=== PATIENT | female | born 1940 | race Caucasian/White ===

== ENCOUNTER 2016-07-19 10:53 | Inpatient (IN) | payer MEDICARE, OTHER ==
[~2016-07-19] VITALS: Ht 165.1 cm; Wt 114.4 kg
[~2016-07-19 10:53] MED LIST: FURO1TAB60 PO; HYDR-3516 PO; LEVA500T PO; Spironolactone PO
[2016-07-19 10:58] VITALS: BP 133/66; PULSE 95; RESP 20; TEMP 98.9; O2SAT 99
[2016-07-19] MEDS ORDERED: CIPR-9 PO (11:04)
[2016-07-19] MEDS ORDERED: ZOFR4TAB PO (11:04)
[2016-07-19] MEDS ORDERED: SODIUM CHLOR 0.9% 1000 ML INJ 1,000 ML IV SCH ×2 (11:22→16:48)
[2016-07-19] MEDS ORDERED: MORPHINE SULFATE 4 MG/ML INJ IV PUSH ONE ×2 (11:45→16:00)
[2016-07-19] MEDS ORDERED: ONDANSETRON HCL 4 MG/2 ML VIAL IV PUSH ONE ×2 (11:45→18:00)
[2016-07-19 12:18] LABS: AUTOMATED NEUTROPHIL # 21.5 TH/MM3 (1.8-7.7); BASOPHIL # 0.1 TH/MM3 (0-0.2); BASOPHIL % 0.3 % (0.0-2.0); EOSINOPHIL % 0.1 % (0.0-4.0); HEMATOCRIT 35.7 % (35.0-46.0); HEMO FLAGS DIFF FINAL; LYMPH % 6.8 % (9.0-44.0); LYMPHOCYTE # 1.7 TH/MM3 (1.0-4.8); MEAN CELL VOLUME 94.4 FL (80.0-100.0); MEAN CORPUSCULAR HEMOGLOBIN 31.9 PG (27.0-34.0); MEAN CORPUSCULAR HGB CONC 33.8 % (32.0-36.0); MONO % 6.7 % (0.0-8.0); NEUT % 86.1 % (16.0-70.0); PLATELET COUNT 299 TH/MM3 (150-450); RED BLOOD COUNT 3.79 MIL/MM3 (4.00-5.30); RED CELL DISTRIBUTION WIDTH 14.9 % (11.6-17.2)
--- NOTE | 2016-07-19 12:18 | PD ---
HPI Chief Complaint: Abdominal Pain Time Seen by Provider: 12:14 Travel History International Travel<30 days: No Contact w/Intl Traveler<30days: No Traveled to known affect area: No History of Present Illness HPI 75-year-old female that presents to the ED for evaluation of abdominal pain that she's had for the past couple of days. Per patient she has a history of a hernia that was repaired in the 90s. Per patient she's been having discomfort in her abdomen since yesterday. Per patient she feels nauseous but she hasn't vomited. The patient her pain is 8 out of 10. She does have a history of chronic lower leg infections for which she sees her doctor. Patient's primary care doctor is Dr. Roberson. Per patient the pain does not radiate and stays mainly on the abdomen. Diffuse. Denies any bowel movement issues and states that her last bowel movement was yesterday. Eating and drinking okay. Patient lives at home with son who takes care of her. She denies any trauma. No fevers chills or sweats. No allergies to medication. She has not seen anybody for this. No bleeding. Nothing makes it better. Touching makes the pain worse. PFSH Past Medical History Arthritis: Yes Heart Rhythm Problems: Yes (a. fib) Cancer: No Cardiovascular Problems: Yes Endocrine: No Gastrointestinal Disorders: Yes Genitourinary: No Hypertension: Yes Immune Disorder: No Implanted Vascular Access Dvce: No Musculoskeletal: Yes (RT ELBOW INJURY) Neurologic: Yes Psychiatric: No Reproductive: No Respiratory: No Migraines: Yes Thyroid Disease: Yes Tetanus Vaccination: Unknown ?: Not : 3 Para: 2 Miscarriage: 1 Past Surgical History Abdominal Surgery: Yes (CHOLECYSTECTOMY, HERNIA REPAIR) Cholecystectomy: Yes Eye Surgery: Yes Other Surgery: Yes Social History Alcohol Use: No Tobacco Use: No Substance Use: No Allergies-Medications (Allergen,Severity, Reaction): Coded Allergies: No Known Allergies (Unverified , 07/19/16) Reported Meds & Prescriptions Reported Meds & Active Scripts Active Lasix (Furosemide) 40 Mg Tab 40 Mg PO DAILY 90 Days Reported Zofran (Ondansetron HCl) 4 Mg Tab 4 Mg PO Q6HR PRN Cipro (Ciprofloxacin HCl) 500 Mg Tab 500 Mg PO BID Review of Systems General / Constitutional: No: Fever, Chills, Weight Gain, Weight Loss, Other Eyes: No: Diploplia, Blurred Vision, Photophobia, Drainage, Redness, Foreign Body Sensation, Pain, Tearing, Blind Spots, Visual changes, Blindness, Other HENT: No: Headaches, Vertigo, Lightheadedness, Sore Throat, Rhinitis, Rhinorrhea, Congestion, Nosebleed, Neck Stiffness, Neck Pain, Masses, Gingival Bleeding, Dental Difficulties, Ear Discharge, Earache, Other Cardiovascular: No: Chest Pain or Discomfort, Palpitations, Irregular Rhythm, Tachycardia, Diaphoresis, Syncope, Dyspnea on exertion, Varicosities, Edema, Cyanosis, Varicosities, Phlebitis, Claudication, Other Respiratory: No: Cough, Shortness of Breath, Wheezing, Sneezing, Orthopnea, Hemoptysis, Stridor, Night Sweats, Pleuritic Pain, Other Gastrointestinal: Positive: Nausea, Abdominal Pain, No: Vomiting, Diarrhea, Hematemesis, Hematochezia, Constipation, Changes in Bowel Habits, Indigestion, Dysphagia, Loss of Appetite, Other Genitourinary: No: Urgency, Frequency, Dysuria, Nocturia, Hematuria, Decreased Urinary Output, Oliguria, Hesitancy, Dribbling, Incontinence, Pelvic Pain, Flank Pain, Dyspareunia, Discharge, Dysmenorrhea, Menorrhagia, Metorrhagia, Vaginal Bleeding, Other Musculoskeletal: No: Myalgias, Arthralgias, Limited ROM, Weakness, Cramping, Edema, Pain, Atrophy, Other Skin: Positive Lumps, No Rash, No Itching, No Dryness, No Hives, No Change in Pigmentation, No Change in nails, No Alopecia, No Lesions, No Breast Lumps, No Breast Tenderness, No Breast Swelling, No Other Neurologic: No: Weakness, Dizziness, Syncope, Focal Abnormalities, Coordination Problem, Tremor, Ataxia, Headache, Change in Mentation, Slurred Speech, Paresthesia, Incontinence, Seizures, Sensory Disturbance, Other Psychiatric: No: Anxiety, Depression, Suicidal Ideations, Disorder of Thought, Mood Disorder, Substance Abuse, Homicidal Ideation, Other Endocrine: No: Heat Intolerance, Cold Intolerance, Polyuria, Polydipsia, Other Hematologic/Lymphatic: No: Easy Bruising, Lymph Node Enlargement, Other Physical Exam Narrative GENERAL: SKIN: Warm and dry. HEAD: Atraumatic. Normocephalic. EYES: Pupils equal and round. No scleral icterus. No injection or drainage. ENT: No nasal bleeding or discharge. Mucous membranes pink and moist. Tongue is midline. No uvula deviation. NECK: Trachea midline. No JVD. CARDIOVASCULAR: Regular rate and rhythm. No murmurs, S3, S4. RESPIRATORY: No accessory muscle use. Clear to auscultation. Breath sounds equal bilaterally. GASTROINTESTINAL: Abdomen soft, patient has what appears to be a small hernia on the mid epigastric area. She does have what appears to be very erythema with purulence with a small opening that is draining some purulence material. This is located just above the umbilical area. About 2 cm in diameter. Tender to touch in this area, nondistended. Hepatic and splenic margins not palpable. MUSCULOSKELETAL: Extremities without clubbing, cyanosis, or edema. No obvious deformities. Full range of motion of the upper and lower extremities bilaterally. 2+ pulses bilaterally. NEUROLOGICAL: Awake and alert. No obvious cranial nerve deficits. Motor grossly within normal limits. Five out of 5 muscle strength in the arms and legs. Normal speech. PSYCHIATRIC: Appropriate mood and affect; insight and judgment normal. Data Data Last Documented VS Vital Signs Date Time Temp Pulse Resp B/P Pulse Ox O2 Delivery O2 Flow Rate FiO2 07/19/16 13:40 89 22 132/78 98 07/19/16 10:58 98.9 Orders Complete Blood Count With Diff (07/19/16 11:22) Comprehensive Metabolic Panel (07/19/16 11:22) Lipase (07/19/16 11:22) Prothrombin Time / Inr (Pt) (07/19/16 11:22) Act Partial Throm Time (Ptt) (07/19/16 11:22) Urinalysis - C+S If Indicated (07/19/16 11:22) Ct Abd/Pel W Iv Contrast(Rout) (07/19/16 11:22) Iv Access Insert/Monitor (07/19/16 11:22) Sodium Chlor 0.9% 1000 Ml Inj (Ns 1000 M (07/19/16 11:22) Morphine Inj (Morphine Inj) (07/19/16 11:45) Ondansetron Inj (Zofran Inj) (07/19/16 11:45) Blood Culture (07/19/16 11:36) Lactic Acid Sepsis Protocol (07/19/16 11:36) Wound Culture And Gram Stain (07/19/16 11:42) Iodixanol 320 Inj (Rad Ct) (Visipaque 32 (07/19/16 13:29) Vancomycin Inj (Vancomycin Inj) (07/19/16 13:44) Piperacil-Tazo 4.5 Gm Premix (Zosyn 4.5 (07/19/16 13:44) Ng Gastric Tube Insert/Monitor (07/19/16 14:41) Morphine Inj (Morphine Inj) (07/19/16 16:00) Labs Laboratory Tests Test 07/19/16 07/19/16 12:00 12:50 White Blood Count 25.0 TH/MM3 Red Blood Count 3.79 MIL/MM3 Hemoglobin 12.1 GM/DL Hematocrit 35.7 % Mean Corpuscular Volume 94.4 FL Mean Corpuscular Hemoglobin 31.9 PG Mean Corpuscular Hemoglobin 33.8 % Concent Red Cell Distribution Width 14.9 % Platelet Count 299 TH/MM3 Mean Platelet Volume 8.2 FL Neutrophils (%) (Auto) 86.1 % Lymphocytes (%) (Auto) 6.8 % Monocytes (%) (Auto) 6.7 % Eosinophils (%) (Auto) 0.1 % Basophils (%) (Auto) 0.3 % Neutrophils # (Auto) 21.5 TH/MM3 Lymphocytes # (Auto) 1.7 TH/MM3 Monocytes # (Auto) 1.7 TH/MM3 Eosinophils # (Auto) 0.0 TH/MM3 Basophils # (Auto) 0.1 TH/MM3 CBC Comment DIFF FINAL Differential Comment Sodium Level 136 MEQ/L Potassium Level 4.0 MEQ/L Chloride Level 103 MEQ/L Carbon Dioxide Level 23.1 MEQ/L Anion Gap 10 MEQ/L Blood Urea Nitrogen 25 MG/DL Creatinine 1.30 MG/DL Estimat Glomerular Filtration 40 ML/MIN Rate Random Glucose 119 MG/DL Lactic Acid Level 1.8 mmol/L Calcium Level 8.6 MG/DL Total Bilirubin 0.6 MG/DL Aspartate Amino Transf 40 U/L (AST/SGOT) Alanine Aminotransferase 54 U/L (ALT/SGPT) Alkaline Phosphatase 120 U/L Total Protein 8.3 GM/DL Albumin 3.0 GM/DL Lipase 75 U/L Prothrombin Time 12.5 SEC Prothromb Time International 1.1 RATIO Ratio Activated Partial 31.2 SEC Thromboplast Time MDM Medical Decision Making Medical Screen Exam Complete: Yes Emergency Medical Condition: Yes Medical Record Reviewed: Yes Interpretation(s) CBC & BMP Diagram 07/19/16 12:00 LFTs and lipase WNL lactic acid WNL Last Impressions Abdomen/Pelvis CT 07/19/16 1122 Signed Impressions: Service Date/Time: July 13:26 - CONCLUSION: 1. Large ventral hernia containing small and large bowel. Several small bowel loops appear incarcerated with some fecalization of small bowel contents and dilatation characteristic of at least a partial small bowel obstruction. Martín Anaya MD Differential Diagnosis Abscesses versus acute abdomen versus abdominal obstruction versus cellulitis versus pancreatitis versus hernia versus strangulated hernia Narrative Course 75-year-old female that presents to the ED for evaluation of abdominal pain. Patient was properly examined and was found to have signs and symptoms consistent appears to be abdominal pain likely from infection. Recommendation at this time is for labs and imaging. Patient was given IV pain medication with good results. Labs and imaging showed leukocytosis and incarcerated hernia with possible small bowel partial obstruction. Case was discussed in my attending Dr. Mani Arreguin who agrees that Gen. surgery should be contacted. I spoke personally with Dr. Arreguin who states that he will come here and see the patient and likely admit for possible surgery. This was discussed with the patient who agrees with plan. Dr. Arreguin came in and evaluated the patient and recommends admission to his service. Likely surgery. Sepsis Criteria SIRS Criteria (2 or more): Heart rate over 90, WBC > 29849, < 4000 or > 10% bands Sepsis Criteria (SIRS+source): Infect source susp/known Criteria Outcome: Meets sepsis criteria Diagnosis Primary Impression: Incarcerated hernia Additional Impressions: Sepsis Qualified Code: A41.9 - Sepsis, due to unspecified organism Partial small bowel obstruction Admitting Information Admitting Physician Requests: Admit Librado Gutierrez Jul 19, 2016 12:18
[2016-07-19 12:47] LABS: ANION GAP 10 MEQ/L (5-15); AST (GOT) 40 U/L (15-37); BICARBONATE 23.1 MEQ/L (21.0-32.0); BLOOD UREA NITROGEN 25 MG/DL (7-18); CHLORIDE 103 MEQ/L (98-107); GLOMERULAR FILTRATION RATE 40 ML/MIN (>89); SODIUM (NA) 136 MEQ/L (136-145)
[2016-07-19 12:51] LABS: ALKALINE PHOSPHATASE 120 U/L (45-117); ALT (GPT) 54 U/L (10-53); TOTAL BILIRUBIN ADULT 0.6 MG/DL (0.2-1.0)
[2016-07-19 13:19] LABS: APTT (PATIENT) 31.2 SEC (24.3-30.1); INTERNATIONAL NORMALIZED RATIO 1.1 RATIO; PROTHROMBIN TIME - PATIENT 12.5 SEC (9.8-11.6)
[2016-07-19] MEDS ORDERED: IODIXANOL 320 MG/ML 10 ML VIAL (for Rad CT) IV ONE (13:29)
[2016-07-19 13:40] VITALS: BP 132/78; PULSE 89; RESP 22; O2SAT 98
[2016-07-19] MEDS ORDERED: VANCOMYCIN INJ 1,000 MG in SODIUM CHLOR 0.9% 250 ML INJ 250 ML IV STA (13:44)
[2016-07-19] MEDS ORDERED: PIPERACIL-TAZO 4.5 GM PREMIX 100 ML IV STA (13:44)
--- NOTE | 2016-07-19 14:30 | RADRPT ---
EXAM DATE/TIME: 07/19/2016 13:26 [facility] COMPARISON: No previous studies available for comparison. INDICATIONS : Right upper quadrant pain. IV CONTRAST: 47 cc Visipaque (iodixanol) IV ORAL CONTRAST: No oral contrast ingested. RADIATION DOSE: 15.98 CTDIvol (mGy) MEDICAL HISTORY : Hypertension. Cardiovascular disease SURGICAL HISTORY : Cholecystectomy. Umbilical hernia repair. ENCOUNTER: Initial ACUITY: 2 days PAIN SCALE: 6/10 LOCATION: Right upper quadrant TECHNIQUE: Volumetric scanning of the abdomen and pelvis was performed. Using automated exposure control and ad justment of the mA and/or kV according to patient size, radiation dose was kept as low as reasonably achievable to obtain optimal diagnostic quality images. FINDINGS: There is a large predominantly right-sided ventral hernia containing multiple loops of small bowel. S everal small bowel loops appear incarcerated with some fecalization of small bowel contents and at le ast a partial small bowel obstruction. There is also a loop of colon within the ventral hernia. No significant abnormality the liver, spleen, adrenals, kidneys or pancreas. No calcified gallstones a very ductal dilatation. No free air or free fluid. CONCLUSION: 1. Large ventral hernia containing small and large bowel. Several small bowel loops appear incarcerat ed with some fecalization of small bowel contents and dilatation characteristic of at least a partial small bowel obstruction. Martín Anaya MD on July 19, 2016 at 14:25 Board Certified Radiologist. This report was verified electronically.
[2016-07-19] MEDS ORDERED: ceFAZolin INJ 1,000 MG VIAL ONE (17:33)
[2016-07-19 17:45] LABS: BACTERIA, URINE OCC /hpf; BLOOD, URINE MOD (NEG); COMMENT (UR) CULT NOT INDICATED; CULTURE IF INDICATED CULT NOT INDICATED; GLUCOSE,URINE NEG (NEG); KETONE, URINE NEG (NEG); MUCUS URINE FEW /lpf (OCC); NITRITE,URINE NEG (NEG); PH, URINE 5.5 (5.0-8.5); SQUAMOUS EPITHELIAL CELL URINE 3 /hpf (0-5); URINE COLOR YELLOW (YELLW/STRAW)
[2016-07-19 17:50] VITALS: BP 132/74
[2016-07-19] MEDS ORDERED: SODIUM CHLOR 0.9% 250 ML INJ 250 ML IV ONE (18:00)
[2016-07-19] MEDS ORDERED: PHENYLEPH/NS 1000 MCG/10 ML SYR IV ONE (18:00)
[2016-07-19] MEDS ORDERED: NORMOSOL R INJ 3,000 ML IV ONE (18:00)
[2016-07-19] MEDS ORDERED: PROPOFOL 200 MG/20 ML AMP IV ONE (18:00)
[2016-07-19] MEDS ORDERED: SODIUM CHLORID 0.9% 500 ML INJ 500 ML IV ONE (18:00)
[2016-07-19] MEDS ORDERED: LACTATED RINGER'S 1000 ML INJ 1,000 ML IV ONE (18:00)
--- NOTE | 2016-07-19 18:09 | HHI.HP ---
[facility] Service General surgery Primary Care Physician Jose Enrique Roberson MD Admission Diagnosis incarcerated hernia, sepsis, partial obstruction Chief Complaint: Abdominal pain History of Present Illness This is a 75-year-old female who has had abdominal pain since yesterday. She has had nausea but no vomiting. The patient is somewhat of a poor historian. She does state that in 1995 she had a ventral hernia repair in that same year she ended up having a cholecystectomy. She says that this past December she had an issue with the recurrent abdominal hernia but that resolved. She has had no problems since then until yesterday. She states that she has had bowel movement and flatus as recently as yesterday. She does have bilateral lower extremity wounds which are wraps at this time. She sees wound care for this. She is on clindamycin currently for the lower extremity wounds. In the emergency department she was noted on exam to have a large non-reducible ventral hernia with drainage from the midportion. Lab's revealed a white blood count of 25,[address] abdomen and pelvis shows an at least partially incarcerated large ventral hernia including small and large bowel. There is feculization of some of the small bowel. Review of Systems Constitutional: DENIES: Fever, Chills Eyes: DENIES: Eye inflammation Respiratory: DENIES: Cough, Sputum production Cardiovascular: DENIES: Chest pain, Palpitations Gastrointestinal: COMPLAINS OF: Abdominal pain, Nausea Musculoskeletal: DENIES: Back pain, Neck pain Integumentary: DENIES: Pruritus, Rash Past Family Social History Past Medical History Bilateral lower extremity wounds Hypertension Questionable atrial fibrillation per the chart Past Surgical History Cholecystectomy, ventral hernia repair Reported Medications Reported Meds & Active Scripts Active Lasix (Furosemide) 40 Mg Tab 40 Mg PO DAILY 90 Days Reported Zofran (Ondansetron HCl) 4 Mg Tab 4 Mg PO Q6HR PRN Cipro (Ciprofloxacin HCl) 500 Mg Tab 500 Mg PO BID Allergies: Coded Allergies: No Known Allergies (Unverified , 07/19/16) Family History Noncontributory Social History No alcohol tobacco or drug use. She lives with her son. Physical Exam Vital Signs Vital Signs Date Time Temp Pulse Resp B/P Pulse Ox O2 Delivery O2 Flow Rate FiO2 07/19/16 13:40 89 22 132/78 98 07/19/16 10:58 98.9 95 20 133/66 99 Physical Exam GENERAL: Somewhat sleepy. Appears uncomfortable. Overweight. Frail and somewhat chronically ill-appearing. HEAD: Normocephalic. Atraumatic. EYES: Pupils equal round and reactive to light bilaterally. No scleral icterus. ENT: NG tube in place with some serosanguineous output CHEST: Lungs clear to auscultation bilaterally with no wheezing or rhonchi. No respiratory distress. CARDIOVASCULAR: Regular rate and rhythm. ABDOMEN: Very large ventral hernia with firm bowel present. It is not reducible. It is only mildly tender. There is a 4 cm area of blistering skin with small amount of purulent drainage in the middle. She has well-healed incisions in the right upper abdomen. Moderate tenderness in the right abdomen away from the hernia. The left upper abdomen is nontender. EXTREMITIES: Bandages along lower legs. SKIN: cool, dry, nonjaundiced. Laboratory Laboratory Tests Test 07/19/16 07/19/16 07/19/16 12:00 12:50 17:00 White Blood Count 25.0 Red Blood Count 3.79 Hemoglobin 12.1 Hematocrit 35.7 Mean Corpuscular Volume 94.4 Mean Corpuscular Hemoglobin 31.9 Mean Corpuscular Hemoglobin 33.8 Concent Red Cell Distribution Width 14.9 Platelet Count 299 Mean Platelet Volume 8.2 Neutrophils (%) (Auto) 86.1 Lymphocytes (%) (Auto) 6.8 Monocytes (%) (Auto) 6.7 Eosinophils (%) (Auto) 0.1 Basophils (%) (Auto) 0.3 Neutrophils # (Auto) 21.5 Lymphocytes # (Auto) 1.7 Monocytes # (Auto) 1.7 Eosinophils # (Auto) 0.0 Basophils # (Auto) 0.1 CBC Comment DIFF FINAL Differential Comment Sodium Level 136 Potassium Level 4.0 Chloride Level 103 Carbon Dioxide Level 23.1 Anion Gap 10 Blood Urea Nitrogen 25 Creatinine 1.30 Estimat Glomerular Filtration 40 Rate Random Glucose 119 Lactic Acid Level 1.8 Calcium Level 8.6 Total Bilirubin 0.6 Aspartate Amino Transf 40 (AST/SGOT) Alanine Aminotransferase 54 (ALT/SGPT) Alkaline Phosphatase 120 Total Protein 8.3 Albumin 3.0 Lipase 75 Prothrombin Time 12.5 Prothromb Time International 1.1 Ratio Activated Partial 31.2 Thromboplast Time Urine Color YELLOW Urine Turbidity HAZY Urine pH 5.5 Urine Specific [place] GREATER THAN 1.050 Urine Protein 30 Urine Glucose (UA) NEG Urine Ketones NEG Urine Occult Blood MOD Urine Nitrite NEG Urine Bilirubin NEG Urine Urobilinogen LESS THAN 2.0 Urine Leukocyte Esterase NEG Urine RBC 7 Urine WBC 6 Urine Squamous Epithelial 3 Cells Urine Bacteria OCC Urine Mucus FEW Microscopic Urinalysis Comment CULT NOT INDICATED Date/Time Procedure Status Source Growth 07/19/16 12:10 Gram Stain Received Wound Abdomen Pending 07/19/16 12:10 Wound Culture Received Wound Abdomen Pending 07/19/16 12:05 Aerobic Blood Culture Received Blood Peripheral Pending 07/19/16 12:05 Anaerobic Blood Culture Received Blood Peripheral Pending Result Diagram: 07/19/16 1200 07/19/16 1200 Imaging Last Impressions Abdomen/Pelvis CT 07/19/16 1122 Signed Impressions: Service Date/Time: July 13:26 - CONCLUSION: 1. Large ventral hernia containing small and large bowel. Several small bowel loops appear incarcerated with some fecalization of small bowel contents and dilatation characteristic of at least a partial small bowel obstruction. Martín Anaya MD Assessment and Plan Assessment and Plan 75-year-old female with acute incarceration of small bowel and colon in a large ventral incisional recurrent hernia. There appears to be a possible fistula but this is also acute. I think the best option is to proceed with laparotomy to decrease risk of ischemic bowel. I discussed with the patient that she may require small bowel resection and possibly colostomy. She may have a large wound. She will likely have a somewhat prolonged hospitalization. I also spoke with her son by phone. She desires to proceed at this time. Consents are being obtained. RodríguezRaffi guo MD Jul 19, 2016 18:09
[2016-07-19] MEDS ORDERED: metroNIDAZOLE 500 MG INJ 100 ML IV ONE (18:15)
[2016-07-19] MEDS ORDERED: LEVOFLOXACIN 500 MG PREMIX INJ 100 ML IV ONE (18:15)
[2016-07-19] MEDS ORDERED: SUGAMMADEX SODIUM 200 MG/2 ML VIAL IV PUSH ONE ×2 (18:18)
[2016-07-19 21:10] LABS: BLOOD GAS BASE EXCESS -6.8 mmol/L (-2-2); BLOOD GAS CARBOXYHEMOGLOBIN 2.2 % (0-4); BLOOD GAS HCO3 18 mmol/L (22-26); BLOOD GAS METHEMOGLOBIN 0.9 % (0-2); BLOOD GAS O2 HGB SATURATION 97 % (90-100); BLOOD GAS OXYGEN CONTENT 15.7 Vol % (12.0-20.0); BLOOD GAS PCO2 32 mmHg (38-42); BLOOD GAS PO2 226 mmHg (61-120); BLOOD GAS TOTAL HGB 11.2 G/DL (12.0-16.0); CRITICAL VALUE NO; DRAW SITE ART LINE; FIO2 60 %; OXYGEN DEVICE O.R. GAS; STAT YES; TEMP CORR TO 98.6; VENT SETTINGS O.R. GAS
--- NOTE | 2016-07-19 21:59 | HHI.PR ---
cc: Raffi Arreguin MD; Jose Enrique Roberson MD Immediate Post Op Note Procedure Date: Jul 19, 2016 Pre Op Diagnosis: (1) Incarcerated hernia Post Op Diagnosis: (1) Incarcerated hernia (2) Small bowel strangulation Surgeon: Raffi Arreguin Mingle Operator(s): Latrell Procedure: Exploratory laparotomy Lysis of adhesions > 1hr Ileocecectomy Primary repair recurrent incarcerated ventral incisional hernia Findings: dense adhesions large incarcerated ventral incisional hernia Small bowel and cecal ischemia Complications: none Specimen(s) removed: lleum/cecum/appendix Estimated blood loss: 200cc Anesthesia: General Drains: None Fluids: 4L Patient to: PACU Patient Condition: Raffi Richards MD Jul 19, 2016 21:59
[2016-07-19] MEDS ORDERED: Post-op Orders (for Pharmacy) MISC XX ONE (22:00)
[2016-07-19] MEDS ORDERED: SODIUM CHLORIDE 0.9% FLUSH 5 ML FLUSH IVF PRN (22:00)
[2016-07-19] MEDS ORDERED: HYDROmorphone HCL PCA 6 MG/30 ML IV SCH (22:00)
[2016-07-19] MEDS ORDERED: ACETAMINOPHEN 1000 MG/100 ML VIAL IV SCH (22:00)
[2016-07-19] MEDS ORDERED: ONDANSETRON HCL 4 MG/2 ML VIAL IV PRN (22:00)
[2016-07-19] MEDS ORDERED: BENZOCAINE 20% ORAL SPR 60 ML CAN MT PRN (22:00)
[2016-07-19] MEDS ORDERED: PANTOPRAZOLE SODIUM 40 MG VIAL IV SCH (22:00)
[2016-07-19] MEDS: PCA - TOTAL MG DILAUDID DELIVERED PER SHIFT OTHER SCH (22:00)
[2016-07-19] MEDS ORDERED: NALOXONE HCL 0.4 MG/ML AMP IV PRN ×2 (22:00)
[2016-07-19] MEDS ORDERED: DO NOT ADM ANY ANTICOAGULANT DRUGS XX PRN (22:10)
[2016-07-19] MEDS ORDERED: fentaNYL CITRATE 250 MCG/5 ML AMP ONE (22:13)
[2016-07-19] MEDS ORDERED: *HYDROmorphone PF 1 MG VIAL PERIprocedural Use ONLY ONE (22:36)
[2016-07-19] MEDS ORDERED: HYDROmorphone HCL PF 1 MG/ML VIAL IV ONE (22:40)
[2016-07-19] MEDS: LACTATED RINGER'S 1000 ML INJ 1,000 ML IV SCH (23:00)
[2016-07-19] MEDS ORDERED: SODIUM CHLOR 0.9% 1000 ML INJ 1,000 ML IV ONE (23:45)
--- NOTE | 2016-07-19 23:48 | PD.OP ---
cc: Raffi Arreguin MD Operative Report Date of Surgery: Jul 19, 2016 Preoperative Diagnosis: (1) Incarcerated hernia (2) Small bowel strangulation Postoperative Diagnosis: (1) Enterocutaneous fistula (2) Incarcerated hernia (3) Small bowel strangulation Procedure: Exploratory laparotomy Lysis of adhesions greater than one hour Ileocecectomy [place]own of enterocutaneous fistula Primary repair of recurrent incarcerated ventral incisional hernia Anesthesia: ALKA Surgeon: Raffi Arreguin Aboriginal Liaison Officer(s): Latrell Operation and Findings: Estimated blood loss: 200 cc Complications: None apparent Indications: This is a 75-year-old female with a very large incarcerated ventral incisional hernia. She reportedly had repair of a hernia in this area and 1995. She was a somewhat poor historian but apparently this past summer she was evaluated for the hernia but improved. Yesterday she developed abdominal pain which increased in severity. She came to the emergency room today was noted to have a large incarcerated ventral hernia with abdominal tenderness leukocytosis of 25,[address] scan concerning for incarcerated hernia with partial bowel obstruction. After detailed discussion with the patient as well as discussion by phone with her son we opted to proceed to the operating room. Operative findings: The patient had extensive fairly dense adhesions in the hernia sac. There was incarcerated colon as well as small bowel. A fairly significant portion of small bowel was ischemic. The cecum did not appear healthy and had a couple of patchy ischemic areas. There was a developing enterocutaneous fistula which was taken down and that portion of small bowel removed with the ileocecectomy. The overlying skin of the umbilicus which is where the fistula was present was excised. The fascia actually had minimal tension and was closed primarily. Procedure in detail: The patient was taken to the operating room and placed in supine position. Gen. endotracheal anesthesia was induced. The abdomen was prepped and draped in usual sterile fashion. Surgical timeout was performed to verify correct patient procedure and site. Patient was administered antibiotics. NG tube was already in place and a Martin catheter had been placed. An incision was made overlying the hernia partially and an area of the previous scar. Careful dissection was performed to delineate the anatomy and underlying bowel was identified and noted to be dusky appearing. Sharp and blunt dissection was performed to separate extensive adhesions between hernia sac, abdominal wall, small bowel and colon. This portion of the case took between 1 and 2 hours. There were 2 or 3 very large hernias with bridging fascia and also multiple smaller hernia surrounding this. There was evidence of multiple sutures from previous repair. There was an area of developing small intestine fistulization to the overlying skin. There was drainage at this site which was near the umbilicus. The tract was divided. There were no enterotomies visible. The fascia intra-abdominally was also cleared of adhesions. A significant portion of the ileum was ischemic and the cecum had patchy ischemic areas. Therefore I chose to perform an ileocecectomy which included ischemic small bowel as well as the area of enterocutaneous fistula. The mesentery was divided at a site chosen in the healthy-appearing ileum and this was transected with a ALEXY blue load. A site in the ascending colon which was healthy-appearing was transected with a ALEXY blue load. The mesentery was divided with the Harmonic. The specimen was removed. The ascending colon appeared dusky and was divided more proximally. The new site appeared healthy and well perfused. A [id number] functional end-to-end anastomosis was performed with a ALEXY blue load stapler after creating enterotomies in the ileum and ascending colon portions. A 3-0 silk suture was placed at the crotch of the staple line. The mesenteric defect was closed with running 2-0 silk suture. The anastomotic dissection was allowed to reenter the abdomen. There had been some spillage of succus in the abdomen was copiously irrigated with 5 L of warm normal saline. At this point, the fascia was closed with running #1 looped PDS and a couple of interrupted internal retention sutures with #1 PDS. In the subcutaneous tissue, hernia sac and necrotic fat was excised and the fascial edge better delineated. Further skin and subcutaneous tissue was excised to decrease the area of space and decrease flap size. A deep layer of 2-0 Monocryl was placed in the subcutaneous tissue. Skin was closed loosely with a wide skin stapler. Betadine soaked Telfa was placed in between the estefani. A sterile dressing and an abdominal binder were applied. The patient was in stable condition and extubated and taken to PACU. All sponge and instrument counts were correct. RodríguezRaffi MD Jul 19, 2016 23:48
[2016-07-20] VITALS (14 sets, daily range): BP systolic 97–124; BP diastolic 34–84; PULSE 69–144; RESP 12–25; TEMP 97.6–98; O2SAT 97–100
[2016-07-20] MEDS: KETOROLAC TROMETHAMINE 30 MG/ML (IVP) VIAL IV PUSH SCH ×4 (00:09→18:00)
[2016-07-20] MEDS ORDERED: NOREPINEPHRINE-DEXTROSE DRIP 250 ML IV ONE (01:33)
[2016-07-20] MEDS: metroNIDAZOLE 500 MG INJ 100 ML IV SCH ×3 (01:37→17:40)
--- NOTE | 2016-07-20 02:18 | PD.CONS ---
[facility] Service Critical Care Medicine Consult Requested By Dr. Dallas Arreguin Reason for Consult Critical Care Management Primary Care Physician Jose Enrique Roberson MD History of Present Illness 75 y/o woman s/p laparotomy and resection of ischemic terminal ileum and cecum found incarcerated in a complex ventral hernia. I have seen her directly on her arrival to the [facility] postop. NG tube in place with good proximal decompression. She is lethargic but protects her airway well. Urine is concentrated, limbs are well perfused. Review of Systems ROS Unobtainable aside from no chest pain or SOB. No family. Past Family Social History Allergies: Coded Allergies: No Known Allergies (Unverified , 07/19/16) Past Medical History Past Medical History Arthritis: Yes Heart Rhythm Problems: Yes (a. fib) Cancer: No Cardiovascular Problems: Yes Endocrine: No Gastrointestinal Disorders: Yes Genitourinary: No Hypertension: Yes Immune Disorder: No Implanted Vascular Access Dvce: No Musculoskeletal: Yes (RT ELBOW INJURY) Neurologic: Yes Psychiatric: No Reproductive: No Respiratory: No Migraines: Yes Thyroid Disease: Yes Tetanus Vaccination: Unknown ?: Not : 3 Para: 2 Miscarriage: 1 Past Surgical History Abdominal Surgery: Yes (CHOLECYSTECTOMY, HERNIA REPAIR) Cholecystectomy: Yes Eye Surgery: Yes Other Surgery: Yes Social History Alcohol Use: No Tobacco Use: No Substance Use: No Allergies-Medications Allergies-Medications (Allergen,Severity, Reaction): Coded Allergies: No Known Allergies (Unverified , 07/19/16) Reported Meds & Prescriptions Reported Meds & Active Scripts Active Lasix (Furosemide) 40 Mg Tab 40 Mg PO DAILY 90 Days Reported Zofran (Ondansetron HCl) 4 Mg Tab 4 Mg PO Q6HR PRN Cipro (Ciprofloxacin HCl) 500 Mg Tab 500 Mg PO BID Physical Exam Vital Signs Vital Signs Date Time Temp Pulse Resp B/P Pulse Ox O2 Delivery O2 Flow Rate FiO2 07/20/16 00:45 97.6 83 25 113/51 100 98/34 07/20/16 00:45 83 07/20/16 00:14 97.9 83 14 98 109/45 07/20/16 00:00 80 12 96/44 98 110/40 07/19/16 23:45 81 12 103/55 98 109/42 07/19/16 23:30 88 14 74/41 98 Nasal Cannula 3 108/44 07/19/16 23:15 89 15 89/44 99 Nasal Cannula 3 89/43 07/19/16 23:00 77 14 74/41 99 Simple Mask 6 89/44 07/19/16 23:00 12 07/19/16 22:45 83 14 91/44 99 Simple Mask 6 95/34 07/19/16 22:30 81 15 95/41 96 Simple Mask 6 103/38 07/19/16 22:15 106 15 97/56 98 Simple Mask 6 106/44 07/19/16 22:05 98.9 99 17 113/55 95 Simple Mask 6 96/32 07/19/16 17:50 88 20 132/74 97 07/19/16 13:40 89 22 132/78 98 07/19/16 10:58 98.9 95 20 133/66 99 Physical Exam P 83, SBP 86, R 13, Sats 95% Head: Normal. NG in place. Neck: Supple, airway widely patent. No stridor or snoring. Lungs: Clear, goo excursions. Heart: NL S1S2, no JVD. Abdomen: Binder in place. Extremities: Wraps both lowers. Well perfused. Neuro: Lethargic. Moves arms with purpose. Laboratory Laboratory Tests Test 07/19/16 07/19/16 07/19/16 07/19/16 12:00 12:50 17:00 20:54 White Blood Count 25.0 Red Blood Count 3.79 Hemoglobin 12.1 Hematocrit 35.7 Mean Corpuscular Volume 94.4 Mean Corpuscular Hemoglobin 31.9 Mean Corpuscular Hemoglobin 33.8 Concent Red Cell Distribution Width 14.9 Platelet Count 299 Mean Platelet Volume 8.2 Neutrophils (%) (Auto) 86.1 Lymphocytes (%) (Auto) 6.8 Monocytes (%) (Auto) 6.7 Eosinophils (%) (Auto) 0.1 Basophils (%) (Auto) 0.3 Neutrophils # (Auto) 21.5 Lymphocytes # (Auto) 1.7 Monocytes # (Auto) 1.7 Eosinophils # (Auto) 0.0 Basophils # (Auto) 0.1 CBC Comment DIFF FINAL Differential Comment Sodium Level 136 Potassium Level 4.0 Chloride Level 103 Carbon Dioxide Level 23.1 Anion Gap 10 Blood Urea Nitrogen 25 Creatinine 1.30 Estimat Glomerular Filtration 40 Rate Random Glucose 119 Lactic Acid Level 1.8 Calcium Level 8.6 Total Bilirubin 0.6 Aspartate Amino Transf 40 (AST/SGOT) Alanine Aminotransferase 54 (ALT/SGPT) Alkaline Phosphatase 120 Total Protein 8.3 Albumin 3.0 Lipase 75 Prothrombin Time 12.5 Prothromb Time International 1.1 Ratio Activated Partial 31.2 Thromboplast Time Urine Color YELLOW Urine Turbidity HAZY Urine pH 5.5 Urine Specific [place] GREATER THAN 1.050 Urine Protein 30 Urine Glucose (UA) NEG Urine Ketones NEG Urine Occult Blood MOD Urine Nitrite NEG Urine Bilirubin NEG Urine Urobilinogen LESS THAN 2.0 Urine Leukocyte Esterase NEG Urine RBC 7 Urine WBC 6 Urine Squamous Epithelial 3 Cells Urine Bacteria OCC Urine Mucus FEW Microscopic Urinalysis Comment CULT NOT INDICATED Blood Gas Puncture Site ART LINE Blood Gas Patient Temperature 98.6 Blood Gas HCO3 18 Blood Gas Base Excess -6.8 Blood Gas Oxygen Saturation 97 Arterial Blood pH 7.36 Arterial Blood Partial 32 Pressure CO2 Arterial Blood Partial 226 Pressure O2 Arterial Blood Oxygen Content 15.7 Arterial Blood 2.2 Carboxyhemoglobin Arterial Blood Methemoglobin 0.9 Blood Gas Hemoglobin 11.2 Oxygen Delivery Device O.R. GAS Blood Gas Ventilator Setting O.R. GAS Blood Gas Inspired Oxygen 60 Date/Time Procedure Status Source Growth 07/19/16 12:10 Gram Stain Received Wound Abdomen Pending 07/19/16 12:10 Wound Culture Received Wound Abdomen Pending 07/19/16 12:05 Aerobic Blood Culture Received Blood Peripheral Pending 07/19/16 12:05 Anaerobic Blood Culture Received Blood Peripheral Pending Result Diagram: 07/19/16 1200 07/19/16 1200 Assessment and Plan Assessment and Plan Assessment: 1. S/P emergency bowel resection. 2. NILAM with dehydration. 3. Chronic lower leg edema and cellulitis. Plan: 1. Hydrate with additional liter NS. 2. HOB up 30 degrees. 3. Levophed to keep MAP > 65. 4. Pepcid. 5. Avoid SCDs due to leg wounds. 6. Chemical DVT per surgery service. 7. Restart daily lasix when creatinine improves. Overall impression: Bowel obstruction with dehydration and NILAM. Hydrate aggressively. Follow level of sedation closely. Discussed with nurse.. Regan Castle MD Jul 20, 2016 02:18
[2016-07-20 04:51] LABS: AUTOMATED NEUTROPHIL # 14.5 TH/MM3 (1.8-7.7); BASOPHIL % 0.1 % (0.0-2.0); HEMATOCRIT 25.7 % (35.0-46.0); HEMO FLAGS DIFF FINAL; LYMPH % 5.5 % (9.0-44.0); LYMPHOCYTE # 0.9 TH/MM3 (1.0-4.8); MEAN CORPUSCULAR HEMOGLOBIN 32.1 PG (27.0-34.0); MEAN CORPUSCULAR HGB CONC 34.2 % (32.0-36.0); MONO % 3.8 % (0.0-8.0); NEUT % 90.6 % (16.0-70.0); PLATELET COUNT 202 TH/MM3 (150-450); RED BLOOD COUNT 2.74 MIL/MM3 (4.00-5.30); RED CELL DISTRIBUTION WIDTH 14.9 % (11.6-17.2)
[2016-07-20 05:36] LABS: POTASSIUM 3.6 MEQ/L (3.5-5.1)
[2016-07-20] MEDS: ACETAMINOPHEN 1000 MG/100 ML VIAL IV SCH ×3 (06:00→17:41)
[2016-07-20] MEDS: PCA - TOTAL MG DILAUDID DELIVERED PER SHIFT OTHER SCH ×3 (06:00→22:00)
[2016-07-20 06:13] LABS: CALCIUM-PROTEIN CORRECTED 7.5 MG/DL (8.5-10.1)
[2016-07-20] MEDS: LACTATED RINGER'S 1000 ML INJ 1,000 ML IV SCH ×2 (08:40→17:41)
[2016-07-20] MEDS: SODIUM CHLORIDE 0.9% FLUSH 5 ML FLUSH IVF SCH ×2 (08:41→20:52)
[2016-07-20] MEDS ORDERED: ALBUMIN HUMAN 25% 25 GM/100 ML BAGP IV ONE (11:30)
[2016-07-20] MEDS ORDERED: LACTATED RINGER'S 1000 ML INJ 1,000 ML IV ONE (11:45)
--- NOTE | 2016-07-20 14:05 | HHI.PR ---
Subjective Subjective Notes She is awake and alert. Has some abdominal pain, weakness. BP has been marginal and UOP marginal but adequate. She has received multiple fluid boluses and an albumin bolus. Objective Vitals/I&O Vital Signs Date Time Temp Pulse Resp B/P Pulse Ox O2 Delivery O2 Flow Rate FiO2 07/20/16 12:00 84 07/20/16 07:00 97 Nasal Cannula 3.00 07/20/16 06:00 12 07/20/16 04:00 97.7 97/38 Labs Laboratory Tests Test 07/19/16 07/19/16 07/20/16 07/20/16 17:00 20:54 01:44 04:25 Urine Color YELLOW Urine Turbidity HAZY Urine pH 5.5 Urine Specific [place] GREATER THAN 1.050 Urine Protein 30 Urine Glucose (UA) NEG Urine Ketones NEG Urine Occult Blood MOD Urine Nitrite NEG Urine Bilirubin NEG Urine Urobilinogen LESS THAN 2.0 Urine Leukocyte Esterase NEG Urine RBC 7 Urine WBC 6 Urine Squamous Epithelial 3 Cells Urine Bacteria OCC Urine Mucus FEW Microscopic Urinalysis Comment CULT NOT INDICATED Blood Gas Puncture Site ART LINE Blood Gas Patient Temperature 98.6 Blood Gas HCO3 18 Blood Gas Base Excess -6.8 Blood Gas Oxygen Saturation 97 Arterial Blood pH 7.36 Arterial Blood Partial 32 Pressure CO2 Arterial Blood Partial 226 Pressure O2 Arterial Blood Oxygen Content 15.7 Arterial Blood 2.2 Carboxyhemoglobin Arterial Blood Methemoglobin 0.9 Blood Gas Hemoglobin 11.2 Oxygen Delivery Device O.R. GAS Blood Gas Ventilator Setting O.R. GAS Blood Gas Inspired Oxygen 60 Nasal Screen MRSA (PCR) NEGATIVE White Blood Count 16.0 Red Blood Count 2.74 Hemoglobin 8.8 Hematocrit 25.7 Mean Corpuscular Volume 94.0 Mean Corpuscular Hemoglobin 32.1 Mean Corpuscular Hemoglobin 34.2 Concent Red Cell Distribution Width 14.9 Platelet Count 202 Mean Platelet Volume 7.7 Neutrophils (%) (Auto) 90.6 Lymphocytes (%) (Auto) 5.5 Monocytes (%) (Auto) 3.8 Eosinophils (%) (Auto) 0.0 Basophils (%) (Auto) 0.1 Neutrophils # (Auto) 14.5 Lymphocytes # (Auto) 0.9 Monocytes # (Auto) 0.6 Eosinophils # (Auto) 0.0 Basophils # (Auto) 0.0 CBC Comment DIFF FINAL Differential Comment Sodium Level 142 Potassium Level 3.6 Chloride Level 113 Carbon Dioxide Level 21.0 Anion Gap 8 Blood Urea Nitrogen 20 Creatinine 0.89 Estimat Glomerular Filtration 62 Rate Random Glucose 154 Calcium Level 6.3 Protein Corrected Calcium 7.5 Total Protein 4.7 Date/Time Procedure Status Source Growth 07/19/16 12:10 Gram Stain - Final Resulted Wound Abdomen 07/19/16 12:10 Wound Culture - Preliminary Resulted Wound Abdomen 07/19/16 12:05 Aerobic Blood Culture - Preliminary Resulted Blood Peripheral NO GROWTH IN 1 DAY 07/19/16 12:05 Anaerobic Blood Culture - Preliminary Resulted Blood Peripheral NO GROWTH IN 1 DAY Radiology Last Impressions Abdomen/Pelvis CT 07/19/16 1122 Signed Impressions: Service Date/Time: July 13:26 - CONCLUSION: 1. Large ventral hernia containing small and large bowel. Several small bowel loops appear incarcerated with some fecalization of small bowel contents and dilatation characteristic of at least a partial small bowel obstruction. Martín Anaya MD Narrative Exam NAD, awake and alert CV: RRR Lungs CTAB, 3 L NC O2 Abd: bandage in place. soft. NG to LIS low output Ext: bandages in place A/P Assessment and Plan 75 yo F POD 1 s/p reduction and repair incarcerated recurrent ventral hernia with ileocecectomy Appreciate critical care assistance. Doing ok post op. BP a bit marginal. Cont levaquin/flagyl. Monitor vitals, uop closely. Recheck cbc. Cont ngt and npo status. Wound care nurse caring for LE wounds DVT proph: scds. Lovenox. RodríguezRaffi MD Jul 20, 2016 14:05
[2016-07-20 15:10] LABS: BASOPHIL % 0.2 % (0.0-2.0); EOSINOPHIL % 0.1 % (0.0-4.0); HEMATOCRIT 21.9 % (35.0-46.0); HEMO FLAGS DIFF FINAL; MEAN CELL VOLUME 93.5 FL (80.0-100.0); MEAN CORPUSCULAR HEMOGLOBIN 31.9 PG (27.0-34.0); MEAN CORPUSCULAR HGB CONC 34.1 % (32.0-36.0); NEUT % 82.7 % (16.0-70.0); PLATELET COUNT 152 TH/MM3 (150-450); RED BLOOD COUNT 2.34 MIL/MM3 (4.00-5.30); RED CELL DISTRIBUTION WIDTH 14.8 % (11.6-17.2); WHITE BLOOD COUNT 8.4 TH/MM3 (4.0-11.0)
[2016-07-20] MEDS ORDERED: ADENOSINE IV SOLN 3 MG/ML 2 ML VIAL ONE (17:19)
[2016-07-20] MEDS: LEVOFLOXACIN 750 MG PREMIX INJ 150 ML IV SCH (17:41)
[2016-07-20] MEDS ORDERED: POTASSIUM CHLOR 20 MEQ PREMIX 100 ML IV ONE (18:00)
[2016-07-20] MEDS ORDERED: RESP: ALBUTEROL 2.5 MG/IPRATROPIUM 0.5 MG NEB (PRN) NEB (20:45)
[2016-07-20] MEDS: ENOXAPARIN SODIUM 40 MG/0.4 ML SYRINGE SQ SCH (20:52)
[2016-07-20] MEDS: MAGNESIUM SULFATE 1 GM PREMIX 100 ML IV SCH ×2 (22:08→23:00)
[2016-07-20] MEDS: RESP: ALBUTEROL 2.5 MG/IPRATROPIUM 0.5 MG NEB (SCH) NEB (22:11)
[2016-07-21] VITALS (15 sets, daily range): BP systolic 97–126; BP diastolic 50–61; PULSE 79–88; RESP 18–24; TEMP 97.9–99.1; O2SAT 95–100
[2016-07-21] MEDS: PANTOPRAZOLE SODIUM 40 MG VIAL IV SCH (00:55)
[2016-07-21] MEDS: metroNIDAZOLE 500 MG INJ 100 ML IV SCH ×3 (02:19→18:00)
[2016-07-21] MEDS: RESP: ALBUTEROL 2.5 MG/IPRATROPIUM 0.5 MG NEB (SCH) NEB ×3 (04:11→20:53)
[2016-07-21] MEDS: KETOROLAC TROMETHAMINE 30 MG/ML (IVP) VIAL IV PUSH SCH ×4 (06:00→18:27)
[2016-07-21] MEDS: PCA - TOTAL MG DILAUDID DELIVERED PER SHIFT OTHER SCH (06:00)
[2016-07-21 06:30] LABS: AUTOMATED NEUTROPHIL # 8.4 TH/MM3 (1.8-7.7); BASOPHIL % 0.3 % (0.0-2.0); EOSINOPHIL % 0.3 % (0.0-4.0); HEMATOCRIT 23.9 % (35.0-46.0); HEMO FLAGS DIFF FINAL; LYMPH % 10.8 % (9.0-44.0); LYMPHOCYTE # 1.1 TH/MM3 (1.0-4.8); MEAN CELL VOLUME 94.1 FL (80.0-100.0); MEAN CORPUSCULAR HEMOGLOBIN 32.5 PG (27.0-34.0); MEAN CORPUSCULAR HGB CONC 34.6 % (32.0-36.0); MONO % 5.2 % (0.0-8.0); NEUT % 83.4 % (16.0-70.0); PLATELET COUNT 139 TH/MM3 (150-450); RED BLOOD COUNT 2.54 MIL/MM3 (4.00-5.30); RED CELL DISTRIBUTION WIDTH 14.4 % (11.6-17.2); WHITE BLOOD COUNT 10.1 TH/MM3 (4.0-11.0)
[2016-07-21 06:56] LABS: BICARBONATE 21.6 MEQ/L (21.0-32.0); CALCIUM-PROTEIN CORRECTED 7.9 MG/DL (8.5-10.1); MAGNESIUM 2.3 MG/DL (1.5-2.5); POTASSIUM 3.4 MEQ/L (3.5-5.1); TOTAL BILIRUBIN ADULT 0.3 MG/DL (0.2-1.0)
[2016-07-21] MEDS: LACTATED RINGER'S 1000 ML INJ 1,000 ML IV SCH (07:22)
[2016-07-21] MEDS: SODIUM CHLORIDE 0.9% FLUSH 5 ML FLUSH IVF SCH ×2 (08:59→20:42)
[2016-07-21] MEDS ORDERED: PADIMATE (CHAPSTICK) 4.5 GM TUBE TOPICAL PRN (11:00)
--- NOTE | 2016-07-21 11:52 | HHI.PR ---
Subjective Subjective Notes She been stable overnight. Received one unit rbcs yesterday and bp is improved. Abdomen sore but pain is controlled. Objective Vitals/I&O Vital Signs Date Time Temp Pulse Resp B/P Pulse Ox O2 Delivery O2 Flow Rate FiO2 07/21/16 10:06 97 2.00 07/21/16 10:00 83 07/21/16 08:00 98.0 20 97/57 07/21/16 07:00 Nasal Cannula Labs Laboratory Tests Test 07/20/16 07/20/16 07/20/16 07/21/16 14:54 15:38 16:10 05:55 White Blood Count 8.4 10.1 Red Blood Count 2.34 2.54 Hemoglobin 7.5 8.3 Hematocrit 21.9 23.9 Mean Corpuscular Volume 93.5 94.1 Mean Corpuscular Hemoglobin 31.9 32.5 Mean Corpuscular Hemoglobin 34.1 34.6 Concent Red Cell Distribution Width 14.8 14.4 Platelet Count 152 139 Mean Platelet Volume 8.1 8.4 Neutrophils (%) (Auto) 82.7 83.4 Lymphocytes (%) (Auto) 12.0 10.8 Monocytes (%) (Auto) 5.0 5.2 Eosinophils (%) (Auto) 0.1 0.3 Basophils (%) (Auto) 0.2 0.3 Neutrophils # (Auto) 7.0 8.4 Lymphocytes # (Auto) 1.0 1.1 Monocytes # (Auto) 0.4 0.5 Eosinophils # (Auto) 0.0 0.0 Basophils # (Auto) 0.0 0.0 CBC Comment DIFF FINAL DIFF FINAL Differential Comment Blood Type O POSITIVE O POSITIVE Antibody Screen NEGATIVE Crossmatch Leukocyte-Reduced Red Blood Cells Blood Bank Comment Sodium Level 141 Potassium Level 3.4 Chloride Level 111 Carbon Dioxide Level 21.6 Anion Gap 8 Blood Urea Nitrogen 18 Creatinine 0.85 Estimat Glomerular Filtration 65 Rate Random Glucose 105 Calcium Level 6.8 Protein Corrected Calcium 7.9 Phosphorus Level 1.7 Magnesium Level 2.3 Total Bilirubin 0.3 Aspartate Amino Transf 35 (AST/SGOT) Alanine Aminotransferase 25 (ALT/SGPT) Alkaline Phosphatase 99 Total Protein 4.9 Albumin 1.9 Date/Time Procedure Status Source Growth 07/19/16 12:10 Gram Stain - Final Complete Wound Abdomen 07/19/16 12:10 Wound Culture - Final Complete Wound Abdomen 07/19/16 12:05 Aerobic Blood Culture - Preliminary Resulted Blood Peripheral NO GROWTH IN 2 DAYS 07/19/16 12:05 Anaerobic Blood Culture - Preliminary Resulted Blood Peripheral NO GROWTH IN 2 DAYS Radiology Last Impressions Abdomen/Pelvis CT 07/19/16 1122 Signed Impressions: Service Date/Time: July 13:26 - CONCLUSION: 1. Large ventral hernia containing small and large bowel. Several small bowel loops appear incarcerated with some fecalization of small bowel contents and dilatation characteristic of at least a partial small bowel obstruction. Martín Anaya MD Narrative Exam NAD, awake and alert CV: RRR Lungs: nonlabored breathing, 2L NC O2 Abd: bandage changed. Incision without erythema or purulent drainage. soft. NG to LIS min output Ext: bandages in place A/P Assessment and Plan 75 yo F POD 2 s/p reduction and repair incarcerated recurrent ventral hernia with ileocecectomy Appreciate critical care assistance. BP improved. Cont levaquin/flagyl. Labs in am. Change to D51/2 ns with kcl. d/c ngt. sips of clears. Wound care nurse caring for LE wounds DVT proph: scds. Christelle. RodríguezRaffi MD Jul 21, 2016 11:52
[2016-07-21] MEDS: D5-1/2 NS + KCL 40 MEQ INJ 1,000 ML IV SCH (13:09)
--- NOTE | 2016-07-21 14:25 | EKG ---
Date Performed: 07/20/2016 Time Performed: 17:34:36 PTAGE: 75 years EKG: Sinus rhythm . NM interval .16 Within normal limits Compared to the PREVIOUS TRACING , criteria no longer met for LVH PREVIOUS TRACIN04/24/2016 17.02 DOCTOR: Jose Enrique Ley Interpretating Date/Time 07/21/2016 14:24:20
[2016-07-21] MEDS: LEVOFLOXACIN 750 MG PREMIX INJ 150 ML IV SCH (17:37)
--- NOTE | 2016-07-21 18:27 | HHI.CCPN ---
Subjective Remarks/Hospital Course 75 y/o woman s/p laparotomy and resection of ischemic terminal ileum and cecum found incarcerated in a complex ventral hernia. I have seen her directly on her arrival to the [facility] postop. NG tube in place with good proximal decompression. She is lethargic but protects her airway well. Urine is concentrated, limbs are well perfused. Subjective 07/22: Episode of SVT yesterday with resolved with adenosine. Resting in bed currently asymptomatic. 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 No bowel movement. 2 [place] drain removed by Dr. Arreguin today. Objective Vital Signs Date Time Temp Pulse Resp B/P Pulse Ox O2 Delivery O2 Flow Rate FiO2 07/21/16 16:00 79 07/21/16 15:00 98.0 18 100/50 99 07/21/16 10:06 2.00 07/21/16 07:00 Nasal Cannula Intake and Output 07/20/16 07/20/16 07/21/16 08:00 16:00 00:00 Intake Total 4171 ml 1101 ml 1481 ml Output Total 750 ml 235 ml 325 ml Balance 3421 ml 866 ml 1156 ml Result Diagram: 07/21/16 0555 07/21/16 0555 Other Results Microbiology Date/Time Procedure Status Source Growth 07/19/16 12:10 Gram Stain - Final Complete Wound Abdomen 07/19/16 12:10 Wound Culture - Final Complete Wound Abdomen 07/19/16 12:05 Aerobic Blood Culture - Preliminary Resulted Blood Peripheral NO GROWTH IN 2 DAYS 07/19/16 12:05 Anaerobic Blood Culture - Preliminary Resulted Blood Peripheral NO GROWTH IN 2 DAYS Imaging Last Impressions Abdomen/Pelvis CT 07/19/16 1122 Signed Impressions: Service Date/Time: July 13:26 - CONCLUSION: 1. Large ventral hernia containing small and large bowel. Several small bowel loops appear incarcerated with some fecalization of small bowel contents and dilatation characteristic of at least a partial small bowel obstruction. Martín Anaya MD Objective Remarks GENERAL: SKIN: Warm and dry. HEAD: Atraumatic. Normocephalic. EYES: Pupils equal and round. No scleral icterus. No injection or drainage. ENT: No nasal bleeding or discharge. Mucous membranes pink and moist. NECK: Trachea midline. No JVD. CARDIOVASCULAR: Regular rate and rhythm. RESPIRATORY: No accessory muscle use. Clear to auscultation. Breath sounds equal bilaterally. GASTROINTESTINAL: Abdomen soft, non-tender, nondistended. Hepatic and splenic margins not palpable. MUSCULOSKELETAL: Extremities without clubbing, cyanosis, or edema. No obvious deformities. NEUROLOGICAL: Awake and alert. No obvious cranial nerve deficits. Motor grossly within normal limits. Five out of 5 muscle strength in the arms and legs. Normal speech. PSYCHIATRIC: Appropriate mood and affect; insight and judgment normal. A/P Assessment and Plan Neuro/Psych: Currently on Toradol 15 mg IV every 6 hours for pain management Dilaudid SECURITY SOFTWARE ENGINEER discontinued Acetaminophen for fever CV: History of hypertension PA A. fib by history SVT Received adenosine 12 mg IV yesterday secondary to PA A. fib. Currently normal sinus rhythm Currently on D5 1 half normal saline with 40 mEq KCl 100 cc an hour per surgery Hemodynamically stable. Off norepinephrine 36 hours. 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 Arreguin NG tube is been removed. Advance diet per Dr. Arreguin. Protonix for GI prophylaxis : Martin has been placed for accurate I's and O's in a critically ill patient Endo: Sliding-scale insulin if indicated to maintain euglycemia Renal: Creatinine currently within normal limits. Monitor closely Heme: Normocytic anemia Thrombocytopenia Transfuse 1 unit PRBCs yesterday. Remains stable ID: Levaquin/Flagyl per general surgery day #2 Blood cultures 2 to date/wound culture negative FEN: Hypokalemia Hypo phosphatemia Will give sodium phosphate 15 mmol 1.. Recheck in a.m. Potassium added IV fluids Musculoskeletal Chronic lower extremity edema/dry skin Wound care evaluate and treat. Currently leaving open to air Currently holding Lasix 40 mg by mouth daily Critical Care: The total care time was 45 minutes. Time to perform other separately billable procedures was not included in the critical care time. Michael Gilliland MD Jul 21, 2016 18:27
[2016-07-21] MEDS ORDERED: ACETAMINOPHEN 500 MG CPLT PO PRN (18:30)
[2016-07-21] MEDS: ENOXAPARIN SODIUM 40 MG/0.4 ML SYRINGE SQ SCH (20:41)
[2016-07-22] VITALS (11 sets, daily range): BP systolic 105–130; BP diastolic 40–57; PULSE 82–89; RESP 17–24; TEMP 96–98.5; O2SAT 3–97
[2016-07-22] MEDS: D5-1/2 NS + KCL 40 MEQ INJ 1,000 ML IV SCH ×3 (00:08→17:50)
[2016-07-22] MEDS: PANTOPRAZOLE SODIUM 40 MG VIAL IV SCH (00:08)
[2016-07-22] MEDS: KETOROLAC TROMETHAMINE 30 MG/ML (IVP) VIAL IV PUSH SCH ×4 (00:08→17:46)
[2016-07-22] MEDS: RESP: ALBUTEROL 2.5 MG/IPRATROPIUM 0.5 MG NEB (SCH) NEB ×4 (04:26→21:00)
[2016-07-22] MEDS: metroNIDAZOLE 500 MG INJ 100 ML IV SCH ×3 (04:30→17:13)
[2016-07-22 04:46] LABS: AUTOMATED NEUTROPHIL # 7.9 TH/MM3 (1.8-7.7); BASOPHIL % 0.4 % (0.0-2.0); EOSINOPHIL # 0.3 TH/MM3 (0-0.4); EOSINOPHIL % 2.7 % (0.0-4.0); HEMATOCRIT 25.8 % (35.0-46.0); HEMO FLAGS DIFF FINAL; LYMPH % 14.2 % (9.0-44.0); LYMPHOCYTE # 1.4 TH/MM3 (1.0-4.8); MEAN CELL VOLUME 94.7 FL (80.0-100.0); MEAN CORPUSCULAR HEMOGLOBIN 32.5 PG (27.0-34.0); MEAN CORPUSCULAR HGB CONC 34.3 % (32.0-36.0); MONO % 4.2 % (0.0-8.0); NEUT % 78.5 % (16.0-70.0); PLATELET COUNT 175 TH/MM3 (150-450); RED BLOOD COUNT 2.73 MIL/MM3 (4.00-5.30); RED CELL DISTRIBUTION WIDTH 14.6 % (11.6-17.2); WHITE BLOOD COUNT 10.1 TH/MM3 (4.0-11.0)
[2016-07-22 04:59] LABS: BICARBONATE 20.4 MEQ/L (21.0-32.0); POTASSIUM 3.8 MEQ/L (3.5-5.1)
--- NOTE | 2016-07-22 08:07 | HHI.CCPN ---
Subjective Remarks/Hospital Course 75 y/o woman s/p laparotomy and resection of ischemic terminal ileum and cecum found incarcerated in a complex ventral hernia. I have seen her directly on her arrival to the [facility] postop. NG tube in place with good proximal decompression. She is lethargic but protects her airway well. Urine is concentrated, limbs are well perfused. Subjective 07/21: Episode of SVT yesterday with resolved with adenosine. Resting in bed currently asymptomatic. 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 No bowel movement. 2 [place] drain removed by Dr. Arreguin today. 07/22 no evidence overnight, patient is comfortable tolerating ice chips Objective Vital Signs Date Time Temp Pulse Resp B/P Pulse Ox O2 Delivery O2 Flow Rate FiO2 07/22/16 07:00 96 Nasal Cannula 2.00 07/22/16 06:00 83 07/22/16 05:30 21 07/22/16 04:00 98.5 120/57 Intake and Output 07/21/16 07/21/16 07/22/16 08:00 16:00 00:00 Intake Total 686 ml 658 ml 1004 ml Output Total 200 ml 220 ml 150 ml Balance 486 ml 438 ml 854 ml Result Diagram: 07/22/16 0318 07/22/16 0318 Other Results Microbiology Date/Time Procedure Status Source Growth 07/19/16 12:10 Gram Stain - Final Complete Wound Abdomen 07/19/16 12:10 Wound Culture - Final Complete Wound Abdomen Imaging Last Impressions Abdomen/Pelvis CT 07/19/16 1122 Signed Impressions: Service Date/Time: July 13:26 - CONCLUSION: 1. Large ventral hernia containing small and large bowel. Several small bowel loops appear incarcerated with some fecalization of small bowel contents and dilatation characteristic of at least a partial small bowel obstruction. Martín Anaya MD Objective Remarks GENERAL: SKIN: Warm and dry. HEAD: Atraumatic. Normocephalic. EYES: Pupils equal and round. No scleral icterus. No injection or drainage. ENT: No nasal bleeding or discharge. Mucous membranes pink and moist. NECK: Trachea midline. No JVD. CARDIOVASCULAR: Regular rate and rhythm. RESPIRATORY: No accessory muscle use. Clear to auscultation. Breath sounds equal bilaterally. GASTROINTESTINAL: Abdomen soft, non-tender, nondistended. Hepatic and splenic margins not palpable. MUSCULOSKELETAL: Extremities without clubbing, cyanosis, or edema. No obvious deformities. NEUROLOGICAL: Awake and alert. No obvious cranial nerve deficits. Motor grossly within normal limits. Five out of 5 muscle strength in the arms and legs. Normal speech. PSYCHIATRIC: Appropriate mood and affect; insight and judgment normal. A/P Assessment and Plan Neuro/Psych: Continue Toradol 15 mg IV every 6 hours as needed for pain management off Dilaudid CUTTING MACHINE OPERATOR Acetaminophen for fever CV: History of hypertension JOHN rey by history SVT Received adenosine 12 mg IV yesterday secondary to JOHN rey July 21. Currently normal sinus rhythm Currently on D5 1 half normal saline with 40 mEq KCl 100 cc an hour per surgery Hemodynamically stable. Off norepinephrine 36 hours. 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 Arreguin NG tube is been removed. Advance diet per Dr. Arreguin. Protonix for GI prophylaxis : Martin has been placed for accurate I's and O's in a critically ill patient Endo: Sliding-scale insulin if indicated to maintain euglycemia Renal: Creatinine currently within normal limits. Monitor closely Heme: Normocytic anemia Thrombocytopenia Transfuse 1 unit PRBCs July 20. Remains stable ID: Levaquin/Flagyl per general surgery day #3 Blood cultures 2 to date/wound culture negative FEN: Hypokalemia Hypo phosphatemia Electrolyte replacement protocol per ICU Musculoskeletal Chronic lower extremity edema/dry skin Wound care evaluate and treat. Currently leaving open to air Currently holding Lasix 40 mg by mouth daily Patient has been hemodynamically stable not on pressors, critical care medicine will sign off. Please reconsult us if needed. Thank you very much for allowing us to participate in care of this pleasant lady. Gold Sheffield MD Jul 22, 2016 08:07
[2016-07-22] MEDS: MORPHINE SULFATE 4 MG/ML INJ IV PRN (08:53)
[2016-07-22] MEDS: SODIUM CHLORIDE 0.9% FLUSH 5 ML FLUSH IVF SCH ×2 (08:53→20:34)
[2016-07-22] MEDS ORDERED: SODIUM CHLORID 0.9% 500 ML INJ 500 ML IV ONE ×2 (09:00→12:15)
--- NOTE | 2016-07-22 12:25 | HHI.PR ---
Subjective Subjective Notes UOP a little low. Otherwise doing well. No nausea. Had some pain this am received morphine which helped. Objective Vitals/I&O Vital Signs Date Time Temp Pulse Resp B/P Pulse Ox O2 Delivery O2 Flow Rate FiO2 07/22/16 11:46 97.9 82 17 105/40 95 07/22/16 10:55 Nasal Cannula 3.00 Labs Laboratory Tests Test 07/22/16 03:18 White Blood Count 10.1 Red Blood Count 2.73 Hemoglobin 8.9 Hematocrit 25.8 Mean Corpuscular Volume 94.7 Mean Corpuscular Hemoglobin 32.5 Mean Corpuscular Hemoglobin 34.3 Concent Red Cell Distribution Width 14.6 Platelet Count 175 Mean Platelet Volume 9.0 Neutrophils (%) (Auto) 78.5 Lymphocytes (%) (Auto) 14.2 Monocytes (%) (Auto) 4.2 Eosinophils (%) (Auto) 2.7 Basophils (%) (Auto) 0.4 Neutrophils # (Auto) 7.9 Lymphocytes # (Auto) 1.4 Monocytes # (Auto) 0.4 Eosinophils # (Auto) 0.3 Basophils # (Auto) 0.0 CBC Comment DIFF FINAL Differential Comment Sodium Level 144 Potassium Level 3.8 Chloride Level 113 Carbon Dioxide Level 20.4 Anion Gap 11 Blood Urea Nitrogen 18 Creatinine 0.81 Estimat Glomerular Filtration 69 Rate Random Glucose 102 Calcium Level 7.6 Date/Time Procedure Status Source Growth 07/19/16 12:10 Gram Stain - Final Complete Wound Abdomen 07/19/16 12:10 Wound Culture - Final Complete Wound Abdomen 07/19/16 12:05 Aerobic Blood Culture - Preliminary Resulted Blood Peripheral NO GROWTH IN 3 DAYS 07/19/16 12:05 Anaerobic Blood Culture - Preliminary Resulted Blood Peripheral NO GROWTH IN 3 DAYS Radiology Last Impressions Abdomen/Pelvis CT 07/19/16 1122 Signed Impressions: Service Date/Time: July 13:26 - CONCLUSION: 1. Large ventral hernia containing small and large bowel. Several small bowel loops appear incarcerated with some fecalization of small bowel contents and dilatation characteristic of at least a partial small bowel obstruction. Martín Anaya MD Narrative Exam NAD, awake and alert Lungs: nonlabored breathing, 2L NC O2 Abd: bandage changed. Incision without erythema or purulent drainage. soft. Ext: bandages in place A/P Assessment and Plan 75 yo F POD 3 s/p reduction and repair incarcerated recurrent ventral hernia with ileocecectomy Cont levaquin/flagyl. Bolus NS for low uop. Start 20mg lasix daily. Fulls. Percocet/toradol/prn morphine OOB. Consult pt. Wound care nurse caring for LE wounds DVT proph: scds. Christelle. Raffi Arreguin MD Jul 22, 2016 12:25
[2016-07-22] MEDS: FUROSEMIDE 20 MG TAB PO SCH (12:43)
[2016-07-22] MEDS: oxyCODONE/ACETAMINOPHEN 5 MG/325 MG TAB PO PRN (17:13)
[2016-07-22] MEDS: LEVOFLOXACIN 750 MG PREMIX INJ 150 ML IV SCH (17:46)
[2016-07-22] MEDS: ONDANSETRON HCL 4 MG/2 ML VIAL IV PUSH PRN (20:33)
[2016-07-22] MEDS: ENOXAPARIN SODIUM 40 MG/0.4 ML SYRINGE SQ SCH (20:33)
[2016-07-23] VITALS (9 sets, daily range): BP systolic 100–149; BP diastolic 48–66; PULSE 74–85; RESP 17–19; TEMP 95.6–98.5; O2SAT 93–97
[2016-07-23] MEDS: KETOROLAC TROMETHAMINE 30 MG/ML (IVP) VIAL IV PUSH SCH ×4 (00:42→17:03)
[2016-07-23] MEDS: PANTOPRAZOLE SODIUM 40 MG VIAL IV SCH ×2 (00:42→23:00)
[2016-07-23] MEDS: metroNIDAZOLE 500 MG INJ 100 ML IV SCH ×3 (00:46→17:03)
[2016-07-23] MEDS: D5-1/2 NS + KCL 40 MEQ INJ 1,000 ML IV SCH (04:02)
[2016-07-23] MEDS: RESP: ALBUTEROL 2.5 MG/IPRATROPIUM 0.5 MG NEB (SCH) NEB ×4 (04:50→22:00)
[2016-07-23 05:11] LABS: AUTOMATED NEUTROPHIL # 7.1 TH/MM3 (1.8-7.7); BASOPHIL % 0.2 % (0.0-2.0); EOSINOPHIL # 0.4 TH/MM3 (0-0.4); EOSINOPHIL % 4.4 % (0.0-4.0); HEMATOCRIT 25.5 % (35.0-46.0); HEMO FLAGS DIFF FINAL; LYMPH % 12.5 % (9.0-44.0); LYMPHOCYTE # 1.1 TH/MM3 (1.0-4.8); MEAN CELL VOLUME 94.5 FL (80.0-100.0); MEAN CORPUSCULAR HEMOGLOBIN 32.4 PG (27.0-34.0); MEAN CORPUSCULAR HGB CONC 34.3 % (32.0-36.0); MONO % 5.3 % (0.0-8.0); NEUT % 77.6 % (16.0-70.0); PLATELET COUNT 189 TH/MM3 (150-450); RED CELL DISTRIBUTION WIDTH 14.7 % (11.6-17.2); WHITE BLOOD COUNT 9.2 TH/MM3 (4.0-11.0)
[2016-07-23 05:31] LABS: BICARBONATE 20.9 MEQ/L (21.0-32.0); CALCIUM-PROTEIN CORRECTED 8.3 MG/DL (8.5-10.1); POTASSIUM 4.4 MEQ/L (3.5-5.1); TOTAL BILIRUBIN ADULT 0.3 MG/DL (0.2-1.0)
[2016-07-23] MEDS: FUROSEMIDE 20 MG TAB PO SCH (08:49)
[2016-07-23] MEDS: ONDANSETRON HCL 4 MG/2 ML VIAL IV PUSH PRN ×3 (08:49→17:02)
[2016-07-23] MEDS: SODIUM CHLORIDE 0.9% FLUSH 5 ML FLUSH IVF SCH ×2 (08:50→20:32)
--- NOTE | 2016-07-23 11:37 | HHI.PR ---
Subjective Subjective Notes Continues to do well overall. She is congested. Had nausea this am. Objective Vitals/I&O Vital Signs Date Time Temp Pulse Resp B/P Pulse Ox O2 Delivery O2 Flow Rate FiO2 07/23/16 10:45 96 Nasal Cannula 21 07/23/16 08:00 96.1 85 17 144/65 07/22/16 21:00 2.00 Labs Laboratory Tests Test 07/23/16 04:18 White Blood Count 9.2 Red Blood Count 2.70 Hemoglobin 8.7 Hematocrit 25.5 Mean Corpuscular Volume 94.5 Mean Corpuscular Hemoglobin 32.4 Mean Corpuscular Hemoglobin 34.3 Concent Red Cell Distribution Width 14.7 Platelet Count 189 Mean Platelet Volume 8.0 Neutrophils (%) (Auto) 77.6 Lymphocytes (%) (Auto) 12.5 Monocytes (%) (Auto) 5.3 Eosinophils (%) (Auto) 4.4 Basophils (%) (Auto) 0.2 Neutrophils # (Auto) 7.1 Lymphocytes # (Auto) 1.1 Monocytes # (Auto) 0.5 Eosinophils # (Auto) 0.4 Basophils # (Auto) 0.0 CBC Comment DIFF FINAL Differential Comment Sodium Level 141 Potassium Level 4.4 Chloride Level 113 Carbon Dioxide Level 20.9 Anion Gap 7 Blood Urea Nitrogen 15 Creatinine 0.94 Estimat Glomerular Filtration 58 Rate Random Glucose 98 Calcium Level 7.3 Protein Corrected Calcium 8.3 Phosphorus Level 1.6 Magnesium Level 2.0 Total Bilirubin 0.3 Aspartate Amino Transf 17 (AST/SGOT) Alanine Aminotransferase 19 (ALT/SGPT) Alkaline Phosphatase 64 Total Protein 5.2 Albumin 1.8 Date/Time Procedure Status Source Growth 07/19/16 12:10 Gram Stain - Final Complete Wound Abdomen 07/19/16 12:10 Wound Culture - Final Complete Wound Abdomen 07/19/16 12:05 Aerobic Blood Culture - Preliminary Resulted Blood Peripheral NO GROWTH IN 4 DAYS 07/19/16 12:05 Anaerobic Blood Culture - Preliminary Resulted Blood Peripheral NO GROWTH IN 4 DAYS Radiology Last Impressions Abdomen/Pelvis CT 07/19/16 1122 Signed Impressions: Service Date/Time: July 13:26 - CONCLUSION: 1. Large ventral hernia containing small and large bowel. Several small bowel loops appear incarcerated with some fecalization of small bowel contents and dilatation characteristic of at least a partial small bowel obstruction. Martín Anaya MD Narrative Exam NAD, awake and alert Lungs: off oxygen Abd: soft, inc clean and dry, open in a few areas purposefully for drainage Ext: dry scaly skin, no erythema A/P Assessment and Plan 75 yo F POD 4 s/p reduction and repair incarcerated recurrent ventral hernia with ileocecectomy Cont levaquin/flagyl. Fulls. Percocet/toradol/prn morphine OOB. Consult pt. Wound care nurse caring for LE wounds DVT proph: scds. Christelle. Rodríguez,Raffi HILTON Jul 23, 2016 11:37
--- NOTE | 2016-07-23 11:58 | MH ---
cc: JOSE ENRIQUE HANNON MD DATE OF ADMISSION: 07/19/2016 CHIEF COMPLAINT Acute abdominal pain. HISTORY OF PRESENT ILLNESS Itzel Mccabe is a 75-year-old female. She came into the emergency room with abdominal pain. She is found to have swelling and distension of her abdomen and some erythema around her umbilicus. She was emergently seen by Dr. Arreguin and underwent laparotomy and resection of ischemic terminal ileum and cecum due to incarcerated ventral hernia. She did well with the surgery and came out with an NG tube. She had episode of supraventricular tachycardia and was given adenosine. She had two [place] drains that were subsequently removed. I was subsequently consulted for medical management as she is a patient of mine on the outside. PAST MEDICAL HISTORY 1. Atrial fibrillation. 2. Hypertension. 3. Diabetes. 4. Anemia. 5. Thrombocytopenia. 6. Hypokalemia. 7. Chronic lower extremity edema. 8. Diabetic ulcers of the ankles. FAMILY HISTORY She reports cardiac disease in her mother and father, unable to say much more. SOCIAL HISTORY No alcohol, tobacco or illicit drug usage. She had been living in and out of hotels with her son and his children. She tells me that she recently moved to [place] and is living in a home there with her son who is still in and out but does care for her. REVIEW OF SYSTEMS Abdominal pain. She has open draining wounds, chronic stasis of her legs with open areas in her legs. Negative 14-point review of systems otherwise. MEDICATIONS Current medications are: 1. Lasix 20 mg daily. 2. Oxycodone p.r.n. 3. Morphine p.r.n. 4. Protonix 40 IV daily. 5. Albuterol neb q.6 hours. 6. Lovenox 40 daily. 7. DuoNeb p.r.n. 8. Levaquin IV daily. 9. Zofran p.r.n. 10. Flagyl IV q.8 hours. LABORATORY DATA Hemoglobin 8.7 today. White count is normal. Creatinine 0.94. Calcium 7.3, phosphorus 1.6. INR 1.1. Urinalysis is culture not indicated. Nasal MRSA is negative. IMAGING STUDIES Abdominal CT shows ventral hernia and small loops of incarcerated bowel. At least partial small bowel obstruction. PHYSICAL EXAMINATION VITAL SIGNS: Temperature 96.1, pulse 85, respirations 18, blood pressure 144/65, pulse 96, respirations 18. PHYSICAL EXAMINATION GENERAL: She is an alert, obese, chronically ill-appearing female. She has a very harsh cough when she tries to talk. HEENT: Oropharynx is clear. CHEST: Slight basilar rhonchi and a harsh cough. No crackles or consolidation. CARDIOVASCULAR: Regular rate and rhythm. ABDOMEN: Soft, slightly tender in all areas, although appropriately tender as she has a large midline wing. Bath are intact. There is some open areas. NEURO: A&O x3. No apparent distress. Cranial nerves are intact. Strength is 1/5 in all extremities. EXTREMITIES: She has 2+ edema to the mid tibias bilaterally with superficial open areas on her extremities. ASSESSMENT 1. 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 2. Small bowel obstruction due to incarceration. 3. Ileocecostomy. 4. Diabetes. 5. Health care associated pneumonia. 6. Hypertension. 7. Atrial fibrillation. 8. Supraventricular tachycardia status post adenosine, now in sinus rhythm. 9. Normocytic anemia. 10. Thrombocytopenia. 11. Hypokalemia. 12. Hypophosphatemia. 13. Diabetic ulcers of the lower extremities. PLAN 1. Full liquid diet and advancing per general surgery. 2. D5 half-normal with potassium. 3. Levaquin 750 IV daily. 4. Flagyl IV q.8 hours. 5. DuoNebs q.6 hours. 6. Lovenox 40 subcu daily for prophylaxis of DVT. 7. Lasix 20 mg daily p.o. 8. Morphine p.r.n. 9. Zofran p.r.n. 10. Followup blood cultures. 11. Physical therapy evaluation. 12. Consult wound ostomy nurse. DISPOSITION The patient will likely need to go back to [facility] for rehabilitation. Appreciate the consultation. Jose Enrique Hannon MD RP/DONTAE /10:09 AM 10:27 AM
[2016-07-23] MEDS ORDERED: SODIUM PHOSPHATE INJ 30 MMOL in SODIUM CHLOR 0.9% 250 ML INJ 250 ML IV ONE (13:00)
[2016-07-23] MEDS: LEVOFLOXACIN 750 MG PREMIX INJ 150 ML IV SCH (17:04)
[2016-07-23] MEDS: D5-1/2 NS + KCL 20 MEQ INJ 1,000 ML IV SCH (20:31)
[2016-07-23] MEDS: ENOXAPARIN SODIUM 40 MG/0.4 ML SYRINGE SQ SCH (20:32)
[2016-07-24] VITALS (7 sets, daily range): BP systolic 117–136; BP diastolic 57–63; PULSE 73–89; RESP 16–19; TEMP 96.9–98.5; O2SAT 92–96
[2016-07-24] MEDS: ONDANSETRON HCL 4 MG/2 ML VIAL IV PUSH PRN (00:32)
[2016-07-24] MEDS: metroNIDAZOLE 500 MG INJ 100 ML IV SCH ×3 (02:49→16:59)
[2016-07-24] MEDS: RESP: ALBUTEROL 2.5 MG/IPRATROPIUM 0.5 MG NEB (SCH) NEB ×4 (03:27→21:06)
[2016-07-24] MEDS: KETOROLAC TROMETHAMINE 30 MG/ML (IVP) VIAL IV PUSH SCH (03:54)
[2016-07-24] MEDS: D5-1/2 NS + KCL 20 MEQ INJ 1,000 ML IV SCH ×2 (05:00→09:39)
[2016-07-24 05:39] LABS: BASOPHIL % 0.3 % (0.0-2.0); EOSINOPHIL # 0.4 TH/MM3 (0-0.4); EOSINOPHIL % 3.9 % (0.0-4.0); HEMATOCRIT 29.8 % (35.0-46.0); HEMO FLAGS DIFF FINAL; LYMPH % 10.9 % (9.0-44.0); LYMPHOCYTE # 1.1 TH/MM3 (1.0-4.8); MEAN CORPUSCULAR HEMOGLOBIN 31.7 PG (27.0-34.0); MEAN CORPUSCULAR HGB CONC 33.8 % (32.0-36.0); MONO % 5.6 % (0.0-8.0); NEUT % 79.3 % (16.0-70.0); PLATELET COUNT 257 TH/MM3 (150-450); RED BLOOD COUNT 3.17 MIL/MM3 (4.00-5.30); RED CELL DISTRIBUTION WIDTH 14.6 % (11.6-17.2); WHITE BLOOD COUNT 10.1 TH/MM3 (4.0-11.0)
[2016-07-24 06:05] LABS: BICARBONATE 21.3 MEQ/L (21.0-32.0); POTASSIUM 4.1 MEQ/L (3.5-5.1)
[2016-07-24] MEDS: FUROSEMIDE 20 MG TAB PO SCH (09:00)
[2016-07-24] MEDS: SODIUM CHLORIDE 0.9% FLUSH 5 ML FLUSH IVF SCH ×2 (09:00→20:31)
--- NOTE | 2016-07-24 09:33 | HHI.FPPN ---
Subjective Remarks intract vomiting NGT placed c/o ankle pain d/t wounds c/o general pain d/w RN Objective Vitals Vital Signs Date Time Temp Pulse Resp B/P Pulse Ox O2 Delivery O2 Flow Rate FiO2 07/24/16 08:00 96.9 78 19 120/57 93 07/24/16 04:34 98.5 89 18 135/59 92 07/24/16 01:13 98.5 89 18 135/59 92 07/23/16 22:07 93 21 07/23/16 22:00 81 07/23/16 21:55 98.5 83 18 119/48 93 07/23/16 16:00 97.3 83 19 149/66 94 07/23/16 11:56 95.6 79 18 127/58 94 07/23/16 10:45 96 Nasal Cannula 21 I/O 07/23/16 07/23/16 07/23/16 07/24/16 07/24/16 07/24/16 07:00 15:00 23:00 07:00 15:00 23:00 Intake Total 1050 ml 250 ml 1028 ml Output Total 450 ml 800 ml 1000 ml 1425 ml Balance 600 ml -550 ml -1000 ml -397 ml Intake Oral 240 ml 250 ml IV Total 810 ml 1028 ml Output Urine Total 450 ml 800 ml 1000 ml 1000 ml Gastric Drainage Total 425 ml # Bowel Movements 0 Result Diagram: 07/24/1644707/24/16447 Objective Remarks GENERAL: SKIN: Warm and dry. Large open wounds b legs/ankles HEAD: Atraumatic. Normocephalic. EYES: Pupils equal and round. No scleral icterus. No injection or drainage. ENT: No nasal bleeding or discharge. Mucous membranes pink and moist. NGT DRAINING NECK: Trachea midline. No JVD. CARDIOVASCULAR: Regular rate and rhythm. RESPIRATORY: No accessory muscle use. Clear to auscultation. Breath sounds equal bilaterally. GASTROINTESTINAL: Abdomen soft, non-tender, nondistended. Hepatic and splenic margins not palpable. INC CDI, RM INTACT, BINDER IN PLACE MUSCULOSKELETAL: Extremities without clubbing, cyanosis, or edema. No obvious deformities. NEUROLOGICAL: Awake and alert. No obvious cranial nerve deficits. Motor grossly within normal limits. Five out of 5 muscle strength in the arms and legs. Normal speech. PSYCHIATRIC: Appropriate mood and affect; insight and judgment normal. Medications and IVs Current Medications Medications (Trade) Dose Ordered Sig/Cassie Route Start Time Stop Time Status Last Admin (NS Flush) 2 ml UNSCH PRN IVF 07/19/16 22:00 07/22/16 13:27 (NS Flush) 2 ml BID IVF 07/20/16 09:00 07/23/16 20:32 Enoxaparin Sodium 40 mg 40 mg Q24H SQ 07/20/16 20:45 07/23/16 20:32 Levofloxacin/ Dextrose 150 ml @ 100 mls/hr Q24H IV 07/20/16 18:00 07/23/16 17:04 (Flagyl 500 Mg Inj) 100 ml @ 100 mls/hr Q8H IV 07/20/16 02:00 07/24/16 02:49 (Protonix Inj) 40 mg Q24H IV 07/21/16 00:00 07/23/16 23:00 (Zofran Inj) 4 mg Q4H PRN IV PUSH 07/20/16 17:15 07/24/16 00:32 (Chapstick) 1 applic UNSCH PRN TOPICAL 07/21/16 11:00 (Tylenol) 500 mg Q4H PRN PO 07/21/16 18:30 (Morphine Inj) 2 mg Q2H PRN IV 07/22/16 08:00 07/22/16 08:53 (Lasix) 20 mg DAILY PO 07/22/16 13:00 07/23/16 08:49 Oxycodone/ Acetaminophen 1 tab 1 tab Q4H PRN PO 07/22/16 12:15 07/22/16 17:13 (D5-1/2 NS + KCl 20 Meq Inj) 1,000 ml @ 100 mls/hr Q10H IV 07/23/16 19:00 07/23/16 20:31 A/P Assessment and Plan 1. 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 2. Small bowel obstruction due to incarceration. 3. Ileocecostomy. 4. Diabetes. 5. Health care associated pneumonia. 6. Hypertension. 7. Atrial fibrillation. 8. Supraventricular tachycardia status post adenosine, now in sinus rhythm. 9. Normocytic anemia. 10. Thrombocytopenia. 11. Hypokalemia. 12. Hypophosphatemia. 13. Diabetic ulcers of the lower extremities. PLAN 1. NGT, Full liquid diet, advancing per general surgery. 2. D5 half-normal with potassium. 3. Levaquin 750 IV daily. 4. Flagyl IV q.8 hours. 5. DuoNebs q.6 hours. 6. Lovenox 40 subcu daily for prophylaxis of DVT. 7. Lasix 20 mg daily p.o. 8. Morphine p.r.n. 9. Zofran p.r.n. 10. Followup blood cultures. 11. Physical therapy evaluation. 12. Consult wound ostomy nurse. DISPOSITION The patient will likely need to go back to [facility] for rehabilitation. Jose Enrique Roberson MD Jul 24, 2016 09:33
[2016-07-24] MEDS ORDERED: DEXTROSE 50% IN WATER 50 ML VIAL(D50) IV PUSH PRN (09:45)
[2016-07-24] MEDS ORDERED: GLUCAGON 1 MG/ML VIAL OTHER PRN (09:45)
[2016-07-24] MEDS: INSULIN ASPART SUPPLEMENTAL SCALE SQ SCH ×3 (11:00→20:29)
[2016-07-24] MEDS: MORPHINE SULFATE 4 MG/ML INJ IV PRN (13:42)
--- NOTE | 2016-07-24 15:09 | HHI.PR ---
Subjective Subjective Notes She had ngt placed yesterday. She is feeling better now. Has not been out of bed. No other complaints. Objective Vitals/I&O Vital Signs Date Time Temp Pulse Resp B/P Pulse Ox O2 Delivery O2 Flow Rate FiO2 07/24/16 12:00 97.9 79 18 136/63 95 07/23/16 22:07 21 07/23/16 10:45 Nasal Cannula 07/22/16 21:00 2.00 Labs Laboratory Tests Test 07/24/16 04:48 White Blood Count 10.1 Red Blood Count 3.17 Hemoglobin 10.0 Hematocrit 29.8 Mean Corpuscular Volume 94.0 Mean Corpuscular Hemoglobin 31.7 Mean Corpuscular Hemoglobin 33.8 Concent Red Cell Distribution Width 14.6 Platelet Count 257 Mean Platelet Volume 7.7 Neutrophils (%) (Auto) 79.3 Lymphocytes (%) (Auto) 10.9 Monocytes (%) (Auto) 5.6 Eosinophils (%) (Auto) 3.9 Basophils (%) (Auto) 0.3 Neutrophils # (Auto) 8.0 Lymphocytes # (Auto) 1.1 Monocytes # (Auto) 0.6 Eosinophils # (Auto) 0.4 Basophils # (Auto) 0.0 CBC Comment DIFF FINAL Differential Comment Sodium Level 140 Potassium Level 4.1 Chloride Level 110 Carbon Dioxide Level 21.3 Anion Gap 9 Blood Urea Nitrogen 10 Creatinine 1.00 Estimat Glomerular Filtration 54 Rate Random Glucose 116 Calcium Level 7.6 B-Type Natriuretic Peptide 467 Radiology Last Impressions Abdomen/Pelvis CT 07/19/16 1122 Signed Impressions: Service Date/Time: July 13:26 - CONCLUSION: 1. Large ventral hernia containing small and large bowel. Several small bowel loops appear incarcerated with some fecalization of small bowel contents and dilatation characteristic of at least a partial small bowel obstruction. Martín Anaya MD Narrative Exam NAD, awake and alert Abd: soft, inc clean and dry, open in a few areas purposefully for drainage, ng in place 1L output since placement Ext: dry scaly skin, no erythema A/P Assessment and Plan 75 yo F POD 5 s/p reduction and repair incarcerated recurrent ventral hernia with ileocecectomy Cont levaquin/flagyl. NPO/NGT Percocet/toradol/prn morphine OOB. Wound care nurse caring for LE wounds DVT proph: scds. Christelle. Raffi Arreguin MD Jul 24, 2016 15:09
[2016-07-24] MEDS: LEVOFLOXACIN 750 MG PREMIX INJ 150 ML IV SCH (16:59)
[2016-07-24 17:03] LABS: HEMOGLOBIN A1a 0.9 %; HEMOGLOBIN A1b 1.5 %; HEMOGLOBIN Ao 86.5 %; HEMOGLOBIN P3 4.8 %
[2016-07-24] MEDS: ENOXAPARIN SODIUM 40 MG/0.4 ML SYRINGE SQ SCH (20:30)
[2016-07-24] MEDS: PANTOPRAZOLE SODIUM 40 MG VIAL IV SCH (23:50)
[2016-07-25] VITALS (10 sets, daily range): BP systolic 128–188; BP diastolic 61–75; PULSE 70–91; RESP 16–18; TEMP 95.7–98.6; O2SAT 94–98
[2016-07-25] MEDS: metroNIDAZOLE 500 MG INJ 100 ML IV SCH ×3 (01:25→18:04)
[2016-07-25] MEDS: ONDANSETRON HCL 4 MG/2 ML VIAL IV PUSH PRN ×2 (04:45→20:51)
[2016-07-25] MEDS: MORPHINE SULFATE 4 MG/ML INJ IV PRN (04:46)
[2016-07-25 05:10] LABS: AUTOMATED NEUTROPHIL # 6.1 TH/MM3 (1.8-7.7); BASOPHIL % 0.4 % (0.0-2.0); EOSINOPHIL # 0.5 TH/MM3 (0-0.4); EOSINOPHIL % 5.1 % (0.0-4.0); HEMATOCRIT 27.8 % (35.0-46.0); HEMO FLAGS DIFF FINAL; LYMPH % 18.7 % (9.0-44.0); LYMPHOCYTE # 1.7 TH/MM3 (1.0-4.8); MEAN CELL VOLUME 93.3 FL (80.0-100.0); MEAN CORPUSCULAR HEMOGLOBIN 32.6 PG (27.0-34.0); MEAN CORPUSCULAR HGB CONC 34.9 % (32.0-36.0); MONO % 7.7 % (0.0-8.0); NEUT % 68.1 % (16.0-70.0); PLATELET COUNT 278 TH/MM3 (150-450); RED BLOOD COUNT 2.98 MIL/MM3 (4.00-5.30); RED CELL DISTRIBUTION WIDTH 14.5 % (11.6-17.2)
[2016-07-25 05:38] LABS: BICARBONATE 23.4 MEQ/L (21.0-32.0); POTASSIUM 4.2 MEQ/L (3.5-5.1)
[2016-07-25] MEDS: INSULIN ASPART SUPPLEMENTAL SCALE SQ SCH ×4 (07:00→20:56)
[2016-07-25] MEDS: FUROSEMIDE 20 MG TAB PO SCH (08:53)
[2016-07-25] MEDS: SODIUM CHLORIDE 0.9% FLUSH 5 ML FLUSH IVF SCH ×2 (08:58→20:51)
[2016-07-25] MEDS: D5-1/2 NS + KCL 20 MEQ INJ 1,000 ML IV SCH (10:52)
--- NOTE | 2016-07-25 11:22 | HHI.FPPN ---
Subjective Remarks C/O NGT DISCOMFORT C/O GENL MALAISE D/W RN Objective Vitals Vital Signs Date Time Temp Pulse Resp B/P Pulse Ox O2 Delivery O2 Flow Rate FiO2 07/25/16 07:57 97.1 75 16 145/65 95 07/25/16 07:35 95 07/25/16 06:37 133/65 07/25/16 04:00 98.2 82 18 188/74 94 07/25/16 00:00 97.6 91 18 128/61 98 07/24/16 20:00 73 07/24/16 20:00 96.9 76 16 134/63 95 07/24/16 19:04 96 21 07/24/16 16:00 97.0 76 19 117/58 94 07/24/16 12:00 97.9 79 18 136/63 95 I/O 07/24/16 07/24/16 07/24/16 07/25/16 07/25/16 07/25/16 07:00 15:00 23:00 07:00 15:00 23:00 Intake Total 1028 ml 0 ml 1036 ml Output Total 1425 ml 850 ml 200 ml Balance -397 ml -850 ml 836 ml Intake Oral 0 ml IV Total 1028 ml 1036 ml Output Urine Total 1000 ml 850 ml Gastric Drainage Total 425 ml 200 ml # Bowel Movements 0 Result Diagram: 07/25/16 0400 07/25/16 0400 Objective Remarks GENERAL: SKIN: Warm and dry. Large open wounds b legs/ankles HEAD: Atraumatic. Normocephalic. EYES: Pupils equal and round. No scleral icterus. No injection or drainage. ENT: No nasal bleeding or discharge. Mucous membranes pink and moist. NGT DRAINING NECK: Trachea midline. No JVD. CARDIOVASCULAR: Regular rate and rhythm. RESPIRATORY: No accessory muscle use. Clear to auscultation. Breath sounds equal bilaterally. GASTROINTESTINAL: Abdomen soft, non-tender, nondistended. Hepatic and splenic margins not palpable. INC CDI, RM INTACT, BINDER IN PLACE MUSCULOSKELETAL: Extremities without clubbing, cyanosis, or edema. No obvious deformities. NEUROLOGICAL: Awake and alert. No obvious cranial nerve deficits. Motor grossly within normal limits. Five out of 5 muscle strength in the arms and legs. Normal speech. PSYCHIATRIC: Appropriate mood and affect; insight and judgment normal. Medications and IVs Current Medications Medications (Trade) Dose Ordered Sig/Cassie Route Start Time Stop Time Status Last Admin (NS Flush) 2 ml UNSCH PRN IVF 07/19/16 22:00 07/22/16 13:27 (NS Flush) 2 ml BID IVF 07/20/16 09:00 07/24/16 20:31 Enoxaparin Sodium 40 mg 40 mg Q24H SQ 07/20/16 20:45 07/24/16 20:30 Levofloxacin/ Dextrose 150 ml @ 100 mls/hr Q24H IV 07/20/16 18:00 07/24/16 16:59 (Flagyl 500 Mg Inj) 100 ml @ 100 mls/hr Q8H IV 07/20/16 02:00 07/25/16 08:58 (Protonix Inj) 40 mg Q24H IV 07/21/16 00:00 07/24/16 23:50 (Zofran Inj) 4 mg Q4H PRN IV PUSH 07/20/16 17:15 07/25/16 04:45 (Chapstick) 1 applic UNSCH PRN TOPICAL 07/21/16 11:00 (Tylenol) 500 mg Q4H PRN PO 07/21/16 18:30 (Morphine Inj) 2 mg Q2H PRN IV 07/22/16 08:00 07/25/16 04:46 (Lasix) 20 mg DAILY PO 07/22/16 13:00 07/25/16 08:53 Oxycodone/ Acetaminophen 1 tab 1 tab Q4H PRN PO 07/22/16 12:15 07/22/16 17:13 (D5-1/2 NS + KCl 20 Meq Inj) 1,000 ml @ 50 mls/hr Q20H IV 07/23/16 19:00 07/24/16 09:39 (D50w (Vial) Inj) 25 ml UNSCH PRN IV PUSH 07/24/16 09:45 (Glucagon Inj) 1 mg UNSCH PRN OTHER 07/24/16 09:45 A/P Assessment and Plan 1. 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 2. Small bowel obstruction due to incarceration. 3. Ileocecostomy. 4. Diabetes. 5. Health care associated pneumonia. 6. Hypertension. 7. Atrial fibrillation. 8. Supraventricular tachycardia status post adenosine, now in sinus rhythm. 9. Normocytic anemia. 10. Thrombocytopenia. 11. Hypokalemia. 12. Hypophosphatemia. 13. Diabetic ulcers of the lower extremities. PLAN 1. NGT, Full liquid diet, advancing per general surgery. 2. D5 half-normal with potassium. 3. Levaquin 750 IV daily. 4. Flagyl IV q.8 hours. 5. DuoNebs q.6 hours. 6. Lovenox 40 subcu daily for prophylaxis of DVT. 7. Lasix 20 mg daily p.o. 8. Morphine p.r.n. 9. Zofran p.r.n. 10. Followup blood cultures. 11. Physical therapy evaluation. 12. Consult wound ostomy nurse. DISPOSITION The patient will likely need to go back to [facility] for rehabilitation. Jose Enrique Roberson MD Jul 25, 2016 11:22
--- NOTE | 2016-07-25 12:17 | HHI.PR ---
Subjective Subjective Notes Slow progress. She is passing flatus. Pain controlled. Up in chair this am. Objective Vitals/I&O Vital Signs Date Time Temp Pulse Resp B/P Pulse Ox O2 Delivery O2 Flow Rate FiO2 07/25/16 07:57 97.1 75 16 145/65 95 07/24/16 19:04 21 07/23/16 10:45 Nasal Cannula 07/22/16 21:00 2.00 Labs Laboratory Tests Test 07/25/16 04:00 White Blood Count 9.0 Red Blood Count 2.98 Hemoglobin 9.7 Hematocrit 27.8 Mean Corpuscular Volume 93.3 Mean Corpuscular Hemoglobin 32.6 Mean Corpuscular Hemoglobin 34.9 Concent Red Cell Distribution Width 14.5 Platelet Count 278 Mean Platelet Volume 7.4 Neutrophils (%) (Auto) 68.1 Lymphocytes (%) (Auto) 18.7 Monocytes (%) (Auto) 7.7 Eosinophils (%) (Auto) 5.1 Basophils (%) (Auto) 0.4 Neutrophils # (Auto) 6.1 Lymphocytes # (Auto) 1.7 Monocytes # (Auto) 0.7 Eosinophils # (Auto) 0.5 Basophils # (Auto) 0.0 CBC Comment DIFF FINAL Differential Comment Sodium Level 142 Potassium Level 4.2 Chloride Level 110 Carbon Dioxide Level 23.4 Anion Gap 9 Blood Urea Nitrogen 7 Creatinine 0.83 Estimat Glomerular Filtration 67 Rate Random Glucose 86 Calcium Level 7.7 Radiology Last Impressions Abdomen/Pelvis CT 07/19/16 1122 Signed Impressions: Service Date/Time: July 13:26 - CONCLUSION: 1. Large ventral hernia containing small and large bowel. Several small bowel loops appear incarcerated with some fecalization of small bowel contents and dilatation characteristic of at least a partial small bowel obstruction. Martín Anaya MD Narrative Exam NAD, awake and alert Abd: soft, inc clean and dry, open in a few areas purposefully for drainage, ng in place 200cc out overnight A/P Assessment and Plan 75 yo F POD 6 s/p reduction and repair incarcerated recurrent ventral hernia with ileocecectomy Cont levaquin/flagyl. dc teixeira Clamp ng and remove if low residuals. Clears. Percocet/toradol/prn morphine OOB. Wound care nurse caring for LE wounds DVT proph: scds. Lovenox. Rodríguez,Raffi HILTON Jul 25, 2016 12:17
[2016-07-25] MEDS: LEVOFLOXACIN 750 MG PREMIX INJ 150 ML IV SCH (18:07)
[2016-07-25] MEDS: ENOXAPARIN SODIUM 40 MG/0.4 ML SYRINGE SQ SCH (20:51)
[2016-07-25] MEDS: oxyCODONE/ACETAMINOPHEN 5 MG/325 MG TAB PO PRN (22:09)
[2016-07-26] VITALS (7 sets, daily range): BP systolic 136–153; BP diastolic 65–67; PULSE 72–75; RESP 16–18; TEMP 96.3–97.9; O2SAT 94–98
[2016-07-26] MEDS: PANTOPRAZOLE SODIUM 40 MG VIAL IV SCH ×2 (00:33→23:10)
[2016-07-26] MEDS: D5-1/2 NS + KCL 20 MEQ INJ 1,000 ML IV SCH (00:34)
[2016-07-26] MEDS: metroNIDAZOLE 500 MG INJ 100 ML IV SCH ×2 (01:31→09:10)
[2016-07-26] MEDS: ONDANSETRON HCL 4 MG/2 ML VIAL IV PUSH PRN ×2 (01:31→17:28)
[2016-07-26 05:37] LABS: AUTOMATED NEUTROPHIL # 5.7 TH/MM3 (1.8-7.7); BASOPHIL # 0.1 TH/MM3 (0-0.2); BASOPHIL % 0.6 % (0.0-2.0); EOSINOPHIL # 0.6 TH/MM3 (0-0.4); EOSINOPHIL % 6.9 % (0.0-4.0); HEMATOCRIT 27.8 % (35.0-46.0); HEMO FLAGS DIFF FINAL; LYMPH % 20.1 % (9.0-44.0); LYMPHOCYTE # 1.8 TH/MM3 (1.0-4.8); MEAN CELL VOLUME 93.1 FL (80.0-100.0); MEAN CORPUSCULAR HEMOGLOBIN 32.1 PG (27.0-34.0); MEAN CORPUSCULAR HGB CONC 34.5 % (32.0-36.0); MONO % 9.5 % (0.0-8.0); NEUT % 62.9 % (16.0-70.0); PLATELET COUNT 292 TH/MM3 (150-450); RED BLOOD COUNT 2.99 MIL/MM3 (4.00-5.30); RED CELL DISTRIBUTION WIDTH 14.4 % (11.6-17.2); WHITE BLOOD COUNT 9.1 TH/MM3 (4.0-11.0)
[2016-07-26 05:54] LABS: BICARBONATE 25.2 MEQ/L (21.0-32.0); POTASSIUM 3.7 MEQ/L (3.5-5.1)
[2016-07-26] MEDS: INSULIN ASPART SUPPLEMENTAL SCALE SQ SCH ×4 (06:10→21:00)
[2016-07-26] MEDS: SODIUM CHLORIDE 0.9% FLUSH 5 ML FLUSH IVF SCH ×2 (09:00→23:10)
[2016-07-26] MEDS: FUROSEMIDE 20 MG TAB PO SCH (09:10)
--- NOTE | 2016-07-26 10:30 | HHI.PR ---
Subjective Subjective Notes She had a large bowel movt. Mild nausea. She was up in chair yesterday. Objective Vitals/I&O Vital Signs Date Time Temp Pulse Resp B/P Pulse Ox O2 Delivery O2 Flow Rate FiO2 07/26/16 08:00 97.9 72 17 139/66 94 07/25/16 17:12 21 07/23/16 10:45 Nasal Cannula 07/22/16 21:00 2.00 Labs Laboratory Tests Test 07/26/16 04:42 White Blood Count 9.1 Red Blood Count 2.99 Hemoglobin 9.6 Hematocrit 27.8 Mean Corpuscular Volume 93.1 Mean Corpuscular Hemoglobin 32.1 Mean Corpuscular Hemoglobin 34.5 Concent Red Cell Distribution Width 14.4 Platelet Count 292 Mean Platelet Volume 7.1 Neutrophils (%) (Auto) 62.9 Lymphocytes (%) (Auto) 20.1 Monocytes (%) (Auto) 9.5 Eosinophils (%) (Auto) 6.9 Basophils (%) (Auto) 0.6 Neutrophils # (Auto) 5.7 Lymphocytes # (Auto) 1.8 Monocytes # (Auto) 0.9 Eosinophils # (Auto) 0.6 Basophils # (Auto) 0.1 CBC Comment DIFF FINAL Differential Comment Sodium Level 142 Potassium Level 3.7 Chloride Level 108 Carbon Dioxide Level 25.2 Anion Gap 9 Blood Urea Nitrogen 5 Creatinine 0.86 Estimat Glomerular Filtration 65 Rate Random Glucose 91 Calcium Level 7.9 Radiology Last Impressions Abdomen/Pelvis CT 07/19/16 1122 Signed Impressions: Service Date/Time: July 13:26 - CONCLUSION: 1. Large ventral hernia containing small and large bowel. Several small bowel loops appear incarcerated with some fecalization of small bowel contents and dilatation characteristic of at least a partial small bowel obstruction. Martín Anaya MD Narrative Exam NAD, awake and alert Abd: soft, bandage in place A/P Assessment and Plan 75 yo F POD 7 s/p reduction and repair incarcerated recurrent ventral hernia with ileocecectomy Dc levaquin/flagyl. Regular diet. Percocet/toradol/prn morphine OOB. Wound care nurse caring for LE wounds DVT proph: scds. Lovenox. RodríguezRaffi MD Jul 26, 2016 10:30
--- NOTE | 2016-07-26 13:50 | HHI.FPPN ---
Subjective Remarks taking po ngt out d/w rn Objective Vitals Vital Signs Date Time Temp Pulse Resp B/P Pulse Ox O2 Delivery O2 Flow Rate FiO2 07/26/16 12:00 96.3 72 16 141/65 95 07/26/16 08:00 97.9 72 17 139/66 94 07/26/16 04:00 97.7 73 16 151/67 95 07/25/16 23:25 98.6 86 18 156/70 96 07/25/16 20:00 97.3 85 18 168/75 98 07/25/16 20:00 86 07/25/16 17:12 97 21 07/25/16 16:00 95.7 71 16 142/66 97 I/O 07/25/16 07/25/16 07/25/16 07/26/16 07/26/16 07/26/16 07:00 15:00 23:00 07:00 15:00 23:00 Intake Total 1036 ml 120 ml 955 ml 605 ml 772 ml Output Total 200 ml 600 ml 275 ml Balance 836 ml -480 ml 680 ml 605 ml 772 ml Intake Oral 120 ml 120 ml IV Total 1036 ml 955 ml 485 ml 772 ml Output Urine Total 600 ml 275 ml Gastric Drainage Total 200 ml Bladder Scan Volume Amount 1 ml # Voids 5 # Bowel Movements 0 0 Result Diagram: 07/26/1644107/26/16441 Objective Remarks GENERAL: SKIN: Warm and dry. Large open wounds b legs/ankles HEAD: Atraumatic. Normocephalic. EYES: Pupils equal and round. No scleral icterus. No injection or drainage. ENT: No nasal bleeding or discharge. Mucous membranes pink and moist. NGT DRAINING NECK: Trachea midline. No JVD. CARDIOVASCULAR: Regular rate and rhythm. RESPIRATORY: No accessory muscle use. Clear to auscultation. Breath sounds equal bilaterally. GASTROINTESTINAL: Abdomen soft, non-tender, nondistended. Hepatic and splenic margins not palpable. INC CDI, RM INTACT, BINDER IN PLACE MUSCULOSKELETAL: Extremities without clubbing, cyanosis, or edema. No obvious deformities. NEUROLOGICAL: Awake and alert. No obvious cranial nerve deficits. Motor grossly within normal limits. Five out of 5 muscle strength in the arms and legs. Normal speech. PSYCHIATRIC: Appropriate mood and affect; insight and judgment normal. Medications and IVs Current Medications Medications (Trade) Dose Ordered Sig/Cassie Route Start Time Stop Time Status Last Admin (NS Flush) 2 ml UNSCH PRN IVF 07/19/16 22:00 07/22/16 13:27 (NS Flush) 2 ml BID IVF 07/20/16 09:00 07/24/16 20:31 (Lovenox Inj) 40 mg Q24H SQ 07/20/16 20:45 07/25/16 20:51 (Protonix Inj) 40 mg Q24H IV 07/21/16 00:00 07/26/16 00:33 (Zofran Inj) 4 mg Q4H PRN IV PUSH 07/20/16 17:15 07/26/16 01:31 (Chapstick) 1 applic UNSCH PRN TOPICAL 07/21/16 11:00 (Tylenol) 500 mg Q4H PRN PO 07/21/16 18:30 (Lasix) 20 mg DAILY PO 07/22/16 13:00 07/26/16 09:10 (Percocet 5-325 Mg) 1 tab Q4H PRN PO 07/22/16 12:15 07/25/16 22:09 (D50w (Vial) Inj) 25 ml UNSCH PRN IV PUSH 07/24/16 09:45 (Glucagon Inj) 1 mg UNSCH PRN OTHER 07/24/16 09:45 A/P Assessment and Plan 1. 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 2. Small bowel obstruction due to incarceration. 3. Ileocecostomy. 4. Diabetes. 5. Health care associated pneumonia. 6. Hypertension. 7. Atrial fibrillation. 8. Supraventricular tachycardia status post adenosine, now in sinus rhythm. 9. Normocytic anemia. 10. Thrombocytopenia. 11. Hypokalemia. 12. Hypophosphatemia. 13. Diabetic ulcers of the lower extremities. PLAN Diet, advancing per general surgery. OFF IVF DuoNebs q.6 hours. Lovenox 40 subcu daily for prophylaxis of DVT. Lasix 20 mg daily p.o. Morphine p.r.n. Zofran p.r.n. Followup blood cultures. Physical therapy evaluation. Consult wound ostomy nurse. DISPOSITION The patient will likely need to go back to [facility] for rehabilitation. Jose Enrique Roberson MD Jul 26, 2016 13:50 Jose Enrique Roberson MD Jul 26, 2016 13:50
[2016-07-26] MEDS: ENOXAPARIN SODIUM 40 MG/0.4 ML SYRINGE SQ SCH (23:10)
[2016-07-27] VITALS: BP 145/64; PULSE 76; RESP 18; TEMP 97.5; O2SAT 96
[2016-07-27 04:00] VITALS: BP 117/55; PULSE 73; RESP 17; TEMP 97.2; O2SAT 96
[2016-07-27 04:33] LABS: AUTOMATED NEUTROPHIL # 6.3 TH/MM3 (1.8-7.7); BASOPHIL % 0.4 % (0.0-2.0); EOSINOPHIL # 0.6 TH/MM3 (0-0.4); EOSINOPHIL % 6.2 % (0.0-4.0); HEMATOCRIT 28.3 % (35.0-46.0); HEMO FLAGS DIFF FINAL; LYMPH % 23.6 % (9.0-44.0); LYMPHOCYTE # 2.4 TH/MM3 (1.0-4.8); MEAN CELL VOLUME 92.4 FL (80.0-100.0); MEAN CORPUSCULAR HEMOGLOBIN 31.2 PG (27.0-34.0); MEAN CORPUSCULAR HGB CONC 33.7 % (32.0-36.0); MONO % 8.4 % (0.0-8.0); NEUT % 61.4 % (16.0-70.0); PLATELET COUNT 325 TH/MM3 (150-450); RED BLOOD COUNT 3.06 MIL/MM3 (4.00-5.30); RED CELL DISTRIBUTION WIDTH 14.4 % (11.6-17.2); WHITE BLOOD COUNT 10.2 TH/MM3 (4.0-11.0)
[2016-07-27 04:44] LABS: POTASSIUM 3.2 MEQ/L (3.5-5.1)
[2016-07-27] MEDS: ONDANSETRON HCL 4 MG/2 ML VIAL IV PUSH PRN (05:52)
[2016-07-27] MEDS: oxyCODONE/ACETAMINOPHEN 5 MG/325 MG TAB PO PRN (05:52)
[2016-07-27] MEDS: INSULIN ASPART SUPPLEMENTAL SCALE SQ SCH ×2 (05:55→11:00)
[2016-07-27 08:00] VITALS: BP_SYST 120; BP_SYST 124; BP_DIAS 56; BP_DIAS 60; PULSE 86; PULSE 88; RESP 18; TEMP 96.8; TEMP 97.7; O2SAT 95
[2016-07-27 08:05] VITALS: O2SAT 95
[2016-07-27] MEDS: FUROSEMIDE 20 MG TAB PO SCH (09:16)
[2016-07-27] MEDS: SODIUM CHLORIDE 0.9% FLUSH 5 ML FLUSH IVF SCH (09:16)
--- NOTE | 2016-07-27 09:49 | HHI.FPPN ---
Subjective Remarks REQS DC D/W SURGEON Objective Vitals Vital Signs Date Time Temp Pulse Resp B/P Pulse Ox O2 Delivery O2 Flow Rate FiO2 07/27/16 08:05 95 21 07/27/16 04:00 97.2 73 17 117/55 96 07/27/16 00:00 97.5 76 18 145/64 96 07/26/16 20:16 75 07/26/16 20:00 96.6 75 18 153/67 96 07/26/16 16:00 97.8 74 17 136/66 98 07/26/16 12:00 96.3 72 16 141/65 95 07/26/16 10:08 94 21 I/O 07/26/16 07/26/16 07/26/16 07/27/16 07/27/16 07/27/16 07:00 15:00 23:00 07:00 15:00 23:00 Intake Total 605 ml 1012 ml 240 ml 240 ml Output Total 300 ml Balance 605 ml 1012 ml -60 ml 240 ml Intake Oral 120 ml 240 ml 240 ml 240 ml IV Total 485 ml 772 ml 0 ml Output Urine Total 300 ml # Voids 5 7 2 3 # Bowel Movements 0 4 1 1 Result Diagram: 07/27/16 0349 07/27/16348 Objective Remarks GENERAL: SKIN: Warm and dry. Large open wounds b legs/ankles HEAD: Atraumatic. Normocephalic. EYES: Pupils equal and round. No scleral icterus. No injection or drainage. ENT: No nasal bleeding or discharge. Mucous membranes pink and moist. NGT DRAINING NECK: Trachea midline. No JVD. CARDIOVASCULAR: Regular rate and rhythm. RESPIRATORY: No accessory muscle use. Clear to auscultation. Breath sounds equal bilaterally. GASTROINTESTINAL: Abdomen soft, non-tender, nondistended. Hepatic and splenic margins not palpable. INC CDI, RM INTACT, BINDER IN PLACE MUSCULOSKELETAL: Extremities without clubbing, cyanosis, or edema. No obvious deformities. NEUROLOGICAL: Awake and alert. No obvious cranial nerve deficits. Motor grossly within normal limits. Five out of 5 muscle strength in the arms and legs. Normal speech. PSYCHIATRIC: Appropriate mood and affect; insight and judgment normal. Medications and IVs Current Medications Medications (Trade) Dose Ordered Sig/Cassie Route Start Time Stop Time Status Last Admin (NS Flush) 2 ml UNSCH PRN IVF 07/19/16 22:00 07/22/16 13:27 (NS Flush) 2 ml BID IVF 07/20/16 09:00 07/27/16 09:16 (Lovenox Inj) 40 mg Q24H SQ 07/20/16 20:45 07/26/16 23:10 (Protonix Inj) 40 mg Q24H IV 07/21/16 00:00 07/26/16 23:10 (Zofran Inj) 4 mg Q4H PRN IV PUSH 07/20/16 17:15 07/27/16 05:52 (Chapstick) 1 applic UNSCH PRN TOPICAL 07/21/16 11:00 (Tylenol) 500 mg Q4H PRN PO 07/21/16 18:30 (Lasix) 20 mg DAILY PO 07/22/16 13:00 07/27/16 09:16 (Percocet 5-325 Mg) 1 tab Q4H PRN PO 07/22/16 12:15 07/27/16 05:52 (D50w (Vial) Inj) 25 ml UNSCH PRN IV PUSH 07/24/16 09:45 (Glucagon Inj) 1 mg UNSCH PRN OTHER 07/24/16 09:45 A/P Assessment and Plan 1. 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 2. Small bowel obstruction due to incarceration. 3. Ileocecostomy. 4. Diabetes. 5. Health care associated pneumonia. 6. Hypertension. 7. Atrial fibrillation. 8. Supraventricular tachycardia status post adenosine, now in sinus rhythm. 9. Normocytic anemia. 10. Thrombocytopenia. 11. Hypokalemia. 12. Hypophosphatemia. 13. Diabetic ulcers of the lower extremities. PLAN DC TO SNF OFF IVF DuoNebs q.6 hours. Lovenox 40 subcu daily for prophylaxis of DVT. Lasix 20 mg daily p.o. Morphine p.r.n. Zofran p.r.n. Followup blood cultures. Physical therapy evaluation. Consult wound ostomy nurse. DISPOSITION nursing facility for rehabilitation. Jose Enrique Roberson MD Jul 27, 2016 09:49
[2016-07-27] MEDS ORDERED: OXYC1TAB63 PO (10:20)
--- NOTE | 2016-07-27 11:16 | HHI.DS ---
Discharge Summary Admission Date Jul 19, 2016 at 16:27 Discharge Date: Jul 27, 2016 Admitting Diagnosis incarcerated hernia, sepsis, partial obstruction Procedures Exploratory laparotomy, extensive lysis of adhesions, ileocecectomy, takedown of enterocutaneous fistula Brief History This is a 75-year-old female who has had abdominal pain since yesterday. She has had nausea but no vomiting. The patient is somewhat of a poor historian. She does state that in 1995 she had a ventral hernia repair in that same year she ended up having a cholecystectomy. She says that this past December she had an issue with the recurrent abdominal hernia but that resolved. She has had no problems since then until yesterday. She states that she has had bowel movement and flatus as recently as yesterday. She does have bilateral lower extremity wounds which are wraps at this time. She sees wound care for this. She is on clindamycin currently for the lower extremity wounds. In the emergency department she was noted on exam to have a large non-reducible ventral hernia with drainage from the midportion. Lab's revealed a white blood count of 25,[address] abdomen and pelvis shows an at least partially incarcerated large ventral hernia including small and large bowel. There is feculization of some of the small bowel. CBC/BMP: 07/27/16 0349 07/27/16 0349 Significant Findings Laboratory Tests Test 07/25/16 07/26/16 07/27/16 04:00 04:42 03:49 Red Blood Count 2.98 MIL/MM3 2.99 MIL/MM3 3.06 MIL/MM3 (4.00-5.30) (4.00-5.30) (4.00-5.30) Hemoglobin 9.7 GM/DL 9.6 GM/DL 9.5 GM/DL (11.6-15.3) (11.6-15.3) (11.6-15.3) Hematocrit 27.8 % 27.8 % 28.3 % (35.0-46.0) (35.0-46.0) (35.0-46.0) Eosinophils (%) (Auto) 5.1 % (0.0-4.0) 6.9 % (0.0-4.0) 6.2 % (0.0-4.0) Eosinophils # (Auto) 0.5 TH/MM3 0.6 TH/MM3 0.6 TH/MM3 (0-0.4) (0-0.4) (0-0.4) Chloride Level 110 MEQ/L 108 MEQ/L (98-107) (98-107) Estimat Glomerular Filtration 67 ML/MIN (>89) 65 ML/MIN (>89) 61 ML/MIN (>89) Rate Calcium Level 7.7 MG/DL 7.9 MG/DL 7.8 MG/DL (8.5-10.1) (8.5-10.1) (8.5-10.1) Monocytes (%) (Auto) 9.5 % (0.0-8.0) 8.4 % (0.0-8.0) Blood Urea Nitrogen 5 MG/DL (7-18) 4 MG/DL (7-18) Potassium Level 3.2 MEQ/L (3.5-5.1) PE at Discharge NAD, awake and alert Abd: soft, incision clean with some areas of open wound purposefully for drainage. No erythema or purulence. Hospital Course The patient was taken to surgery on the day of admission for incarcerated ventral hernia and required small bowel and cecal resection. Postoperatively she did well and NG tube was able to be removed, however she developed an ileus and had vomiting and NG tube was replaced. She again was able to have it removed and diet progressed and is tolerating diet well today. She has had multiple bowel movements. The patient's lower extremity wounds have been cared for by wound care team. A couple days after surgery she had a brief episode of SVT which resolved with adenosine. She was in sinus rhythm at the time of discharge. Pt Condition on Discharge: Good Discharge Disposition: Discharge to SNF Discharge Instructions DIET: Follow Instructions for: As Tolerated, No Restrictions Activities you can perform: See Additionl Instruction Other Activity Instructions: Activity as tolerated. Ok to shower. Follow up Referrals: SNF/[facility]/ with [facility] - 10 Days with Raffi Arreguin MD New Medications: Oxycodone-Acetaminophen (Oxycodone-Acetaminophen) 5-325 mg Tab 1 TAB PO Q4H PRN PAIN #20 TAB Continued Medications: Ciprofloxacin (Cipro) 500 Mg Tab 500 MG PO BID Infection Ref 0 TAB Furosemide (Lasix) 40 Mg Tab 40 MG PO DAILY ROGER Days 90 Ref 0 TAB Ondansetron (Zofran) 4 Mg Tab 4 MG PO Q6HR PRN NAUSEA OR VOMITING Ref 0 TAB Raffi Arreguin MD Jul 27, 2016 11:16
[2016-07-27 12:00] VITALS: BP 125/57; PULSE 68; RESP 18; TEMP 96.5; O2SAT 97
== END 2016-07-27 14:20 | DRG 329 ==
LOC: NEPE 10:53 → NEDA 16:27 → HPAC 18:04 → N03A 07-20 00:25 → N07A 07-22 10:47
PROVIDERS: ADMIT Surgery; ATTEND Surgery
PROC: 0DNV0ZZ Release Mesentery, Open Approach (ICD-10-PCS; 2016-07-19)
PROC: 0WQF0ZZ Repair Abdominal Wall, Open Approach (ICD-10-PCS; 2016-07-19)
PROC: 0DBK0ZZ Excision of Ascending Colon, Open Approach (ICD-10-PCS; 2016-07-19)
PROC: 0DTH0ZZ Resection of Cecum, Open Approach (ICD-10-PCS; principal; 2016-07-19 18:19)
DX: K43.0 Incisional hernia with obstruction, without gangrene (principal); J18.9 Pneumonia, unspecified organism; N17.9 Acute kidney failure, unspecified; K55.9 Vascular disorder of intestine, unspecified; E11.622 Type 2 diabetes mellitus with other skin ulcer; K63.2 Fistula of intestine; D69.6 Thrombocytopenia, unspecified; L03.115 Cellulitis of right lower limb; I47.1 Supraventricular tachycardia; Z68.41 Body mass index [BMI] 40.0-44.9, adult; L03.119 Cellulitis of unspecified part of limb; I48.91 Unspecified atrial fibrillation; E86.0 Dehydration; I10 Essential (primary) hypertension; R60.0 Localized edema; E07.9 Disorder of thyroid, unspecified; G43.909 Migraine, unspecified, not intractable, without status migrainosus; D64.9 Anemia, unspecified; E87.6 Hypokalemia; E83.39 Other disorders of phosphorus metabolism; L98.499 Non-pressure chronic ulcer of skin of other sites with unspecified severity; M19.90 Unspecified osteoarthritis, unspecified site; Y95 Nosocomial condition; E66.9 Obesity, unspecified
CPT/HCPCS: 36430; 43753; 74177; 76937; 80048; 80053; 81001; 82805; 82948; 83036; 83605; 83690; 83735; 83880; 84100; 84155; 85025; 85610; 85730; 86403; 86850; 86900; 86901; 86920; 87040; 87070; 87205; 87641; 88307; 93005; 94150; 94640; 94664; 96374; 96375; 96376; C9113; J0131; J0153; J0690; J1170; J1650; J1815; J1885; J1956; J2270; J2370; J2405; J2543; J3010; J3370; J3475; J3480; J7030; J7040; J7050; J7120; P9016; P9047; Q9967

== ENCOUNTER 2016-08-06 23:43 | Inpatient (IN) | payer MEDICARE, OTHER ==
[~2016-08-06] VITALS: Ht 165.1 cm; Wt 77.7 kg
[~2016-08-06 23:43] MED LIST changes: +CIPR-9 PO; -HYDR-3516 PO; -LEVA500T PO; +OXYC1TAB63 PO; -Spironolactone PO; +ZOFR4TAB PO
[2016-08-06 23:45] VITALS: BP 126/64; PULSE 100; RESP 20; TEMP 98.8; O2SAT 94
[2016-08-06 23:50] VITALS: BP 133/63; PULSE 108; PULSE 87; PULSE 94; RESP 19; O2SAT 95
[2016-08-06] MEDS ORDERED: POTA-243 PO (23:58)
[2016-08-07] VITALS (14 sets, daily range): BP systolic 102–137; BP diastolic 55–72; PULSE 60–115; RESP 16–19; TEMP 98.1–98.4; O2SAT 89–99
[2016-08-07] MEDS ORDERED: SODIUM CHLORIDE 0.9% FLUSH 10 ML FLUSH IVF PRN (00:15)
[2016-08-07] MEDS ORDERED: ONDANSETRON HCL 4 MG/2 ML VIAL IV PUSH ONE (00:15)
[2016-08-07 00:25] LABS: AUTOMATED NEUTROPHIL # 6.5 TH/MM3 (1.8-7.7); BASOPHIL # 0.1 TH/MM3 (0-0.2); BASOPHIL % 1.2 % (0.0-2.0); EOSINOPHIL # 0.4 TH/MM3 (0-0.4); EOSINOPHIL % 3.7 % (0.0-4.0); HEMATOCRIT 30.4 % (35.0-46.0); HEMO FLAGS DIFF FINAL; LYMPH % 27.3 % (9.0-44.0); LYMPHOCYTE # 2.9 TH/MM3 (1.0-4.8); MEAN CELL VOLUME 90.8 FL (80.0-100.0); MEAN CORPUSCULAR HGB CONC 34.1 % (32.0-36.0); MONO % 6.8 % (0.0-8.0); PLATELET COUNT 418 TH/MM3 (150-450); RED BLOOD COUNT 3.35 MIL/MM3 (4.00-5.30); RED CELL DISTRIBUTION WIDTH 14.3 % (11.6-17.2); WHITE BLOOD COUNT 10.7 TH/MM3 (4.0-11.0)
[2016-08-07 00:34] LABS: PROTHROMBIN TIME - PATIENT 11.1 SEC (9.8-11.6)
--- NOTE | 2016-08-07 00:53 | PD ---
HPI Chief Complaint: Cardiac Complaint Time Seen by Provider: 00:07 Travel History International Travel<30 days: No Contact w/Intl Traveler<30days: No Traveled to known affect area: No History of Present Illness HPI The 75-year-old female comes in from her rehabilitation facility due to an episode of palpitations. She says she has history of this happening every so often, and it usually resolves with medication. Per EMS she was in SVT they gave her 6 mg of adenosine and she converted to normal sinus rhythm. She says she never had any chest pain or shortness of breath, she just felt palpitations. She is currently in the rehabilitation facility after in abdominal surgery. She denies any issues with the surgical site. She says she is not really having any pain. She does feel some nausea, which she has had on and off since the surgery. She has a chronic wound to her right foot, which is being managed by wound care. She says she thinks it is been getting better. She has not had fever or chills. PFSH Past Medical History Arthritis: Yes Heart Rhythm Problems: Yes (a. fib, SVT) Cancer: No Cardiovascular Problems: Yes Diabetes: Yes Patient Takes Glucophage: No Endocrine: No Gastrointestinal Disorders: Yes Genitourinary: No Hypertension: Yes Immune Disorder: No Implanted Vascular Access Dvce: No Musculoskeletal: Yes (RT ELBOW INJURY) Neurologic: Yes Psychiatric: No Reproductive: No Respiratory: No Migraines: Yes Thyroid Disease: Yes : 3 Para: 2 Miscarriage: 1 Past Surgical History Abdominal Surgery: Yes (CHOLECYSTECTOMY, HERNIA REPAIR) Cholecystectomy: Yes Eye Surgery: Yes Other Surgery: Yes Social History Alcohol Use: No Tobacco Use: No Substance Use: No Allergies-Medications (Allergen,Severity, Reaction): Coded Allergies: No Known Allergies (Unverified , 07/19/16) Reported Meds & Prescriptions Reported Meds & Active Scripts Active Oxycodone-Acetaminophen 5-325 mg Tab 1 Tab PO Q4H PRN Lasix (Furosemide) 40 Mg Tab 40 Mg PO DAILY 90 Days Reported Zinc Sulfate 220 Mg Tab 220 Mg PO DAILY Vitamin C (Ascorbic Acid) 500 Mg Tab 500 Mg PO BID Multiple Vitamin 1 Tab 1 Tab PO DAILY Milk of Magnesia Liq (Magnesium Hydroxide) 400 Mg/5 Ml Susp 30 Ml PO HS PRN Lac-Hydrin (Lactic Acid (Ammonium Lactate)) 12% Lotn 1 Applic TOPICAL BID Apply to entire body every day shift Dulcolax Supp (Bisacodyl) 10 Mg Supp 10 Mg KS IN AM PRN Citroma Liq (Magnesium Citrate) 300 Ml Liq 300 Ml PO IN AM PRN Klor-Con 10 (Potassium Chloride) 10 Meq Tab 10 Meq PO DAILY Zofran (Ondansetron HCl) 4 Mg Tab 4 Mg PO Q4HR PRN Review of Systems Except as stated in HPI: all other systems reviewed are Neg General / Constitutional: No: Fever, Chills HENT: No: Headaches, Lightheadedness Cardiovascular: Positive: Palpitations, No: Chest Pain or Discomfort Respiratory: No: Shortness of Breath Gastrointestinal: Positive: Nausea, No: Vomiting, Abdominal Pain Musculoskeletal: No: Edema, Pain Skin: No Change in Pigmentation Neurologic: No: Weakness, Dizziness Physical Exam Narrative GENERAL: Awake and alert, in no acute distress. SKIN: Focused skin assessment warm/dry. HEAD: Atraumatic. Normocephalic. EYES: Pupils equal and round. No scleral icterus. No injection or drainage. ENT: No nasal bleeding or discharge. Mucous membranes pink and moist. NECK: Trachea midline. No JVD. CARDIOVASCULAR: Regular rate and rhythm. No murmur appreciated. RESPIRATORY: No accessory muscle use. Clear to auscultation. Breath sounds equal bilaterally. GASTROINTESTINAL: Abdomen soft, non-tender, nondistended. Hepatic and splenic margins not palpable. MUSCULOSKELETAL: No obvious deformities. No clubbing. No cyanosis. No edema. NEUROLOGICAL: Awake and alert. No obvious cranial nerve deficits. Motor grossly within normal limits. Normal speech. PSYCHIATRIC: Appropriate mood and affect; insight and judgment normal. Data Data Last Documented VS Vital Signs Date Time Temp Pulse Resp B/P Pulse Ox O2 Delivery O2 Flow Rate FiO2 08/06/16 23:50 87 19 133/63 95 Room Air 08/06/16 23:45 98.8 Orders Ckmb (Isoenzyme) Profile (08/07/16 00:07) Complete Blood Count With Diff (08/07/16 00:07) Comprehensive Metabolic Panel (08/07/16 00:07) Magnesium (Mg) (08/07/16 00:07) Prothrombin Time / Inr (Pt) (08/07/16 00:07) Act Partial Throm Time (Ptt) (08/07/16 00:07) Troponin I (08/07/16 00:07) Chest, Single Ap (08/07/16 00:07) Ecg Monitoring (08/07/16 00:07) Bilateral Bp Monitoring (08/07/16 00:07) Iv Access Insert/Monitor (08/07/16 00:07) Oximetry (08/07/16 00:07) Oxygen Administration (08/07/16 00:07) Sodium Chloride 0.9% Flush (Ns Flush) (08/07/16 00:15) Ondansetron Inj (Zofran Inj) (08/07/16 00:15) Potassium Chloride (Kcl) (08/07/16 01:45) Potassium Chlor 10 Meq Premix (Kcl 10 Me (08/07/16 01:45) Admit Order (Ed Use Only) (08/07/16 ) Labs Laboratory Tests Test 08/07/16 00:12 White Blood Count 10.7 TH/MM3 Red Blood Count 3.35 MIL/MM3 Hemoglobin 10.4 GM/DL Hematocrit 30.4 % Mean Corpuscular Volume 90.8 FL Mean Corpuscular Hemoglobin 31.0 PG Mean Corpuscular Hemoglobin 34.1 % Concent Red Cell Distribution Width 14.3 % Platelet Count 418 TH/MM3 Mean Platelet Volume 7.4 FL Neutrophils (%) (Auto) 61.0 % Lymphocytes (%) (Auto) 27.3 % Monocytes (%) (Auto) 6.8 % Eosinophils (%) (Auto) 3.7 % Basophils (%) (Auto) 1.2 % Neutrophils # (Auto) 6.5 TH/MM3 Lymphocytes # (Auto) 2.9 TH/MM3 Monocytes # (Auto) 0.7 TH/MM3 Eosinophils # (Auto) 0.4 TH/MM3 Basophils # (Auto) 0.1 TH/MM3 CBC Comment DIFF FINAL Differential Comment Prothrombin Time 11.1 SEC Prothromb Time International 1.0 RATIO Ratio Activated Partial 28.0 SEC Thromboplast Time Sodium Level 143 MEQ/L Potassium Level 2.6 MEQ/L Chloride Level 103 MEQ/L Carbon Dioxide Level 28.6 MEQ/L Anion Gap 11 MEQ/L Blood Urea Nitrogen 15 MG/DL Creatinine 1.13 MG/DL Estimat Glomerular Filtration 47 ML/MIN Rate Random Glucose 107 MG/DL Calcium Level 8.0 MG/DL Magnesium Level 1.8 MG/DL Total Bilirubin 0.3 MG/DL Aspartate Amino Transf 13 U/L (AST/SGOT) Alanine Aminotransferase 12 U/L (ALT/SGPT) Alkaline Phosphatase 84 U/L Total Creatine Kinase 32 U/L Troponin I LESS THAN 0.02 NG/ML Total Protein 7.2 GM/DL Albumin 2.7 GM/DL MDM Medical Decision Making Medical Screen Exam Complete: Yes Emergency Medical Condition: Yes Medical Record Reviewed: Yes Interpretation(s) ECG shows normal sinus rhythm, no ST elevation or depression. Differential Diagnosis Electrolyte abnormality versus ACS versus SVT Narrative Course Patient is a 75-year-old female who comes in after an episode of palpitations. She was given adenosine by EMS and her SVT converted to normal sinus rhythm. Currently she has no complaints. IV established, labs sent. Labs concerning for a potassium of 2.6. This was replaced. Patient admitted for further management. Diagnosis Primary Impression: Hypokalemia Admitting Information Admitting Physician Requests: Admit Condition: Stable Lazara Jhaveri MD Aug 07, 2016 00:53
--- NOTE | 2016-08-07 01:12 | RADRPT ---
EXAM DATE/TIME: 08/07/2016 00:07 [facility] COMPARISON: No previous studies available for comparison. INDICATIONS : Chest pain. MEDICAL HISTORY : A-fib. SURGICAL HISTORY : None. ENCOUNTER: Initial ACUITY: 1 day PAIN SCORE: 3/10 LOCATION: Bilateral chest FINDINGS: A single view of the chest demonstrates the lungs to be symmetrically aerated without evidence of mas s, infiltrate or effusion. The cardiomediastinal contours are unremarkable. Osseous structures are intact. CONCLUSION: 1. No active disease. Martín Anaya MD on August 07, 2016 at 1:07 Board Certified Radiologist. This report was verified electronically.
[2016-08-07 01:27] LABS: ALKALINE PHOSPHATASE 84 U/L (45-117); ALT (GPT) 12 U/L (10-53); ANION GAP 11 MEQ/L (5-15); AST (GOT) 13 U/L (15-37); BICARBONATE 28.6 MEQ/L (21.0-32.0); BLOOD UREA NITROGEN 15 MG/DL (7-18); CHLORIDE 103 MEQ/L (98-107); GLOMERULAR FILTRATION RATE 47 ML/MIN (>89); MAGNESIUM 1.8 MG/DL (1.5-2.5); SODIUM (NA) 143 MEQ/L (136-145); TOTAL BILIRUBIN ADULT 0.3 MG/DL (0.2-1.0)
[2016-08-07 01:28] LABS: CREATINE KINASE 32 U/L (26-192)
[2016-08-07 01:31] LABS: POTASSIUM 2.6 MEQ/L (3.5-5.1)
[2016-08-07] MEDS ORDERED: POTASSIUM CHLORIDE 10 MEQ CONTROLLED RELEASE TAB PO ONE (01:45)
[2016-08-07] MEDS ORDERED: POTASSIUM CHLOR 10 MEQ PREMIX 100 ML IV ONE (01:45)
[2016-08-07] MEDS ORDERED: SODIUM CHLORIDE 0.9% FLUSH 10 ML FLUSH IV FLUSH PRN (02:15)
[2016-08-07] MEDS ORDERED: MORPHINE SULFATE 4 MG/ML INJ IV PRN (02:15)
[2016-08-07] MEDS ORDERED: POTASSIUM CHLORIDE 20 MEQ CONTROLLED RELEASE TAB PO ONE ×2 (02:15→09:30)
[2016-08-07] MEDS ORDERED: BISACODYL 10 MG SUPP PR PRN (02:15)
[2016-08-07] MEDS ORDERED: ACETAMINOPHEN 325 MG TAB PO PRN (02:15)
[2016-08-07] MEDS ORDERED: CALCIUM GLUCONATE 10% 1 GM/10 ML VIAL IV PUSH ONE (02:15)
[2016-08-07] MEDS ORDERED: CALCIUM GLUCONATE INJ 1 GM in SODIUM CHLORIDE 0.9% INJ 100 ML IV ONE (02:30)
[2016-08-07] MEDS: SODIUM CHLOR 0.9% 1000 ML INJ 1,000 ML IV SCH ×2 (03:17→11:53)
--- NOTE | 2016-08-07 04:44 | HHI.HP ---
HPI Service [facility] Primary Care Physician Jose Enrique Roberson MD Admission Diagnosis hypokalemia, SVT Diagnoses: (1) SVT (supraventricular tachycardia) Diagnosis: Principal (2) Hypokalemia Diagnosis: Principal (3) NILAM (acute kidney injury) Diagnosis: Principal Travel History International Travel<30 Days: No Contact w/Intl Traveler <30 Da: No Traveled to Known Affected Are: No History of Present Illness This is a 75-year-old male with a PMH of HTN and A. fib who was sent to the ER from Rehab secondary to palpitations. Recent admit 07/19-07/27/16 for Sepsis, Incarcerated Hernia and Partial Obstruction s/p Ex Lap and Ileocecectomy and d/c 'd to Rehab. Today, pt w/ complaints of palpitations. Upon EMS arrival, pt noted to be in SVT w/ HR 180's s/p Adenosine 6mg x1 w/ conversion to NSR. Currently without complaints. Reports previous h/o similar episode in the past. On arrival, BP 126/64, HR 100, O2 sat 94% on RA, Afebrile. CBC at baseline. K+ 2.6, s/p 30mEq replacement, Creatinine 1.13, previously 0.90 on . Trop negative. EKG w/ no acute ischemia. CXR with no acute findings. Review of Systems Except as stated in HPI: all other systems reviewed are Neg ROS: 14 point review of systems otherwise negative. Past Family Social History Past Medical History PMH: HTN and A. fib Past Surgical History PAST SURGICAL HISTORY: Cholecystectomy, Hernia Repair, Eye Surgery Allergies: Coded Allergies: No Known Allergies (Unverified , 07/19/16) Family History PAST FAMILY HISTORY: Reviewed. No h/o DM or CAD Social History PAST SOCIAL HISTORY: Negative for alcohol, tobacco or drugs. Physical Exam Vital Signs Vital Signs Date Time Temp Pulse Resp B/P Pulse Ox O2 Delivery O2 Flow Rate FiO2 08/06/16 23:50 94 19 133/63 95 Room Air 08/06/16 23:45 98.8 100 20 126/64 94 Physical Exam PE: GENERAL: Pleasant elderly male in no acute distress. HEENT: PERRLA, EOMI. No scleral icterus or conjunctival pallor. No lid lag or facial droop. CARDIOVASCULAR: Regular rate and rhythm. No obvious murmurs to auscultation. No chest tenderness to palpation. RESPIRATORY: No obvious rhonchi or wheezing. Clear to auscultation. Breath sounds equal bilaterally. GASTROINTESTINAL: Abdomen soft, non-tender, nondistended. BS normal. MUSCULOSKELETAL: Extremities without clubbing, cyanosis, or edema. No obvious deformities. NEUROLOGICAL: Awake, alert and oriented x4. No focal neurologic deficits. Moving both upper and lower extremities spontaneously. Laboratory Laboratory Tests Test 08/07/16 00:12 White Blood Count 10.7 Red Blood Count 3.35 Hemoglobin 10.4 Hematocrit 30.4 Mean Corpuscular Volume 90.8 Mean Corpuscular Hemoglobin 31.0 Mean Corpuscular Hemoglobin 34.1 Concent Red Cell Distribution Width 14.3 Platelet Count 418 Mean Platelet Volume 7.4 Neutrophils (%) (Auto) 61.0 Lymphocytes (%) (Auto) 27.3 Monocytes (%) (Auto) 6.8 Eosinophils (%) (Auto) 3.7 Basophils (%) (Auto) 1.2 Neutrophils # (Auto) 6.5 Lymphocytes # (Auto) 2.9 Monocytes # (Auto) 0.7 Eosinophils # (Auto) 0.4 Basophils # (Auto) 0.1 CBC Comment DIFF FINAL Differential Comment Prothrombin Time 11.1 Prothromb Time International 1.0 Ratio Activated Partial 28.0 Thromboplast Time Sodium Level 143 Potassium Level 2.6 Chloride Level 103 Carbon Dioxide Level 28.6 Anion Gap 11 Blood Urea Nitrogen 15 Creatinine 1.13 Estimat Glomerular Filtration 47 Rate Random Glucose 107 Calcium Level 8.0 Magnesium Level 1.8 Total Bilirubin 0.3 Aspartate Amino Transf 13 (AST/SGOT) Alanine Aminotransferase 12 (ALT/SGPT) Alkaline Phosphatase 84 Total Creatine Kinase 32 Troponin I LESS THAN 0.02 Total Protein 7.2 Albumin 2.7 Result Diagram: 08/07/161108/07/1611 Assessment and Plan Problem List: (1) SVT (supraventricular tachycardia) ICD Code: I47.1 Status: Acute (2) Hypokalemia ICD Code: E87.6 Status: Acute (3) NILAM (acute kidney injury) ICD Code: N17.9 Status: Acute Assessment and Plan A/P: 1. SVT: acute c/o palpitations, found to be in SVT by EMS w/ HR 180's, s/p Adenosine 6mg x1 w/ conversion to NSR. Per pt, previous episodes of SVT in the past. Remains in NSR, vitals stable. Labs essentially unremarkable except for K+ 2.6. Trop negative, EKG w/ no acute ischemia. CXR negative for acute findings, images reviewed by me 2. Hypokalemia: K+ 2.6, s/p 30mEq in ER, will need additional replacement, recheck K+, replace as needed. 3. NILAM: Creatinine 1.13, previously 0.90 on 07/27/16. IVF for hydration, repeat labs in am. 4. DVT Prophylaxis: SCD/Teds. 5. Social work for d/c planning as needed. 6. Case discussed w/ ER physician at length. Physician Certification 2 Midnight Certification Type: Admission for Inpatient Services Order for Inpatient Services The services are ordered in accordance with Medicare regulations or non- Medicare payer requirements, as applicable. In the case of services not specified as inpatient-only, they are appropriately provided as inpatient services in accordance with the 2-midnight benchmark. Estimated LOS (days): 2 days is the estimated time the patient will need to remain in the hospital, assuming treatment plan goals are met and no additional complications. Post-Hospital Plan: Not yet determined Kalani Huynh MD Aug 07, 2016 04:44
[2016-08-07 06:50] LABS: POTASSIUM 3.2 MEQ/L (3.5-5.1)
--- NOTE | 2016-08-07 08:35 | HHI.PR ---
Subjective Remarks This is a 75-year-old male with a PMH of HTN and A. fib who was sent to the ER from Rehab secondary to palpitations. Recent admit 07/19-07/27/16 for Sepsis, Incarcerated Hernia and Partial Obstruction s/p Ex Lap and Ileocecectomy and d/c'd to Rehab. complaint of palpitations. Upon EMS arrival, pt noted to be in SVT w/ HR 180's s/p Adenosine 6mg x1 w/ conversion to NSR. Currently without complaints. Reports previous h/o similar episode in the past. On arrival, BP 126/64, HR 100, O2 sat 94% on RA, Afebrile. CBC at baseline. K+ 2.6, s/p 30mEq replacement, Creatinine 1.13, previously 0.90 on 07/27/16. Trop negative. EKG w/ no acute ischemia. CXR with no acute findings. Patient admitted today stable in her bedroom, Discussed with Doctor Karol is his patient and wants her for tomorrow. consult placed to life enrichment specialist following Potassium for replacement, given 60 meq more and following. discussed with nurse Miss Perez, asked for C Diff Toxin due to Diarrhea. no Nausea or vomit Objective Vital Signs Date Time Temp Pulse Resp B/P Pulse Ox O2 Delivery O2 Flow Rate FiO2 08/07/16 06:44 68 17 131/62 89 Room Air 08/07/16 06:44 97 Nasal Cannula 2 08/07/16 05:35 70 18 131/62 94 Room Air 08/07/16 04:39 90 18 134/68 95 Room Air 08/06/16 23:50 87 19 133/63 95 Room Air 08/06/16 23:45 98.8 100 20 126/64 94 Result Diagram: 08/07/16 0012 08/07/16 0612 Imaging Last Impressions Chest X-Ray 08/07/16 0007 Signed Impressions: Service Date/Time: Sunday, August 07, 2016 00:07 - CONCLUSION: 1. No active disease. Martín Anaya MD Procedures No procedures performed. Other Results Laboratory Tests Test 08/07/16 08/07/16 00:12 06:12 White Blood Count 10.7 TH/MM3 Red Blood Count 3.35 MIL/MM3 Hemoglobin 10.4 GM/DL Hematocrit 30.4 % Mean Corpuscular Volume 90.8 FL Mean Corpuscular Hemoglobin 31.0 PG Mean Corpuscular Hemoglobin 34.1 % Concent Red Cell Distribution Width 14.3 % Platelet Count 418 TH/MM3 Mean Platelet Volume 7.4 FL Neutrophils (%) (Auto) 61.0 % Lymphocytes (%) (Auto) 27.3 % Monocytes (%) (Auto) 6.8 % Eosinophils (%) (Auto) 3.7 % Basophils (%) (Auto) 1.2 % Neutrophils # (Auto) 6.5 TH/MM3 Lymphocytes # (Auto) 2.9 TH/MM3 Monocytes # (Auto) 0.7 TH/MM3 Eosinophils # (Auto) 0.4 TH/MM3 Basophils # (Auto) 0.1 TH/MM3 CBC Comment DIFF FINAL Differential Comment Prothrombin Time 11.1 SEC Prothromb Time International 1.0 RATIO Ratio Activated Partial 28.0 SEC Thromboplast Time Sodium Level 143 MEQ/L Chloride Level 103 MEQ/L Carbon Dioxide Level 28.6 MEQ/L Anion Gap 11 MEQ/L Blood Urea Nitrogen 15 MG/DL Creatinine 1.13 MG/DL Estimat Glomerular Filtration 47 ML/MIN Rate Random Glucose 107 MG/DL Calcium Level 8.0 MG/DL Total Bilirubin 0.3 MG/DL Aspartate Amino Transf 13 U/L (AST/SGOT) Alanine Aminotransferase 12 U/L (ALT/SGPT) Alkaline Phosphatase 84 U/L Total Creatine Kinase 32 U/L Total Protein 7.2 GM/DL Albumin 2.7 GM/DL Potassium Level 3.2 MEQ/L Magnesium Level 2.0 MG/DL Troponin I 0.03 NG/ML Objective Remarks GENERAL: Pleasant elderly male in no acute distress. HEENT: PERRLA, EOMI. No scleral icterus or conjunctival pallor. No lid lag or facial droop. CARDIOVASCULAR: Regular rate and rhythm. No obvious murmurs to auscultation. No chest tenderness to palpation. RESPIRATORY: No obvious rhonchi or wheezing. Clear to auscultation. Breath sounds equal bilaterally. GASTROINTESTINAL: Abdomen soft, non-tender, nondistended. BS normal. MUSCULOSKELETAL: Extremities without clubbing, cyanosis, or edema. No obvious deformities. NEUROLOGICAL: Awake, alert and oriented x4. No focal neurologic deficits. Moving both upper and lower extremities spontaneously. Medications and IVs Current Medications Medications (Trade) Dose Ordered Sig/Cassie Route Start Time Stop Time Status Last Admin Sodium Chloride 2 ml 2 ml UNSCH PRN IVF 08/07/16 00:15 (NS 1000 ml Inj) 1,000 ml @ 100 mls/hr Q10H IV 08/07/16 02:04 08/07/16 03:17 (NS Flush) 2 ml UNSCH PRN IV FLUSH 08/07/16 02:15 (NS Flush) 2 ml BID IV FLUSH 08/07/16 09:00 (Zofran Inj) 4 mg Q6H PRN IVP 08/07/16 02:15 (Dulcolax Supp) 10 mg DAILY PRN [place] 08/07/16 02:15 (Tylenol) 650 mg Q6H PRN PO 08/07/16 02:15 ([place] 5-325 Mg) 1 tab Q4H PRN PO 08/07/16 02:15 (Morphine Inj) 2 mg Q3H PRN IV 08/07/16 02:15 A/P Assessment and Plan 1. SVT: acute c/o palpitations, found to be in SVT by EMS w/ HR 180's, s/p Adenosine 6mg x1 w/ conversion to NSR. Per pt, previous episodes of SVT in the past. Remains in NSR, vitals stable. Hypokalemia replaced and following. Trop negative, EKG w/ no acute ischemia. CXR negative for acute findings, images reviewed by me 2. Hypokalemia: K+ 2.6, s/p 30mEq in ER, will need additional replacement, recheck K+, replace as needed. 3. NILAM: Creatinine 1.13, previously 0.90 on 07/27/16. IVF for hydration, repeat labs in am. DVT Prophylaxis: SCD/Teds. Social work for d/c planning as needed. change attending for tomorrow for Doctor Roberson. Gautam Schneider MD Aug 07, 2016 08:35
[2016-08-07] MEDS: SODIUM CHLORIDE 0.9% FLUSH 10 ML FLUSH IV FLUSH SCH ×2 (08:55→21:00)
[2016-08-07] MEDS ORDERED: DULC10SU3 PR (11:02)
[2016-08-07] MEDS ORDERED: CITRSOL4 PO (11:02)
[2016-08-07] MEDS ORDERED: VITA500T PO (11:03)
[2016-08-07] MEDS ORDERED: ZINC220T PO (11:03)
[2016-08-07] MEDS ORDERED: MILKSUS PO (11:03)
[2016-08-07] MEDS ORDERED: MULTTAB67 PO (11:03)
[2016-08-07] MEDS ORDERED: LAC-12LO3 TOPICAL (11:03)
[2016-08-07] MEDS ORDERED: ASPIRIN EC 81 MG TABEC PO ONE (19:15)
--- NOTE | 2016-08-07 19:39 | MB ---
cc: CAMRON CRAWFORD M.D. DATE OF CONSULTATION 08/07/16 HISTORY OF PRESENT ILLNESS Itzel is a very pleasant 75-year lady who resides in a [facility]. She was referred for atrial fibrillation, rapid ventricular response. Currently heart rate is controlled. The patient is on aspirin. She is not sure if she has had atrial fibrillation before, but note that she thinks her heart has been out of rhythm and acted up in the past. She apparently had some bleeding issues, but never required a transfusion. This was confirmed by her son at the bedside. Currently she denies chest pain, fevers, chills, cough, GI or bleeding, PND, orthopnea, syncope or dizziness. The emergency room noted that she did have palpitations at the [facility]. She is noted to be in SVT and given adenosine and converted to sinus rhythm. PAST MEDICAL HISTORY 1. Atrial fibrillation 2. Supraventricular tachycardiac 3. Diabetes 4. Hypertension 5. Migraine 6. Cholecystectomy, 7. Hernia repair, 8. Eye surgery. SOCIAL HISTORY Denies tobacco or alcohol use. ALLERGIES None. MEDICATIONS In the hospital 1. Lasix 40 daily, 2. Potassium 10 mEq daily. ALLERGIES None PHYSICAL EXAMINATION Pulse ranging between 63 and 73, blood pressure 102/55, temperature 98.1. GENERAL: She is alert and oriented times three in no acute distress NECK: Supple. No JVD. No bruit CARDIOVASCULAR: S1, S2. No murmurs, rubs or gallops. LUNGS: Clear to auscultation bilaterally ABDOMEN: Soft, nontender, nondistended with positive bowel sounds. EXTREMITIES: No lower extremity edema. LABORATORY DATA White count 10.7, hemoglobin 10.4, hematocrit 30.4, platelet count 418 Sodium 143, potassium 2.6. Chloride 103, bicarb 28.6, BUN 15 creatinine 1.13, troponin is less than 0.02, 0.03 and 0.02. LFTs normal. Magnesium 1.8, albumin 2.7, INR 1.0. IMAGING STUDIES Chest x-ray - No active disease CARDIOLOGY STUDIES EKG shows sinus rhythm at 94 beats per minute, 1/2 mm [address] segment depression leads V4, V5, V6 which is slightly upsloping, LVH. DIAGNOSES 1. Arrhythmia 2. Supraventricular tachycardiac 3. History of atrial fibrillation 4. Hypertension. 5. Hypokalemia 6. Anemia. 7. Hyperglycemia 8. Low albumin. 9. Low oncotic pressure. DISCUSSION The patient states she has a history atrial fibrillation. She had a [id number] bleed in the past that did not require transfusion. She has a CHADS score of 3 due to her hypertension, diabetes and age greater than 70. Therefore, I recommend Coumadin or novel oral anticoagulant drug like Eliquis, Pradaxa, Xarelto. The patient adamantly refuses. She is not on any anticoagulation at this point in time, therefore we will start her on aspirin 81 mg daily which she says she is at the [facility]. Continue telemetry monitoring. MD ALLIE Nieto/ /7:07 PM /7:22 PM
[2016-08-07] MEDS: LACTIC ACID (AMMONIUM LACTATE) 12% LOTION 225 GM BTL TOPICAL SCH (21:00)
[2016-08-08] VITALS (24 sets, daily range): BP systolic 110–141; BP diastolic 53–74; PULSE 59–144; RESP 18–20; TEMP 97.8–98.8; O2SAT 95–97
[2016-08-08] MEDS: SODIUM CHLOR 0.9% 1000 ML INJ 1,000 ML IV SCH ×2 (00:17→08:19)
[2016-08-08 07:01] LABS: ALKALINE PHOSPHATASE 69 U/L (45-117); ALT (GPT) 10 U/L (10-53); ANION GAP 7 MEQ/L (5-15); AST (GOT) 16 U/L (15-37); BICARBONATE 27.9 MEQ/L (21.0-32.0); BLOOD UREA NITROGEN 14 MG/DL (7-18); CHLORIDE 111 MEQ/L (98-107); GLOMERULAR FILTRATION RATE 61 ML/MIN (>89); POTASSIUM 3.9 MEQ/L (3.5-5.1); SODIUM (NA) 146 MEQ/L (136-145); TOTAL BILIRUBIN ADULT 0.1 MG/DL (0.2-1.0)
[2016-08-08 07:02] LABS: AUTOMATED NEUTROPHIL # 4.5 TH/MM3 (1.8-7.7); BASOPHIL % 0.6 % (0.0-2.0); EOSINOPHIL # 0.5 TH/MM3 (0-0.4); EOSINOPHIL % 5.9 % (0.0-4.0); HEMO FLAGS DIFF FINAL; LYMPH % 33.8 % (9.0-44.0); LYMPHOCYTE # 2.9 TH/MM3 (1.0-4.8); MEAN CELL VOLUME 91.6 FL (80.0-100.0); MEAN CORPUSCULAR HGB CONC 33.9 % (32.0-36.0); MONO % 7.2 % (0.0-8.0); NEUT % 52.5 % (16.0-70.0); PLATELET COUNT 331 TH/MM3 (150-450); RED BLOOD COUNT 2.84 MIL/MM3 (4.00-5.30); RED CELL DISTRIBUTION WIDTH 14.5 % (11.6-17.2); WHITE BLOOD COUNT 8.6 TH/MM3 (4.0-11.0)
--- NOTE | 2016-08-08 07:51 | EKG ---
Date Performed: 08/06/2016 Time Performed: 23:50:44 PTAGE: 75 years EKG: Sinus rhythm LEFT VENTRICULAR HYPERTROPHY AND ST-T CHANGE ABNORMAL ECG Compared to PREVIOUS TRACING , there have been pogressive changes consistent with left ventricular hy pertrophy. The lateral ST segment and T-wave changes are increased. PREVIOUS TRACIN07/20/2016 17.3 4 DOCTOR: Pearl Crawford Interpretating Date/Time 08/08/2016 07:49:42
[2016-08-08] MEDS: FUROSEMIDE 40 MG TAB PO SCH (08:18)
[2016-08-08] MEDS: ASPIRIN EC 81 MG TABEC PO SCH (08:18)
[2016-08-08] MEDS: LACTIC ACID (AMMONIUM LACTATE) 12% LOTION 225 GM BTL TOPICAL SCH ×2 (08:19→21:00)
[2016-08-08] MEDS: SODIUM CHLORIDE 0.9% FLUSH 10 ML FLUSH IV FLUSH SCH ×2 (08:19→21:00)
[2016-08-08] MEDS: POTASSIUM CHLORIDE 10 MEQ CONTROLLED RELEASE TAB PO SCH (08:19)
--- NOTE | 2016-08-08 09:45 | PD.CARD.PN ---
Subjective Subjective Remarks asleep in nad Objective Vital Signs / I&O Vital Signs Date Time Temp Pulse Resp B/P Pulse Ox O2 Delivery O2 Flow Rate FiO2 08/08/16 07:00 98.8 70 20 141/74 97 08/08/16 06:00 62 08/08/16 05:00 62 08/08/16 04:00 98.2 60 18 120/53 95 08/08/16 04:00 59 08/08/16 03:00 64 08/08/16 02:00 74 08/08/16 01:00 64 08/08/16 00:00 98.4 83 18 122/63 96 08/08/16 00:00 67 08/07/16 23:00 64 08/07/16 22:00 64 08/07/16 21:00 62 08/07/16 20:00 98.4 65 18 118/57 96 08/07/16 20:00 64 08/07/16 18:08 73 08/07/16 17:24 62 08/07/16 16:30 70 08/07/16 15:16 98.1 64 19 102/55 97 08/07/16 15:00 63 08/07/16 14:00 64 16 137/60 99 Nasal Cannula 2 08/07/16 11:15 60 16 122/72 97 Nasal Cannula 2 Laboratory GENERAL: SKIN: Warm and dry. HEAD: Normocephalic. EYES: No scleral icterus. No injection or drainage. NECK: Supple, trachea midline. No JVD or lymphadenopathy. CARDIOVASCULAR: Regular rate and rhythm without murmurs, gallops, or rubs. RESPIRATORY: Breath sounds equal bilaterally. No accessory muscle use. GASTROINTESTINAL: Abdomen soft, non-tender, nondistended. MUSCULOSKELETAL: No cyanosis, or edema. BACK: Nontender without obvious deformity. No CVA tenderness. Laboratory Tests Test 08/07/16 08/07/16 08/08/16 12:25 17:04 04:56 Troponin I 0.02 NG/ML Potassium Level 3.5 MEQ/L 3.9 MEQ/L White Blood Count 8.6 TH/MM3 Red Blood Count 2.84 MIL/MM3 Hemoglobin 8.8 GM/DL Hematocrit 26.0 % Mean Corpuscular Volume 91.6 FL Mean Corpuscular Hemoglobin 31.0 PG Mean Corpuscular Hemoglobin 33.9 % Concent Red Cell Distribution Width 14.5 % Platelet Count 331 TH/MM3 Mean Platelet Volume 7.9 FL Neutrophils (%) (Auto) 52.5 % Lymphocytes (%) (Auto) 33.8 % Monocytes (%) (Auto) 7.2 % Eosinophils (%) (Auto) 5.9 % Basophils (%) (Auto) 0.6 % Neutrophils # (Auto) 4.5 TH/MM3 Lymphocytes # (Auto) 2.9 TH/MM3 Monocytes # (Auto) 0.6 TH/MM3 Eosinophils # (Auto) 0.5 TH/MM3 Basophils # (Auto) 0.0 TH/MM3 CBC Comment DIFF FINAL Differential Comment Sodium Level 146 MEQ/L Chloride Level 111 MEQ/L Carbon Dioxide Level 27.9 MEQ/L Anion Gap 7 MEQ/L Blood Urea Nitrogen 14 MG/DL Creatinine 0.90 MG/DL Estimat Glomerular Filtration 61 ML/MIN Rate Random Glucose 87 MG/DL Calcium Level 7.8 MG/DL Total Bilirubin 0.1 MG/DL Aspartate Amino Transf 16 U/L (AST/SGOT) Alanine Aminotransferase 10 U/L (ALT/SGPT) Alkaline Phosphatase 69 U/L Total Protein 6.3 GM/DL Albumin 2.2 GM/DL Assessment and Plan Problem List: (1) SVT (supraventricular tachycardia) (2) Afib Assessment and Plan 1.) Svt resolved, patient refuses coumadin or noac, rec continue aspirin 81 mg qd Juma Priest MD Aug 08, 2016 09:45
--- NOTE | 2016-08-08 10:12 | HHI.FPPN ---
Subjective Remarks c/o abd wound pain c/o palps c/o weakness d/w RN Objective Vitals Vital Signs Date Time Temp Pulse Resp B/P Pulse Ox O2 Delivery O2 Flow Rate FiO2 08/08/16 08:00 70 08/08/16 07:00 98.8 70 20 141/74 97 08/08/16 07:00 66 08/08/16 06:00 62 08/08/16 05:00 62 08/08/16 04:00 98.2 60 18 120/53 95 08/08/16 04:00 59 08/08/16 03:00 64 08/08/16 02:00 74 08/08/16 01:00 64 08/08/16 00:00 98.4 83 18 122/63 96 08/08/16 00:00 67 08/07/16 23:00 64 08/07/16 22:00 64 08/07/16 21:00 62 08/07/16 20:00 98.4 65 18 118/57 96 08/07/16 20:00 64 08/07/16 18:08 73 08/07/16 17:24 62 08/07/16 16:30 70 08/07/16 15:16 98.1 64 19 102/55 97 08/07/16 15:00 63 08/07/16 14:00 64 16 137/60 99 Nasal Cannula 2 08/07/16 11:15 60 16 122/72 97 Nasal Cannula 2 Result Diagram: 08/08/16 0456 08/08/16 0456 Objective Remarks GENERAL: SKIN: Warm and dry. abdom wound w exudate and erythema and gtt; HEAD: Atraumatic. Normocephalic. EYES: Pupils equal and round. No scleral icterus. No injection or drainage. ENT: No nasal bleeding or discharge. Mucous membranes pink and moist. NECK: Trachea midline. No JVD. CARDIOVASCULAR: Regular rate and rhythm. RESPIRATORY: No accessory muscle use. Clear to auscultation. Breath sounds equal bilaterally. GASTROINTESTINAL: Abdomen soft, non-tender, nondistended. Hepatic and splenic margins not palpable. MUSCULOSKELETAL: Extremities without clubbing, cyanosis, or edema. No obvious deformities. NEUROLOGICAL: Awake and alert. No obvious cranial nerve deficits. Motor grossly within normal limits. 2 out of 5 muscle strength in the arms and legs. Normal speech. PSYCHIATRIC: Appropriate mood and affect; insight and judgment normal. Medications and IVs Current Medications Medications (Trade) Dose Ordered Sig/Cassie Route Start Time Stop Time Status Last Admin (NS 1000 ml Inj) 1,000 ml @ 100 mls/hr Q10H IV 08/07/16 02:04 08/08/16 08:19 (NS Flush) 2 ml UNSCH PRN IV FLUSH 08/07/16 02:15 (NS Flush) 2 ml BID IV FLUSH 08/07/16 09:00 08/08/16 08:19 (Zofran Inj) 4 mg Q6H PRN IVP 08/07/16 02:15 (Dulcolax Supp) 10 mg DAILY PRN [place] 08/07/16 02:15 (Tylenol) 650 mg Q6H PRN PO 08/07/16 02:15 ([place] 5-325 Mg) 1 tab Q4H PRN PO 08/07/16 02:15 (Morphine Inj) 2 mg Q3H PRN IV 08/07/16 02:15 (Lasix) 40 mg DAILY PO 08/08/16 09:00 08/08/16 08:18 (Lac-Hydrin 12% Lotion) 1 applic BID TOPICAL 08/07/16 21:00 08/08/16 08:19 (KCl) 10 meq DAILY PO 08/08/16 09:00 08/08/16 08:19 (Ecotrin Ec) 81 mg DAILY PO 08/08/16 09:00 08/08/16 08:18 A/P Assessment and Plan Problem List: (1) Bilateral cellulitis of lower leg Status: Acute (2) Psoriasis Status: Acute (3) Sepsis affecting skin Status: Acute (4) Cellulitis of lower extremity Status: Acute (5) Partial small bowel obstruction Status: Acute (6) Small bowel strangulation Status: Acute (7) Incarcerated hernia Status: Acute (8) Enterocutaneous fistula Status: Acute (9) Hypokalemia Status: Acute (10) SVT (supraventricular tachycardia) Status: Acute (11) NILAM (acute kidney injury) Status: Acute (12) Afib Status: Acute Plan: PLAN: ADJUST IVF AM LABS AND MAYBE DC TOMORROW WOUND CONSULT Jose Enrique Roberson MD Aug 08, 2016 10:12
[2016-08-08] MEDS: SODIUM CHLOR 0.45% 1000 ML INJ 1,000 ML IV SCH (11:00)
[2016-08-08] MEDS: DILTIAZEM 125 MG/NS 100 ML IV SCH ×2 (14:53)
[2016-08-09] VITALS (24 sets, daily range): BP systolic 106–158; BP diastolic 49–58; PULSE 61–76; RESP 18–22; TEMP 97.8–99; O2SAT 94–99
[2016-08-09] MEDS: ONDANSETRON HCL 4 MG/2 ML VIAL IVP PRN ×3 (05:31→21:45)
[2016-08-09 07:19] LABS: BICARBONATE 25.1 MEQ/L (21.0-32.0); MAGNESIUM 1.8 MG/DL (1.5-2.5)
[2016-08-09 07:31] LABS: POTASSIUM 4.8 MEQ/L (3.5-5.1)
[2016-08-09 07:34] LABS: AUTOMATED NEUTROPHIL # 10.3 TH/MM3 (1.8-7.7); BASOPHIL # 0.1 TH/MM3 (0-0.2); BASOPHIL % 0.6 % (0.0-2.0); EOSINOPHIL # 0.5 TH/MM3 (0-0.4); EOSINOPHIL % 3.3 % (0.0-4.0); HEMATOCRIT 35.9 % (35.0-46.0); LYMPH % 16.3 % (9.0-44.0); LYMPHOCYTE # 2.2 TH/MM3 (1.0-4.8); MEAN CELL VOLUME 91.3 FL (80.0-100.0); MEAN CORPUSCULAR HEMOGLOBIN 29.9 PG (27.0-34.0); MEAN CORPUSCULAR HGB CONC 32.7 % (32.0-36.0); NEUT % 76.8 % (16.0-70.0); PLATELET COUNT 334 TH/MM3 (150-450); RED BLOOD COUNT 3.93 MIL/MM3 (4.00-5.30); RED CELL DISTRIBUTION WIDTH 14.9 % (11.6-17.2); WHITE BLOOD COUNT 13.5 TH/MM3 (4.0-11.0)
[2016-08-09 07:47] LABS: HEMO FLAGS AUTO DIFF
[2016-08-09 08:27] LABS: PLATELET ESTIMATE SMEAR NORMAL (NORMAL); SCAN/DIFF AUTO DIFF CONFIRMED
[2016-08-09 08:28] LABS: PLATELET MORPHOLOGY ENLARGED (NORMAL)
[2016-08-09] MEDS: SODIUM CHLORIDE 0.9% FLUSH 10 ML FLUSH IV FLUSH SCH ×2 (09:00→21:00)
[2016-08-09] MEDS: LACTIC ACID (AMMONIUM LACTATE) 12% LOTION 225 GM BTL TOPICAL SCH ×2 (09:29→21:51)
[2016-08-09] MEDS: FUROSEMIDE 40 MG TAB PO SCH (09:30)
[2016-08-09] MEDS: ASPIRIN EC 81 MG TABEC PO SCH (09:30)
[2016-08-09] MEDS: POTASSIUM CHLORIDE 10 MEQ CONTROLLED RELEASE TAB PO SCH (09:30)
[2016-08-09 11:27] LABS: C. DIFF EPI 027 PRESUMPTIVE POSITIVE (NEGATIVE); C. DIFF TOXIN PCR POSITIVE (NEGATIVE)
[2016-08-09] MEDS: DILTIAZEM 125 MG/NS 100 ML IV SCH ×2 (12:29)
[2016-08-09] MEDS: VANCOMYCIN 500 MG VIAL (FOR ORAL USE ONLY) PO SCH ×3 (12:50→21:51)
[2016-08-09] MEDS: METRONIDAZOLE 500 MG/100 ML ISONTONIC SOLN IV SCH ×2 (12:50→21:52)
[2016-08-09] MEDS: DILTIAZEM HCL 30 MG TAB PO SCH ×2 (12:51→18:14)
[2016-08-09] MEDS: CHOLESTYRAMINE 4 GM PACKET PO SCH ×2 (14:10→18:14)
[2016-08-09] MEDS: SODIUM CHLOR 0.45% 1000 ML INJ 1,000 ML IV SCH (14:11)
--- NOTE | 2016-08-09 15:07 | PD.CARD.PN ---
Subjective Subjective Remarks alert in nad Objective Vital Signs / I&O Vital Signs Date Time Temp Pulse Resp B/P Pulse Ox O2 Delivery O2 Flow Rate FiO2 08/09/16 14:00 70 08/09/16 13:00 73 08/09/16 12:00 64 08/09/16 11:00 71 08/09/16 11:00 97.8 68 20 123/58 99 08/09/16 10:00 66 08/09/16 09:00 72 08/09/16 08:00 63 08/09/16 07:00 67 08/09/16 07:00 98.4 71 18 158/56 98 08/09/16 06:00 64 08/09/16 05:00 72 08/09/16 04:00 64 08/09/16 03:00 98.8 70 142/52 99 08/09/16 03:00 76 08/09/16 02:00 62 08/09/16 01:00 68 08/09/16 00:00 64 08/08/16 23:00 98.7 69 124/62 97 08/08/16 23:00 69 08/08/16 22:00 68 08/08/16 21:00 68 08/08/16 20:00 70 08/08/16 19:00 67 08/08/16 19:00 98.7 69 124/62 97 08/08/16 18:00 64 08/08/16 17:00 66 08/08/16 16:00 66 I/O 08/08/16 08/08/16 08/08/16 08/09/16 08/09/16 08/09/16 07:00 15:00 23:00 07:00 15:00 23:00 Intake Total 1340 ml 590 ml Balance 1340 ml 590 ml Intake Oral 480 ml 240 ml IV Total 860 ml 350 ml # Voids 2 3 # Bowel Movements 6 Physical Exam GENERAL: SKIN: Warm and dry. HEAD: Normocephalic. EYES: No scleral icterus. No injection or drainage. NECK: Supple, trachea midline. No JVD or lymphadenopathy. CARDIOVASCULAR: Regular rate and rhythm without murmurs, gallops, or rubs. RESPIRATORY: Breath sounds equal bilaterally. No accessory muscle use. GASTROINTESTINAL: Abdomen soft, non-tender, nondistended. MUSCULOSKELETAL: No cyanosis, or edema. BACK: Nontender without obvious deformity. No CVA tenderness. Laboratory Laboratory Tests Test 08/09/16 08/09/16 05:15 09:25 White Blood Count 13.5 TH/MM3 Red Blood Count 3.93 MIL/MM3 Hemoglobin 11.8 GM/DL Hematocrit 35.9 % Mean Corpuscular Volume 91.3 FL Mean Corpuscular Hemoglobin 29.9 PG Mean Corpuscular Hemoglobin 32.7 % Concent Red Cell Distribution Width 14.9 % Platelet Count 334 TH/MM3 Mean Platelet Volume 8.4 FL Neutrophils (%) (Auto) 76.8 % Lymphocytes (%) (Auto) 16.3 % Monocytes (%) (Auto) 3.0 % Eosinophils (%) (Auto) 3.3 % Basophils (%) (Auto) 0.6 % Neutrophils # (Auto) 10.3 TH/MM3 Lymphocytes # (Auto) 2.2 TH/MM3 Monocytes # (Auto) 0.4 TH/MM3 Eosinophils # (Auto) 0.5 TH/MM3 Basophils # (Auto) 0.1 TH/MM3 CBC Comment AUTO DIFF Differential Comment AUTO DIFF CONFIRMED Platelet Estimate NORMAL Platelet Morphology Comment ENLARGED Hematology Comments Sodium Level 145 MEQ/L Potassium Level 4.8 MEQ/L Chloride Level 111 MEQ/L Carbon Dioxide Level 25.1 MEQ/L Anion Gap 9 MEQ/L Blood Urea Nitrogen 13 MG/DL Creatinine 0.88 MG/DL Estimat Glomerular Filtration 63 ML/MIN Rate Random Glucose 87 MG/DL Calcium Level 8.0 MG/DL Magnesium Level 1.8 MG/DL Stool C. difficile Toxin (PCR) POSITIVE Stl C. difficile Toxin PRESUMPTIVE Epiderm 027 POSITIVE Assessment and Plan Problem List: (1) SVT (supraventricular tachycardia) (2) Afib Assessment and Plan 1.) Svt resolved, patient refuses coumadin or noac, rec continue aspirin 81 mg qd, wean iv cardizem, start cardizem 30 po q6hr, d/w patient and nurse Juma Priest MD Aug 09, 2016 15:07
--- NOTE | 2016-08-09 15:31 | HHI.FPPN ---
Subjective Remarks MASSIVE DIARRHEA GOOD UR OUTPUT D/W RN Objective Vitals Vital Signs Date Time Temp Pulse Resp B/P Pulse Ox O2 Delivery O2 Flow Rate FiO2 08/09/16 14:00 70 08/09/16 13:00 73 08/09/16 12:00 64 08/09/16 11:00 71 08/09/16 11:00 97.8 68 20 123/58 99 08/09/16 10:00 66 08/09/16 09:00 72 08/09/16 08:00 63 08/09/16 07:00 67 08/09/16 07:00 98.4 71 18 158/56 98 08/09/16 06:00 64 08/09/16 05:00 72 08/09/16 04:00 64 08/09/16 03:00 98.8 70 142/52 99 08/09/16 03:00 76 08/09/16 02:00 62 08/09/16 01:00 68 08/09/16 00:00 64 08/08/16 23:00 98.7 69 124/62 97 08/08/16 23:00 69 08/08/16 22:00 68 08/08/16 21:00 68 08/08/16 20:00 70 08/08/16 19:00 67 08/08/16 19:00 98.7 69 124/62 97 08/08/16 18:00 64 08/08/16 17:00 66 08/08/16 16:00 66 I/O 08/08/16 08/08/16 08/08/16 08/09/16 08/09/16 08/09/16 07:00 15:00 23:00 07:00 15:00 23:00 Intake Total 1340 ml 590 ml Balance 1340 ml 590 ml Intake Oral 480 ml 240 ml IV Total 860 ml 350 ml # Voids 2 3 # Bowel Movements 6 Result Diagram: 08/09/1651408/09/1615 Objective Remarks GENERAL: SKIN: Warm and dry. abdom wound w exudate and erythema and gtt; HEAD: Atraumatic. Normocephalic. EYES: Pupils equal and round. No scleral icterus. No injection or drainage. ENT: No nasal bleeding or discharge. Mucous membranes pink and moist. NECK: Trachea midline. No JVD. CARDIOVASCULAR: Regular rate and rhythm. RESPIRATORY: No accessory muscle use. Clear to auscultation. Breath sounds equal bilaterally. GASTROINTESTINAL: Abdomen soft, non-tender, nondistended. Hepatic and splenic margins not palpable. MUSCULOSKELETAL: Extremities without clubbing, cyanosis, or edema. No obvious deformities. NEUROLOGICAL: Awake and alert. No obvious cranial nerve deficits. Motor grossly within normal limits. 2 out of 5 muscle strength in the arms and legs. Normal speech. PSYCHIATRIC: Appropriate mood and affect; insight and judgment normal. Medications and IVs Current Medications Medications (Trade) Dose Ordered Sig/Cassie Route Start Time Stop Time Status Last Admin (NS Flush) 2 ml UNSCH PRN IV FLUSH 08/07/16 02:15 (NS Flush) 2 ml BID IV FLUSH 08/07/16 09:00 08/08/16 21:00 (Zofran Inj) 4 mg Q6H PRN IVP 08/07/16 02:15 08/09/16 09:29 (Dulcolax Supp) 10 mg DAILY PRN [place] 08/07/16 02:15 (Tylenol) 650 mg Q6H PRN PO 08/07/16 02:15 ([place] 5-325 Mg) 1 tab Q4H PRN PO 08/07/16 02:15 (Morphine Inj) 2 mg Q3H PRN IV 08/07/16 02:15 (Lasix) 40 mg DAILY PO 08/08/16 09:00 08/09/16 09:30 (Lac-Hydrin 12% Lotion) 1 applic BID TOPICAL 08/07/16 21:00 08/09/16 09:29 (KCl) 10 meq DAILY PO 08/08/16 09:00 08/09/16 09:30 Aspirin 81 mg 81 mg DAILY PO 08/08/16 09:00 08/09/16 09:30 Sodium Chloride 1,000 ml @ 30 mls/hr Q24H IV 08/08/16 10:15 08/09/16 14:11 (Cardizem Inj/NS Inj) 125 ml @ 0 mls/hr TITRATE IV 08/08/16 14:45 08/09/16 12:29 Diltiazem HCl 30 mg 30 mg Q6H PO 08/09/16 13:00 08/09/16 12:51 (Flagyl 500 Mg Inj) 100 ml @ 100 mls/hr Q8H IV 08/09/16 14:00 08/09/16 12:50 (VANCOMYCIN for oral use only) 250 mg QID PO 08/09/16 13:00 08/09/16 12:50 (Questran 4 Gm Pkt) 4 gm TID PO 08/09/16 13:00 08/09/16 14:10 A/P Assessment and Plan Problem List: (1) Bilateral cellulitis of lower leg Status: Acute (2) Psoriasis Status: Acute (3) Sepsis affecting skin Status: Acute (4) Cellulitis of lower extremity Status: Acute (5) Partial small bowel obstruction Status: Acute (6) Small bowel strangulation Status: Acute (7) Incarcerated hernia Status: Acute (8) Enterocutaneous fistula Status: Acute (9) Hypokalemia Status: Acute (10) SVT (supraventricular tachycardia) Status: Acute (11) NILAM (acute kidney injury) Status: Acute (12) Afib Status: Acute Plan: SEPSIS C DIF LEG CELLULITIS SVT PLAN: IVF'S STOP CARDIZEM GTT, TO PO IV ABX FOR C DIF SEPSIS R/O, SEE LABS CX'S AM LABS WOUND CONSULT Jose Enrique Roberson MD Aug 09, 2016 15:31
[2016-08-09] MEDS: ACETAMINOPHEN/HYDROcodone 325 MG/5 MG TAB PO PRN (21:53)
[2016-08-10] VITALS (24 sets, daily range): BP systolic 114–144; BP diastolic 50–57; PULSE 59–76; RESP 14–20; TEMP 97.6–98.8; O2SAT 97–99
[2016-08-10] MEDS: SODIUM CHLOR 0.45% 1000 ML INJ 1,000 ML IV SCH (00:23)
[2016-08-10] MEDS: DILTIAZEM HCL 30 MG TAB PO SCH ×4 (00:23→18:15)
[2016-08-10 05:34] LABS: AUTOMATED NEUTROPHIL # 9.8 TH/MM3 (1.8-7.7); BASOPHIL % 0.2 % (0.0-2.0); EOSINOPHIL # 0.6 TH/MM3 (0-0.4); EOSINOPHIL % 4.8 % (0.0-4.0); HEMATOCRIT 30.8 % (35.0-46.0); HEMO FLAGS DIFF FINAL; LYMPH % 17.5 % (9.0-44.0); LYMPHOCYTE # 2.3 TH/MM3 (1.0-4.8); MEAN CELL VOLUME 90.9 FL (80.0-100.0); MEAN CORPUSCULAR HEMOGLOBIN 30.4 PG (27.0-34.0); MEAN CORPUSCULAR HGB CONC 33.4 % (32.0-36.0); MONO % 3.3 % (0.0-8.0); NEUT % 74.2 % (16.0-70.0); PLATELET COUNT 364 TH/MM3 (150-450); RED BLOOD COUNT 3.39 MIL/MM3 (4.00-5.30); RED CELL DISTRIBUTION WIDTH 14.3 % (11.6-17.2); WHITE BLOOD COUNT 13.2 TH/MM3 (4.0-11.0)
[2016-08-10 05:51] LABS: BICARBONATE 26.4 MEQ/L (21.0-32.0); POTASSIUM 3.6 MEQ/L (3.5-5.1)
[2016-08-10] MEDS: METRONIDAZOLE 500 MG/100 ML ISONTONIC SOLN IV SCH (06:00)
[2016-08-10] MEDS: CHOLESTYRAMINE 4 GM PACKET PO SCH ×3 (08:39→18:15)
[2016-08-10] MEDS: POTASSIUM CHLORIDE 10 MEQ CONTROLLED RELEASE TAB PO SCH (08:40)
[2016-08-10] MEDS: VANCOMYCIN 500 MG VIAL (FOR ORAL USE ONLY) PO SCH ×4 (08:40→21:33)
[2016-08-10] MEDS: LACTIC ACID (AMMONIUM LACTATE) 12% LOTION 225 GM BTL TOPICAL SCH ×2 (08:40→21:00)
[2016-08-10] MEDS: ASPIRIN EC 81 MG TABEC PO SCH (08:40)
[2016-08-10] MEDS: SODIUM CHLORIDE 0.9% FLUSH 10 ML FLUSH IV FLUSH SCH ×2 (08:40→21:00)
--- NOTE | 2016-08-10 11:00 | HHI.FPPN ---
Subjective Remarks wound dehisc on abdomen total body rash and itching d/w RN Objective Vitals Vital Signs Date Time Temp Pulse Resp B/P Pulse Ox O2 Delivery O2 Flow Rate FiO2 08/10/16 10:00 63 08/10/16 09:00 64 08/10/16 08:00 61 08/10/16 07:00 60 08/10/16 07:00 98.8 75 20 144/56 98 08/10/16 06:00 60 08/10/16 05:00 68 08/10/16 04:00 62 08/10/16 03:00 98.0 68 18 117/50 97 08/10/16 03:00 59 08/10/16 02:00 60 08/10/16 01:00 62 08/10/16 00:00 62 08/09/16 23:00 67 08/09/16 23:00 98.3 64 20 106/49 94 08/09/16 22:00 68 08/09/16 21:00 70 08/09/16 20:00 72 08/09/16 19:00 99.0 69 22 129/50 94 08/09/16 19:00 67 08/09/16 18:00 66 08/09/16 17:00 61 08/09/16 16:00 66 08/09/16 15:00 70 08/09/16 15:00 97.8 68 20 123/58 99 08/09/16 14:00 70 08/09/16 13:00 73 08/09/16 12:00 64 08/09/16 11:00 71 08/09/16 11:00 97.8 68 20 123/58 99 I/O 08/09/16 08/09/16 08/09/16 08/10/16 08/10/16 08/10/16 07:00 15:00 23:00 07:00 15:00 23:00 Intake Total 590 ml 1044 ml 640 ml Balance 590 ml 1044 ml 640 ml Intake Oral 240 ml 84 ml 240 ml IV Total 350 ml 960 ml 400 ml # Voids 3 5 1 # Bowel Movements 3 Result Diagram: 08/10/16 0445 08/10/16 0445 Objective Remarks GENERAL: SKIN: Warm and dry. total body erythema. abdom wound w exudate and erythema and gtt; HEAD: Atraumatic. Normocephalic. EYES: Pupils equal and round. No scleral icterus. No injection or drainage. ENT: No nasal bleeding or discharge. Mucous membranes pink and moist. NECK: Trachea midline. No JVD. CARDIOVASCULAR: Regular rate and rhythm. RESPIRATORY: No accessory muscle use. Clear to auscultation. Breath sounds equal bilaterally. GASTROINTESTINAL: Abdomen soft, non-tender, nondistended. Hepatic and splenic margins not palpable. MUSCULOSKELETAL: Extremities without clubbing, cyanosis, or edema. No obvious deformities. NEUROLOGICAL: Awake and alert. No obvious cranial nerve deficits. Motor grossly within normal limits. 2 out of 5 muscle strength in the arms and legs. Normal speech. PSYCHIATRIC: Appropriate mood and affect; insight and judgment normal. Medications and IVs Current Medications Medications (Trade) Dose Ordered Sig/Cassie Route Start Time Stop Time Status Last Admin (NS Flush) 2 ml UNSCH PRN IV FLUSH 08/07/16 02:15 (NS Flush) 2 ml BID IV FLUSH 08/07/16 09:00 08/10/16 08:40 (Zofran Inj) 4 mg Q6H PRN IVP 08/07/16 02:15 08/09/16 21:45 (Dulcolax Supp) 10 mg DAILY PRN MA 08/07/16 02:15 (Tylenol) 650 mg Q6H PRN PO 08/07/16 02:15 ([place] 5-325 Mg) 1 tab Q4H PRN PO 08/07/16 02:15 08/09/16 21:53 (Morphine Inj) 2 mg Q3H PRN IV 08/07/16 02:15 (Lac-Hydrin 12% Lotion) 1 applic BID TOPICAL 08/07/16 21:00 08/10/16 08:40 (KCl) 10 meq DAILY PO 08/08/16 09:00 08/10/16 08:40 Aspirin 81 mg 81 mg DAILY PO 08/08/16 09:00 08/10/16 08:40 Sodium Chloride 1,000 ml @ 30 mls/hr Q24H IV 08/08/16 10:15 08/10/16 00:23 (Cardizem Inj/NS Inj) 125 ml @ 0 mls/hr TITRATE IV 08/08/16 14:45 08/09/16 12:29 Diltiazem HCl 30 mg 30 mg Q6H PO 08/09/16 13:00 08/10/16 07:10 (Flagyl 500 Mg Inj) 100 ml @ 100 mls/hr Q8H IV 08/09/16 14:00 08/10/16 06:00 (VANCOMYCIN for oral use only) 250 mg QID PO 08/09/16 13:00 08/10/16 08:40 (Questran 4 Gm Pkt) 4 gm TID PO 08/09/16 13:00 08/10/16 08:39 A/P Assessment and Plan Problem List: (1) Bilateral cellulitis of lower leg Status: Acute (2) Psoriasis Status: Acute (3) Sepsis affecting skin Status: Acute (4) Cellulitis of lower extremity Status: Acute (5) Partial small bowel obstruction Status: Acute (6) Small bowel strangulation Status: Acute (7) Incarcerated hernia Status: Acute (8) Enterocutaneous fistula Status: Acute (9) Hypokalemia Status: Acute (10) SVT (supraventricular tachycardia) Status: Acute (11) NILAM (acute kidney injury) Status: Acute (12) Afib Status: Acute Plan: SEPSIS C DIF LEG CELLULITIS DRUG RASH D/T VANC OR FLAGYL OR NARCOTICS? SVT VENTRAL HERNIA INCISION DEHISCENCE PLAN: IVF'S STOP CARDIZEM GTT, TO PO IV ABX FOR C DIF ID CONSULT FOLLOWUP BLOOD CULTURES SEPSIS R/O, SEE LABS CX'S DR REBOLLEDO CONSULT TO CHECK ABDOMINAL WOUND DEHISCENCE. AM LABS WOUND CONSULT Jose Enrique Roberson MD Aug 10, 2016 11:00
--- NOTE | 2016-08-10 11:33 | PD.CONS ---
History of Present Illness Service Infectious disease Consult Requested By Dr Mary Roberson Reason for Consult Evaluate patient with rash, on by mouth vancomycin and Flagyl for C. difficile, please evaluate and make recommendations Primary Care Physician Jose Enrique Roberson MD Diagnoses: History of Present Illness Patient seen and examined. Records reviewed. Patient is a 75-year-old female, who has been in the rehabilitation facility after she was discharged from the hospital the second week in July, brought into the hospital for further evaluation of palpitations. Patient was found to be in SVT, and patient was stabilized. Cardiology saw her. Yesterday patient started having significant diarrhea, and stool for C. difficile came back positive. Started on IV Flagyl and oral vancomycin. Last night patient was noted to have a diffuse body erythema. Infectious disease consultation requested to evaluate the patient. Prior to developing the redness, patient apparently has been having significant generalized itching. Up. She still has diarrhea, but denies any abdominal pain. Patient was also noted to have 3 areas of what looks like a wound dehiscence on her midline incision. Denies any respiratory complaints or any nausea or vomiting. Infectious disease consultation requested to evaluate the patient. Review of Systems Constitutional: DENIES: Fever, Chills Eyes: DENIES: Eye pain Ears, nose, mouth, throat: DENIES: Nasal discharge, Oral lesions, Throat pain, Sinus Pain, Toothache Respiratory: DENIES: Cough, Shortness of breath Cardiovascular: COMPLAINS OF: Palpitations, Dyspnea on Exertion, DENIES: Chest pain Gastrointestinal: COMPLAINS OF: Diarrhea, DENIES: Abdominal pain, Nausea, Vomiting, Difficulty Swallowing Genitourinary: DENIES: Dysuria Musculoskeletal: COMPLAINS OF: Joint pain, Stiffness, DENIES: Joint Swelling Integumentary: COMPLAINS OF: Rash Neurologic: DENIES: Headache Psychiatric: COMPLAINS OF: Hallucinations Past Family Social History Allergies: Coded Allergies: No Known Allergies (Unverified , 07/19/16) Past Medical History Hypertension Atrial fibrillation Past Surgical History Cholecystectomy Hernia Repair Eye Surgery Recent hospita;ization: Exploratory laparotomy Lysis of adhesions greater than one hour Ileocecectomy [place] of enterocutaneous fistula Primary repair of recurrent incarcerated ventral incisional hernia Active Ordered Medications Tylenol [place] Aspirin Dulcolax Questran Cardizem Benadryl IV Flagyl Oral Vanco Morphine Zofran Potassium Social History No smoking Alcohol abuse No drug use Physical Exam Vital Signs Vital Signs Date Time Temp Pulse Resp B/P Pulse Ox O2 Delivery O2 Flow Rate FiO2 08/10/16 10:00 63 08/10/16 09:00 64 08/10/16 08:00 61 08/10/16 07:00 60 08/10/16 07:00 98.8 75 20 144/56 98 08/10/16 06:00 60 08/10/16 05:00 68 08/10/16 04:00 62 08/10/16 03:00 98.0 68 18 117/50 97 08/10/16 03:00 59 08/10/16 02:00 60 08/10/16 01:00 62 08/10/16 00:00 62 08/09/16 23:00 67 08/09/16 23:00 98.3 64 20 106/49 94 08/09/16 22:00 68 08/09/16 21:00 70 08/09/16 20:00 72 08/09/16 19:00 99.0 69 22 129/50 94 08/09/16 19:00 67 08/09/16 18:00 66 08/09/16 17:00 61 08/09/16 16:00 66 08/09/16 15:00 70 08/09/16 15:00 97.8 68 20 123/58 99 08/09/16 14:00 70 08/09/16 13:00 73 08/09/16 12:00 64 Physical Exam GENERAL: This is a well-nourished, well-developed female, awake and alert, in no apparent distress. SKIN: Warm and dry. Has generalized patches of large erythema that blanches on pressure, and has pruritus. HEAD: Atraumatic. Normocephalic. No temporal or scalp tenderness. EYES: [place] conjunctivae. Pupils equal round and reactive. Extraocular motions intact. No scleral icterus. No injection or drainage. ENT: Nose without bleeding, or purulent drainage. Moist oral mucosa. Throat without erythema, tonsillar hypertrophy or exudate. Uvula midline. Airway patent. NECK: Trachea midline. No JVD or lymphadenopathy. Supple, nontender, no meningeal signs. CARDIOVASCULAR: Regular rate and rhythm without murmurs, gallops, or rubs. RESPIRATORY: Clear to auscultation. Breath sounds equal bilaterally. No wheezes , rales, or rhonchi. GASTROINTESTINAL: Abdomen soft, non-tender, mildly distended, seemed to have a ventral hernia. Has a midline incision, with estefani in place, has 3 areas of ? wound dehiscence. No area of erythema, and has small amount of yellow drainage. No guarding. No rebound. Bowel sounds are present and normoactive. MUSCULOSKELETAL: Extremities without clubbing, cyanosis, or edema. The skin in both legs are very tight. She has a superficial wound with red base on her R lateral ankle/foot, with no surrounding erythema,no evidence of infection. No calf tenderness. Negative Homans sign bilaterally. Her LLE is larger compared to her RLE. NEUROLOGICAL: Awake and alert. Cranial nerves II through XII intact. Motor and sensory grossly within normal limits. Five out of 5 muscle strength in all muscle groups. Normal speech. PSYCH: Normal affect, calm and cooperative LINE: NO evidence of infection Laboratory Laboratory Tests Test 08/09/16 08/10/16 16:02 04:45 Lactic Acid Level 2.9 White Blood Count 13.2 Red Blood Count 3.39 Hemoglobin 10.3 Hematocrit 30.8 Mean Corpuscular Volume 90.9 Mean Corpuscular Hemoglobin 30.4 Mean Corpuscular Hemoglobin 33.4 Concent Red Cell Distribution Width 14.3 Platelet Count 364 Mean Platelet Volume 7.6 Neutrophils (%) (Auto) 74.2 Lymphocytes (%) (Auto) 17.5 Monocytes (%) (Auto) 3.3 Eosinophils (%) (Auto) 4.8 Basophils (%) (Auto) 0.2 Neutrophils # (Auto) 9.8 Lymphocytes # (Auto) 2.3 Monocytes # (Auto) 0.4 Eosinophils # (Auto) 0.6 Basophils # (Auto) 0.0 CBC Comment DIFF FINAL Differential Comment Sodium Level 143 Potassium Level 3.6 Chloride Level 109 Carbon Dioxide Level 26.4 Anion Gap 8 Blood Urea Nitrogen 14 Creatinine 1.02 Estimat Glomerular Filtration 53 Rate Random Glucose 93 Calcium Level 7.9 Date/Time Procedure Status Source Growth 08/09/16 16:02 Aerobic Blood Culture - Preliminary Resulted Blood Peripheral NO GROWTH IN 1 DAY 08/09/16 16:02 Anaerobic Blood Culture - Preliminary Resulted Blood Peripheral NO GROWTH IN 1 DAY Result Diagram: 08/10/16 0445 08/10/16 0445 Imaging RADIOLOGY STUDIES/FILMS REVIEWED Chest X-Ray 08/07/16 0007 Signed Impressions: Service Date/Time: Sunday, August 07, 2016 00:07 - CONCLUSION: 1. No active disease. Martín Anaya MD Assessment and Plan Assessment and Plan IMPRESSION C difficile colitis Rash, ?from Flagyl - oral vanco not absorbed - need to look at other meds as culprit SVT, resolved Recent abdominal surgery for incarcerated hernia, and had beginning enterocutaneous fistula that was repaired R ankle open wound, no evidence of infection RECOMMENDATION Stop Flagyl PO vanco for Rx of C diff Add lactinex Wound care to R ankle wound Surgery to evaluate abdominal incision Monitor progress I will follow along with you Thank you for this consultation Discussed Condition With D/W RN Explained to patient Mariann Hayward MD Aug 10, 2016 11:33
[2016-08-10] MEDS: diphenhydrAMINE HCL 25 MG CAP PO PRN (12:01)
[2016-08-10] MEDS: COLLAGENASE OINT 30 GM TUBE TOPICAL SCH (12:09)
[2016-08-10] MEDS: LACTOBACILLUS ACIDOPHILUS TAB PO SCH ×2 (12:10→18:15)
--- NOTE | 2016-08-10 13:03 | PD.CONS ---
HPI Service The patient presented back from the SNF for SVT a few days ago. She has been noted to have C. difficile colitis and is undergoing treatment. She denies significant abdominal pain. She has healing wound in the midline and I was consulted to evaluate that. Consult Requested By Primary Care Physician Jose Enrique Roberson MD Review of Systems Constitutional: DENIES: Fever, Chills Eyes: DENIES: Eye inflammation, Eye pain Gastrointestinal: COMPLAINS OF: Diarrhea, DENIES: Abdominal pain Musculoskeletal: DENIES: Joint pain, Muscle aches Integumentary: DENIES: Pruritus, Rash Neurologic: DENIES: Headache, Localized weakness Past Family Social History Past Medical History Hypertension Atrial fibrillation Past Surgical History Cholecystectomy Incarcerated ventral hernia repair with ileocecectomy on July 19 Reported Medications Reported Meds & Active Scripts Active Oxycodone-Acetaminophen 5-325 mg Tab 1 Tab PO Q4H PRN Lasix (Furosemide) 40 Mg Tab 40 Mg PO DAILY 90 Days Reported Zinc Sulfate 220 Mg Tab 220 Mg PO DAILY Vitamin C (Ascorbic Acid) 500 Mg Tab 500 Mg PO BID Multiple Vitamin 1 Tab 1 Tab PO DAILY Milk of Magnesia Liq (Magnesium Hydroxide) 400 Mg/5 Ml Susp 30 Ml PO HS PRN Lac-Hydrin (Lactic Acid (Ammonium Lactate)) 12% Lotn 1 Applic TOPICAL BID Apply to entire body every day shift Dulcolax Supp (Bisacodyl) 10 Mg Supp 10 Mg DE IN AM PRN Citroma Liq (Magnesium Citrate) 300 Ml Liq 300 Ml PO IN AM PRN Klor-Con 10 (Potassium Chloride) 10 Meq Tab 10 Meq PO DAILY Zofran (Ondansetron HCl) 4 Mg Tab 4 Mg PO Q4HR PRN Allergies: Coded Allergies: No Known Allergies (Unverified , 07/19/16) Active Ordered Medications Current Medications Medications (Trade) Dose Ordered Sig/Cassie Route Start Time Stop Time Status Last Admin (NS Flush) 2 ml UNSCH PRN IV FLUSH 08/07/16 02:15 (NS Flush) 2 ml BID IV FLUSH 08/07/16 09:00 08/10/16 08:40 (Zofran Inj) 4 mg Q6H PRN IVP 08/07/16 02:15 08/09/16 21:45 (Dulcolax Supp) 10 mg DAILY PRN [place] 08/07/16 02:15 (Tylenol) 650 mg Q6H PRN PO 08/07/16 02:15 ([place] 5-325 Mg) 1 tab Q4H PRN PO 08/07/16 02:15 08/09/16 21:53 (Morphine Inj) 2 mg Q3H PRN IV 08/07/16 02:15 (Lac-Hydrin 12% Lotion) 1 applic BID TOPICAL 08/07/16 21:00 08/10/16 08:40 (KCl) 10 meq DAILY PO 08/08/16 09:00 08/10/16 08:40 Aspirin 81 mg 81 mg DAILY PO 08/08/16 09:00 08/10/16 08:40 Sodium Chloride 1,000 ml @ 30 mls/hr Q24H IV 08/08/16 10:15 08/10/16 00:23 (Cardizem Inj/NS Inj) 125 ml @ 0 mls/hr TITRATE IV 08/08/16 14:45 08/09/16 12:29 (Cardizem) 30 mg Q6H PO 08/09/16 13:00 08/10/16 12:01 (VANCOMYCIN for oral use only) 250 mg QID PO 08/09/16 13:00 08/10/16 12:01 (Questran 4 Gm Pkt) 4 gm TID PO 08/09/16 13:00 08/10/16 12:01 (Benadryl) 25 mg Q4H PRN PO 08/10/16 11:00 08/10/16 12:01 (Lactinex) 1 tab TID PO 08/10/16 13:00 08/10/16 12:10 (Santyl Oint) 1 applic DAILY TOPICAL 08/10/16 13:00 08/10/16 12:09 Family History Noncontributory Social History Currently lives at [facility]. No ETOH tobacco or drug use. Physical Exam Vital Signs Vital Signs Date Time Temp Pulse Resp B/P Pulse Ox O2 Delivery O2 Flow Rate FiO2 08/10/16 12:00 64 08/10/16 11:00 61 08/10/16 11:00 98.0 67 18 126/52 99 08/10/16 10:00 63 08/10/16 09:00 64 08/10/16 08:00 61 08/10/16 07:00 60 08/10/16 07:00 98.8 75 20 144/56 98 08/10/16 06:00 60 08/10/16 05:00 68 08/10/16 04:00 62 08/10/16 03:00 98.0 68 18 117/50 97 08/10/16 03:00 59 08/10/16 02:00 60 08/10/16 01:00 62 08/10/16 00:00 62 08/09/16 23:00 67 08/09/16 23:00 98.3 64 20 106/49 94 08/09/16 22:00 68 08/09/16 21:00 70 08/09/16 20:00 72 08/09/16 19:00 99.0 69 22 129/50 94 08/09/16 19:00 67 08/09/16 18:00 66 08/09/16 17:00 61 08/09/16 16:00 66 08/09/16 15:00 70 08/09/16 15:00 97.8 68 20 123/58 99 08/09/16 14:00 70 08/09/16 13:00 73 Physical Exam GENERAL: Awake and alert. No acute distress. Cooperative. HEAD: Normocephalic. Atraumatic. EYES: Pupils equal round and reactive to light bilaterally. No scleral icterus. CHEST: Nonlabored breathing. No respiratory distress. CARDIOVASCULAR: Regular rate and rhythm. ABDOMEN: Soft nontender. Midline incision healing well. There are 3 areas with healing wounds which had persisted purposefully been left open SKIN: Warm, dry, nonjaundiced. Dry scaly skin on the lower legs Laboratory Laboratory Tests Test 08/09/16 08/10/16 16:02 04:45 Lactic Acid Level 2.9 White Blood Count 13.2 Red Blood Count 3.39 Hemoglobin 10.3 Hematocrit 30.8 Mean Corpuscular Volume 90.9 Mean Corpuscular Hemoglobin 30.4 Mean Corpuscular Hemoglobin 33.4 Concent Red Cell Distribution Width 14.3 Platelet Count 364 Mean Platelet Volume 7.6 Neutrophils (%) (Auto) 74.2 Lymphocytes (%) (Auto) 17.5 Monocytes (%) (Auto) 3.3 Eosinophils (%) (Auto) 4.8 Basophils (%) (Auto) 0.2 Neutrophils # (Auto) 9.8 Lymphocytes # (Auto) 2.3 Monocytes # (Auto) 0.4 Eosinophils # (Auto) 0.6 Basophils # (Auto) 0.0 CBC Comment DIFF FINAL Differential Comment Sodium Level 143 Potassium Level 3.6 Chloride Level 109 Carbon Dioxide Level 26.4 Anion Gap 8 Blood Urea Nitrogen 14 Creatinine 1.02 Estimat Glomerular Filtration 53 Rate Random Glucose 93 Calcium Level 7.9 Date/Time Procedure Status Source Growth 08/09/16 16:02 Aerobic Blood Culture - Preliminary Resulted Blood Peripheral NO GROWTH IN 1 DAY 08/09/16 16:02 Anaerobic Blood Culture - Preliminary Resulted Blood Peripheral NO GROWTH IN 1 DAY Result Diagram: 08/10/16 0445 08/10/16 0445 Assessment and Plan Assessment and Plan 75-year-old female status post ventral hernia repair on July 19 admitted for SVT and C. difficile colitis. Her midline wound is healing well. I will ask the nurse to remove the estefani. She can continue to have a dry dressing. She should follow up with me in 1-2 weeks. RodríguezRaffi guo MD Aug 10, 2016 13:03
[2016-08-10] MEDS: ACETAMINOPHEN/HYDROcodone 325 MG/5 MG TAB PO PRN ×2 (14:02→21:34)
[2016-08-10] MEDS: ONDANSETRON HCL 4 MG/2 ML VIAL IVP PRN ×2 (14:03→21:33)
--- NOTE | 2016-08-10 15:26 | RADRPT ---
EXAM DATE/TIME: 08/10/2016 13:26 [place] COMPARISON: No previous studies available for comparison. INDICATIONS : Left leg pain. MEDICAL HISTORY : Hypertension. Afib. SURGICAL HISTORY : Cholecystectomy. Hernia repair. Eye surgery. ENCOUNTER: Initial ACUITY: 1 day PAIN SCORE: 4/10 LOCATION: Left leg. TECHNIQUE: Venous ultrasound of the leg was performed from the inguinal ligament to the proximal calf. Real-shayla e, color Doppler and spectral tracing, compression and augmentation techniques were used. FINDINGS: There is normal compressibility of the deep venous system from the inguinal region to the proxim al calf. No echogenic clot is seen in the lumen of the common femoral, femoral, popliteal, and poste rior tibial veins. There is a normal response of the venous system to proximal and distal augmentati on and respiration. CONCLUSION: Negative for deep venous thrombosis. Isidoro Marshall MD FACR Isidoro Marshall MD FACR on August 10, 2016 at 15:23 Board Certified Radiologist. This report was verified electronically.
--- NOTE | 2016-08-10 16:47 | PD.CARD.PN ---
Subjective Subjective Remarks alert in nad Objective Vital Signs / I&O Vital Signs Date Time Temp Pulse Resp B/P Pulse Ox O2 Delivery O2 Flow Rate FiO2 08/10/16 16:00 68 08/10/16 15:00 97.9 73 20 139/57 99 08/10/16 15:00 72 08/10/16 14:00 70 08/10/16 13:00 67 08/10/16 12:00 64 08/10/16 11:00 61 08/10/16 11:00 98.0 67 18 126/52 99 08/10/16 10:00 63 08/10/16 09:00 64 08/10/16 08:00 61 08/10/16 07:00 60 08/10/16 07:00 98.8 75 20 144/56 98 08/10/16 06:00 60 08/10/16 05:00 68 08/10/16 04:00 62 08/10/16 03:00 98.0 68 18 117/50 97 08/10/16 03:00 59 08/10/16 02:00 60 08/10/16 01:00 62 08/10/16 00:00 62 08/09/16 23:00 67 08/09/16 23:00 98.3 64 20 106/49 94 08/09/16 22:00 68 08/09/16 21:00 70 08/09/16 20:00 72 08/09/16 19:00 99.0 69 22 129/50 94 08/09/16 19:00 67 08/09/16 18:00 66 08/09/16 17:00 61 I/O 08/09/16 08/09/16 08/09/16 08/10/16 08/10/16 08/10/16 07:00 15:00 23:00 07:00 15:00 23:00 Intake Total 590 ml 1044 ml 640 ml Balance 590 ml 1044 ml 640 ml Intake Oral 240 ml 84 ml 240 ml IV Total 350 ml 960 ml 400 ml # Voids 3 5 1 1 1 # Bowel Movements 3 Physical Exam GENERAL: SKIN: Warm and dry. HEAD: Normocephalic. EYES: No scleral icterus. No injection or drainage. NECK: Supple, trachea midline. No JVD or lymphadenopathy. CARDIOVASCULAR: Regular rate and rhythm without murmurs, gallops, or rubs. RESPIRATORY: Breath sounds equal bilaterally. No accessory muscle use. GASTROINTESTINAL: Abdomen soft, non-tender, nondistended. MUSCULOSKELETAL: No cyanosis, or edema. BACK: Nontender without obvious deformity. No CVA tenderness. Laboratory Laboratory Tests Test 08/10/16 04:45 White Blood Count 13.2 TH/MM3 Red Blood Count 3.39 MIL/MM3 Hemoglobin 10.3 GM/DL Hematocrit 30.8 % Mean Corpuscular Volume 90.9 FL Mean Corpuscular Hemoglobin 30.4 PG Mean Corpuscular Hemoglobin 33.4 % Concent Red Cell Distribution Width 14.3 % Platelet Count 364 TH/MM3 Mean Platelet Volume 7.6 FL Neutrophils (%) (Auto) 74.2 % Lymphocytes (%) (Auto) 17.5 % Monocytes (%) (Auto) 3.3 % Eosinophils (%) (Auto) 4.8 % Basophils (%) (Auto) 0.2 % Neutrophils # (Auto) 9.8 TH/MM3 Lymphocytes # (Auto) 2.3 TH/MM3 Monocytes # (Auto) 0.4 TH/MM3 Eosinophils # (Auto) 0.6 TH/MM3 Basophils # (Auto) 0.0 TH/MM3 CBC Comment DIFF FINAL Differential Comment Sodium Level 143 MEQ/L Potassium Level 3.6 MEQ/L Chloride Level 109 MEQ/L Carbon Dioxide Level 26.4 MEQ/L Anion Gap 8 MEQ/L Blood Urea Nitrogen 14 MG/DL Creatinine 1.02 MG/DL Estimat Glomerular Filtration 53 ML/MIN Rate Random Glucose 93 MG/DL Calcium Level 7.9 MG/DL Assessment and Plan Problem List: (1) SVT (supraventricular tachycardia) (2) Afib Assessment and Plan 1.) Svt resolved, patient refuses coumadin or noac, rec continue aspirin 81 mg qd, wean iv cardizem, start cardizem 30 po q6hr, d/w patient and nurse Juma Priest MD Aug 10, 2016 16:47
[2016-08-11] VITALS (24 sets, daily range): BP systolic 113–141; BP diastolic 45–60; PULSE 58–74; RESP 14–20; TEMP 97.4–98.4; O2SAT 94–100
[2016-08-11] MEDS: DILTIAZEM HCL 30 MG TAB PO SCH ×4 (00:23→18:07)
[2016-08-11] MEDS: diphenhydrAMINE HCL 25 MG CAP PO PRN ×2 (00:23→21:03)
[2016-08-11 06:21] LABS: BICARBONATE 23.3 MEQ/L (21.0-32.0); POTASSIUM 3.6 MEQ/L (3.5-5.1)
[2016-08-11 07:06] LABS: AUTOMATED NEUTROPHIL # 8.2 TH/MM3 (1.8-7.7); BASOPHIL # 0.1 TH/MM3 (0-0.2); BASOPHIL % 0.5 % (0.0-2.0); EOSINOPHIL # 0.7 TH/MM3 (0-0.4); HEMATOCRIT 26.8 % (35.0-46.0); HEMO FLAGS DIFF FINAL; LYMPH % 19.6 % (9.0-44.0); LYMPHOCYTE # 2.3 TH/MM3 (1.0-4.8); MEAN CELL VOLUME 91.2 FL (80.0-100.0); MEAN CORPUSCULAR HEMOGLOBIN 30.7 PG (27.0-34.0); MEAN CORPUSCULAR HGB CONC 33.7 % (32.0-36.0); MONO % 4.4 % (0.0-8.0); NEUT % 69.5 % (16.0-70.0); PLATELET COUNT 312 TH/MM3 (150-450); RED BLOOD COUNT 2.94 MIL/MM3 (4.00-5.30); RED CELL DISTRIBUTION WIDTH 14.5 % (11.6-17.2); WHITE BLOOD COUNT 11.7 TH/MM3 (4.0-11.0)
[2016-08-11] MEDS ORDERED: DILTIAZEM INJ 125 MG in SODIUM CHLORIDE 0.9% INJ 100 ML IV PRN (08:00)
--- NOTE | 2016-08-11 08:26 | PD.CARD.PN ---
Subjective Subjective Remarks alert in nad Objective Vital Signs / I&O Vital Signs Date Time Temp Pulse Resp B/P Pulse Ox O2 Delivery O2 Flow Rate FiO2 08/11/16 06:00 62 08/11/16 05:00 58 08/11/16 04:00 68 08/11/16 03:00 98.0 64 16 113/45 95 08/11/16 03:00 64 08/11/16 02:00 66 08/11/16 01:00 62 08/11/16 00:00 61 08/10/16 23:00 68 08/10/16 23:00 97.6 71 14 114/53 97 08/10/16 22:00 68 08/10/16 21:00 72 08/10/16 20:00 72 08/10/16 19:00 97.8 76 14 124/52 97 08/10/16 19:00 66 08/10/16 18:00 64 08/10/16 17:00 68 08/10/16 16:00 68 08/10/16 15:00 97.9 73 20 139/57 99 08/10/16 15:00 72 08/10/16 14:00 70 08/10/16 13:00 67 08/10/16 12:00 64 08/10/16 11:00 61 08/10/16 11:00 98.0 67 18 126/52 99 08/10/16 10:00 63 08/10/16 09:00 64 I/O 08/10/16 08/10/16 08/10/16 08/11/16 08/11/16 08/11/16 07:00 15:00 23:00 07:00 15:00 23:00 Intake Total 640 ml 1527 ml 660 ml Output Total 150 ml Balance 640 ml 1527 ml 510 ml Intake Oral 240 ml 840 ml 360 ml IV Total 400 ml 687 ml 300 ml Output Urine Total 150 ml # Voids 1 1 1 Physical Exam GENERAL: SKIN: Warm and dry. HEAD: Normocephalic. EYES: No scleral icterus. No injection or drainage. NECK: Supple, trachea midline. No JVD or lymphadenopathy. CARDIOVASCULAR: Regular rate and rhythm without murmurs, gallops, or rubs. RESPIRATORY: Breath sounds equal bilaterally. No accessory muscle use. GASTROINTESTINAL: Abdomen soft, non-tender, nondistended. MUSCULOSKELETAL: No cyanosis, or edema. BACK: Nontender without obvious deformity. No CVA tenderness. Laboratory Laboratory Tests Test 08/11/16 05:28 White Blood Count 11.7 TH/MM3 Red Blood Count 2.94 MIL/MM3 Hemoglobin 9.0 GM/DL Hematocrit 26.8 % Mean Corpuscular Volume 91.2 FL Mean Corpuscular Hemoglobin 30.7 PG Mean Corpuscular Hemoglobin 33.7 % Concent Red Cell Distribution Width 14.5 % Platelet Count 312 TH/MM3 Mean Platelet Volume 8.1 FL Neutrophils (%) (Auto) 69.5 % Lymphocytes (%) (Auto) 19.6 % Monocytes (%) (Auto) 4.4 % Eosinophils (%) (Auto) 6.0 % Basophils (%) (Auto) 0.5 % Neutrophils # (Auto) 8.2 TH/MM3 Lymphocytes # (Auto) 2.3 TH/MM3 Monocytes # (Auto) 0.5 TH/MM3 Eosinophils # (Auto) 0.7 TH/MM3 Basophils # (Auto) 0.1 TH/MM3 CBC Comment DIFF FINAL Differential Comment Sodium Level 140 MEQ/L Potassium Level 3.6 MEQ/L Chloride Level 108 MEQ/L Carbon Dioxide Level 23.3 MEQ/L Anion Gap 9 MEQ/L Blood Urea Nitrogen 13 MG/DL Creatinine 0.99 MG/DL Estimat Glomerular Filtration 55 ML/MIN Rate Random Glucose 83 MG/DL Calcium Level 7.9 MG/DL Assessment and Plan Problem List: (1) SVT (supraventricular tachycardia) (2) Afib Assessment and Plan 1.) Svt resolved, patient refuses coumadin or noac, rec continue aspirin 81 mg qd, wean iv cardizem, start cardizem 30 po q6hr, d/w patient and nurse Juma Priest MD Aug 11, 2016 08:26
[2016-08-11] MEDS: SODIUM CHLORIDE 0.9% FLUSH 10 ML FLUSH IV FLUSH SCH ×2 (10:04→21:00)
[2016-08-11] MEDS: LACTOBACILLUS ACIDOPHILUS TAB PO SCH ×3 (10:04→18:07)
[2016-08-11] MEDS: ASPIRIN EC 81 MG TABEC PO SCH (10:04)
[2016-08-11] MEDS: POTASSIUM CHLORIDE 10 MEQ CONTROLLED RELEASE TAB PO SCH (10:04)
[2016-08-11] MEDS: COLLAGENASE OINT 30 GM TUBE TOPICAL SCH (10:05)
[2016-08-11] MEDS: LACTIC ACID (AMMONIUM LACTATE) 12% LOTION 225 GM BTL TOPICAL SCH ×2 (10:05→21:00)
[2016-08-11] MEDS: VANCOMYCIN 500 MG VIAL (FOR ORAL USE ONLY) PO SCH ×4 (10:05→21:05)
[2016-08-11] MEDS: CHOLESTYRAMINE 4 GM PACKET PO SCH ×3 (10:05→18:07)
[2016-08-11] MEDS: SODIUM CHLOR 0.45% 1000 ML INJ 1,000 ML IV SCH (10:06)
--- NOTE | 2016-08-11 12:28 | HHI.PR ---
Subjective Remarks Follow-up C. difficile and rash. No stool today. Pruritus about the same denies shortness of breath. Seen with family. Discussed with RN Objective Vitals Vital Signs Date Time Temp Pulse Resp B/P Pulse Ox O2 Delivery O2 Flow Rate FiO2 08/11/16 08:00 97.7 69 16 120/53 97 08/11/16 07:00 65 08/11/16 06:00 62 08/11/16 05:00 58 08/11/16 04:00 68 08/11/16 03:00 98.0 64 16 113/45 95 08/11/16 03:00 64 08/11/16 02:00 66 08/11/16 01:00 62 08/11/16 00:00 61 08/10/16 23:00 68 08/10/16 23:00 97.6 71 14 114/53 97 08/10/16 22:00 68 08/10/16 21:00 72 08/10/16 20:00 72 08/10/16 19:00 97.8 76 14 124/52 97 08/10/16 19:00 66 08/10/16 18:00 64 08/10/16 17:00 68 08/10/16 16:00 68 08/10/16 15:00 97.9 73 20 139/57 99 08/10/16 15:00 72 08/10/16 14:00 70 08/10/16 13:00 67 I/O 08/10/16 08/10/16 08/10/16 08/11/16 08/11/16 08/11/16 07:00 15:00 23:00 07:00 15:00 23:00 Intake Total 640 ml 1527 ml 660 ml Output Total 150 ml Balance 640 ml 1527 ml 510 ml Intake Oral 240 ml 840 ml 360 ml IV Total 400 ml 687 ml 300 ml Output Urine Total 150 ml # Voids 1 1 1 Result Diagram: 08/11/16 0528 08/11/16 0528 Imaging Last Impressions Lower Extremity Ultrasound 08/10/16 0000 Signed Impressions: Service Date/Time: Wednesday, August 10, 2016 13:26 - CONCLUSION: Negative for deep venous thrombosis. Isidoro Marshall MD Chest X-Ray 08/07/16 0007 Signed Impressions: Service Date/Time: Sunday, August 07, 2016 00:07 - CONCLUSION: 1. No active disease. Martín Anaya MD Objective Remarks GENERAL: Well-developed, well-nourished in no distress SKIN: Warm and dry. Erythema in the extremities HEAD: Atraumatic. Normocephalic. EYES: Pupils equal and round. No scleral icterus. No injection or drainage. ENT: No nasal bleeding or discharge. Mucous membranes pink and moist. NECK: Trachea midline. No JVD. CARDIOVASCULAR: Regular rate and rhythm. RESPIRATORY: No accessory muscle use. Clear to auscultation. Breath sounds equal bilaterally. GASTROINTESTINAL: Abdomen soft, non-tender, nondistended. Dry dressing MUSCULOSKELETAL: Extremities without clubbing, cyanosis, or edema. No obvious deformities. NEUROLOGICAL: Awake and alert. No obvious cranial nerve deficits. Motor grossly within normal limits. Five out of 5 muscle strength in the arms and legs. Normal speech. PSYCHIATRIC: Appropriate mood and affect; insight and judgment normal. Procedures None A/P Problem List: (1) SVT (supraventricular tachycardia) ICD Code: I47.1 Status: Resolved (2) Hypokalemia ICD Code: E87.6 Status: Resolved (3) NILAM (acute kidney injury) ICD Code: N17.9 Status: Resolved Assessment and Plan 1. SVT: acute c/o palpitations, found to be in SVT by EMS w/ HR 180's, s/p Adenosine 6mg x1 w/ conversion to NSR. Per pt, previous episodes of SVT in the past. Remains in NSR, vitals stable. Hypokalemia replaced and following. Trop negative, EKG w/ no acute ischemia. CXR negative for acute findings, images reviewed by me. Continue Cardizem and aspirin 2. Hypokalemia: K+ 2.6, s/p 30mEq in ER, will need additional replacement, recheck K+, replace as needed. Repeat BMP in the morning 3. NILAM: Creatinine 1.13, previously 0.90 on 07/27/16. IVF for hydration, repeat labs in am. Improved 4. Sepsis secondary to C. difficile colitis and cellulitis. Improving continue vancomycin and Questran 5. Drug rash (new meds Flagyl, vancomycin, Questran, Lactinex) Stable still on these medications except Flagyl. Symptomatic treatment 6. Deconditioning. Physical therapy evaluation. DVT Prophylaxis: SCD/Teds. Add subcutaneous heparin Discharge Planning Rehabilitation versus home health care when ready Vinicio Miles MD Aug 11, 2016 12:28
[2016-08-11] MEDS ORDERED: CHOL4POW4 PO (12:31)
[2016-08-11] MEDS ORDERED: DILT31TA PO (12:31)
[2016-08-11] MEDS ORDERED: POTA-243 PO (12:31)
[2016-08-11] MEDS ORDERED: LACT PO (12:31)
[2016-08-11] MEDS ORDERED: ASPI81TA11 PO (12:31)
--- NOTE | 2016-08-11 12:32 | HHI.DCPOC ---
Discharge Care Plan Diagnosis: (1) Sepsis (2) Hypokalemia (3) Cellulitis of lower extremity Your Health Problems Are: Difficulty with ADL Exercise Tolerance Goals to Promote Your Health * To prevent worsening of your condition and complications * To maintain your health at the optimal level Directions to Meet Your Goals Take your medications as prescribed Follow your dietary instruction Follow activity as directed Keep your appointments as scheduled Take your immunizations and boosters as scheduled If your symptoms worsen call your PCP, if no PCP go to Urgent Care Center or Emergency Room Smoking is Dangerous to Your Health. Avoid second hand smoke Call the 24-hour hour crisis hotline for domestic abuse at Vinicio Miles MD Aug 11, 2016 12:32
[2016-08-11] MEDS: ONDANSETRON HCL 4 MG/2 ML VIAL IVP PRN (15:47)
[2016-08-11] MEDS: CALAMINE LOTION 180 APPLIC/180 ML BTL TOPICAL PRN ×2 (15:49→21:07)
[2016-08-11] MEDS: oxyCODONE/ACETAMINOPHEN 5 MG/325 MG TAB PO PRN ×2 (16:18→21:03)
[2016-08-11] MEDS: HEPARIN SODIUM - SQ 10,000 UNITS/ML VIAL SQ SCH (21:05)
[2016-08-12] VITALS (25 sets, daily range): BP systolic 111–140; BP diastolic 44–69; PULSE 58–119; RESP 16–18; TEMP 97.2–99; O2SAT 95–98
[2016-08-12] MEDS: DILTIAZEM HCL 30 MG TAB PO SCH ×4 (00:41→18:02)
--- NOTE | 2016-08-12 07:38 | HHI.PR ---
Subjective Remarks Follow-up C. difficile. Patient had 5 loose stools overnight denies nausea and abdominal pain. No shortness of breath. Improving pruritus discussed with RN Objective Vitals Vital Signs Date Time Temp Pulse Resp B/P Pulse Ox O2 Delivery O2 Flow Rate FiO2 08/12/16 07:00 67 08/12/16 06:00 64 08/12/16 05:00 58 08/12/16 04:00 62 08/12/16 03:00 65 08/12/16 03:00 97.9 119 18 140/69 98 08/12/16 02:00 62 08/12/16 01:00 62 08/12/16 00:00 64 08/11/16 23:00 97.9 67 14 119/54 94 08/11/16 23:00 67 08/11/16 22:00 64 08/11/16 21:00 64 08/11/16 20:00 66 08/11/16 19:00 97.9 63 20 116/54 97 08/11/16 19:00 67 08/11/16 18:00 74 08/11/16 17:00 66 08/11/16 16:00 70 08/11/16 16:00 98.4 71 16 128/58 96 08/11/16 15:00 72 08/11/16 14:00 66 08/11/16 13:00 74 08/11/16 12:00 66 08/11/16 12:00 97.4 67 16 141/60 100 08/11/16 11:00 66 08/11/16 10:00 68 08/11/16 09:00 64 08/11/16 08:00 97.7 69 16 120/53 97 08/11/16 08:00 62 I/O 08/11/16 08/11/16 08/11/16 08/12/16 08/12/16 08/12/16 07:00 15:00 23:00 07:00 15:00 23:00 Intake Total 660 ml 720 ml 240 ml Output Total 150 ml 400 ml Balance 510 ml 720 ml -160 ml Intake Oral 360 ml 720 ml 240 ml IV Total 300 ml Output Urine Total 150 ml 400 ml # Voids 3 # Bowel Movements 4 Result Diagram: 08/11/16 0528 08/11/16 0528 Objective Remarks GENERAL: Well-developed, well-nourished in no distress SKIN: Warm and dry. Erythema in the extremities covered with calamine HEAD: Atraumatic. Normocephalic. EYES: Pupils equal and round. No scleral icterus. No injection or drainage. ENT: No nasal bleeding or discharge. Mucous membranes pink and moist. NECK: Trachea midline. No JVD. CARDIOVASCULAR: Regular rate and rhythm. RESPIRATORY: No accessory muscle use. Clear to auscultation. Breath sounds equal bilaterally. GASTROINTESTINAL: Abdomen soft, non-tender, nondistended. Dry dressing MUSCULOSKELETAL: Extremities without clubbing, cyanosis, or edema. No obvious deformities. NEUROLOGICAL: Awake and alert. No obvious cranial nerve deficits. Motor grossly within normal limits. Five out of 5 muscle strength in the arms and legs. Normal speech. PSYCHIATRIC: Appropriate mood and affect; insight and judgment normal. Procedures None A/P Problem List: (1) SVT (supraventricular tachycardia) ICD Code: I47.1 Status: Resolved (2) Hypokalemia ICD Code: E87.6 Status: Resolved (3) NILAM (acute kidney injury) ICD Code: N17.9 Status: Resolved Assessment and Plan 1. SVT: acute c/o palpitations, found to be in SVT by EMS w/ HR 180's, s/p Adenosine 6mg x1 w/ conversion to NSR. Per pt, previous episodes of SVT in the past. Remains in NSR, vitals stable. Hypokalemia replaced and following. Trop negative, EKG w/ no acute ischemia. CXR negative for acute findings, images reviewed by me. Continue Cardizem and aspirin 2. Hypokalemia: K+ 2.6, s/p 30mEq in ER, will need additional replacement, recheck K+, replace as needed. Repeat BMP in pending 3. NILAM: Creatinine 1.13, previously 0.90 on 07/27/16. IVF for hydration, repeat labs in am. Improved. 4. Sepsis secondary to C. difficile colitis and cellulitis. Improving but still with diarrhea continue vancomycin and Questran. IV fluids to prevent dehydration 5. Drug rash (new meds Flagyl, vancomycin, Questran, Lactinex) Stable still on these new medications except Flagyl. Symptomatic treatment 6. Deconditioning. Physical therapy evaluation. DVT Prophylaxis: SCD/Teds. Add subcutaneous heparin Discharge Planning Rehabilitation versus home health care when ready possibly in the morning Vinicio Miles MD Aug 12, 2016 07:37
[2016-08-12] MEDS ORDERED: NS + KCL 20 MEQ INJ 1,000 ML IV PRN (08:30)
[2016-08-12 09:25] LABS: AUTOMATED NEUTROPHIL # 7.4 TH/MM3 (1.8-7.7); BASOPHIL # 0.1 TH/MM3 (0-0.2); EOSINOPHIL # 0.8 TH/MM3 (0-0.4); EOSINOPHIL % 7.2 % (0.0-4.0); HEMATOCRIT 30.6 % (35.0-46.0); HEMO FLAGS DIFF FINAL; LYMPH % 16.5 % (9.0-44.0); LYMPHOCYTE # 1.8 TH/MM3 (1.0-4.8); MEAN CELL VOLUME 91.2 FL (80.0-100.0); MEAN CORPUSCULAR HEMOGLOBIN 30.5 PG (27.0-34.0); MEAN CORPUSCULAR HGB CONC 33.4 % (32.0-36.0); MONO % 5.6 % (0.0-8.0); NEUT % 69.7 % (16.0-70.0); PLATELET COUNT 361 TH/MM3 (150-450); RED BLOOD COUNT 3.35 MIL/MM3 (4.00-5.30); RED CELL DISTRIBUTION WIDTH 14.8 % (11.6-17.2); WHITE BLOOD COUNT 10.6 TH/MM3 (4.0-11.0)
[2016-08-12] MEDS: VANCOMYCIN 500 MG VIAL (FOR ORAL USE ONLY) PO SCH ×4 (09:36→20:53)
[2016-08-12] MEDS: CHOLESTYRAMINE 4 GM PACKET PO SCH ×3 (09:36→18:02)
[2016-08-12] MEDS: ASPIRIN EC 81 MG TABEC PO SCH (09:37)
[2016-08-12] MEDS: SODIUM CHLORIDE 0.9% FLUSH 10 ML FLUSH IV FLUSH SCH ×2 (09:37→20:54)
[2016-08-12] MEDS: LACTOBACILLUS ACIDOPHILUS TAB PO SCH ×3 (09:37→18:03)
[2016-08-12] MEDS: POTASSIUM CHLORIDE 10 MEQ CONTROLLED RELEASE TAB PO SCH (09:37)
[2016-08-12] MEDS: HEPARIN SODIUM - SQ 10,000 UNITS/ML VIAL SQ SCH ×2 (09:37→20:53)
[2016-08-12] MEDS: LACTIC ACID (AMMONIUM LACTATE) 12% LOTION 225 GM BTL TOPICAL SCH ×2 (09:38→20:54)
[2016-08-12] MEDS: COLLAGENASE OINT 30 GM TUBE TOPICAL SCH (09:38)
[2016-08-12 09:57] LABS: BICARBONATE 23.9 MEQ/L (21.0-32.0); MAGNESIUM 1.9 MG/DL (1.5-2.5); POTASSIUM 3.5 MEQ/L (3.5-5.1)
--- NOTE | 2016-08-12 11:00 | PD.CARD.PN ---
Subjective Subjective Remarks alert in nad Objective Vital Signs / I&O Vital Signs Date Time Temp Pulse Resp B/P Pulse Ox O2 Delivery O2 Flow Rate FiO2 08/12/16 10:00 66 08/12/16 09:00 70 08/12/16 08:00 98.0 68 16 133/54 96 08/12/16 08:00 64 08/12/16 07:00 67 08/12/16 06:00 64 08/12/16 05:00 58 08/12/16 04:00 62 08/12/16 03:00 65 08/12/16 03:00 97.9 119 18 140/69 98 08/12/16 02:00 62 08/12/16 01:00 62 08/12/16 00:00 64 08/11/16 23:00 97.9 67 14 119/54 94 08/11/16 23:00 67 08/11/16 22:00 64 08/11/16 21:00 64 08/11/16 20:00 66 08/11/16 19:00 97.9 63 20 116/54 97 08/11/16 19:00 67 08/11/16 18:00 74 08/11/16 17:00 66 08/11/16 16:00 70 08/11/16 16:00 98.4 71 16 128/58 96 08/11/16 15:00 72 08/11/16 14:00 66 08/11/16 13:00 74 08/11/16 12:00 66 08/11/16 12:00 97.4 67 16 141/60 100 08/11/16 11:00 66 I/O 08/11/16 08/11/16 08/11/16 08/12/16 08/12/16 08/12/16 07:00 15:00 23:00 07:00 15:00 23:00 Intake Total 660 ml 720 ml 240 ml Output Total 150 ml 400 ml Balance 510 ml 720 ml -160 ml Intake Oral 360 ml 720 ml 240 ml IV Total 300 ml Output Urine Total 150 ml 400 ml # Voids 3 # Bowel Movements 4 Physical Exam GENERAL: SKIN: Warm and dry. HEAD: Normocephalic. EYES: No scleral icterus. No injection or drainage. NECK: Supple, trachea midline. No JVD or lymphadenopathy. CARDIOVASCULAR: Regular rate and rhythm without murmurs, gallops, or rubs. RESPIRATORY: Breath sounds equal bilaterally. No accessory muscle use. GASTROINTESTINAL: Abdomen soft, non-tender, nondistended. MUSCULOSKELETAL: No cyanosis, or edema. BACK: Nontender without obvious deformity. No CVA tenderness. Laboratory Laboratory Tests Test 08/12/16 09:05 White Blood Count 10.6 TH/MM3 Red Blood Count 3.35 MIL/MM3 Hemoglobin 10.2 GM/DL Hematocrit 30.6 % Mean Corpuscular Volume 91.2 FL Mean Corpuscular Hemoglobin 30.5 PG Mean Corpuscular Hemoglobin 33.4 % Concent Red Cell Distribution Width 14.8 % Platelet Count 361 TH/MM3 Mean Platelet Volume 7.9 FL Neutrophils (%) (Auto) 69.7 % Lymphocytes (%) (Auto) 16.5 % Monocytes (%) (Auto) 5.6 % Eosinophils (%) (Auto) 7.2 % Basophils (%) (Auto) 1.0 % Neutrophils # (Auto) 7.4 TH/MM3 Lymphocytes # (Auto) 1.8 TH/MM3 Monocytes # (Auto) 0.6 TH/MM3 Eosinophils # (Auto) 0.8 TH/MM3 Basophils # (Auto) 0.1 TH/MM3 CBC Comment DIFF FINAL Differential Comment Sodium Level 139 MEQ/L Potassium Level 3.5 MEQ/L Chloride Level 107 MEQ/L Carbon Dioxide Level 23.9 MEQ/L Anion Gap 8 MEQ/L Blood Urea Nitrogen 8 MG/DL Creatinine 0.93 MG/DL Estimat Glomerular Filtration 59 ML/MIN Rate Random Glucose 97 MG/DL Calcium Level 8.3 MG/DL Magnesium Level 1.9 MG/DL Assessment and Plan Problem List: (1) SVT (supraventricular tachycardia) (2) Afib Assessment and Plan 1.) Svt resolved, patient refuses coumadin or noac, rec continue aspirin 81 mg qd, wean iv cardizem, start cardizem 30 po q6hr, d/w patient and nurse Juma Priest MD Aug 12, 2016 11:00
[2016-08-12] MEDS: ONDANSETRON HCL 4 MG/2 ML VIAL IVP PRN ×2 (13:58→20:53)
[2016-08-12] MEDS: oxyCODONE/ACETAMINOPHEN 5 MG/325 MG TAB PO PRN (20:54)
[2016-08-12] MEDS: CALAMINE LOTION 180 APPLIC/180 ML BTL TOPICAL PRN (20:55)
[2016-08-13] VITALS (19 sets, daily range): BP systolic 121–154; BP diastolic 45–73; PULSE 60–77; RESP 18; TEMP 97.2–97.9; O2SAT 96–98
[2016-08-13] MEDS: DILTIAZEM HCL 30 MG TAB PO SCH ×3 (00:25→13:03)
[2016-08-13] MEDS: diphenhydrAMINE HCL 25 MG CAP PO PRN (00:25)
[2016-08-13] MEDS: LACTIC ACID (AMMONIUM LACTATE) 12% LOTION 225 GM BTL TOPICAL SCH (09:00)
[2016-08-13] MEDS: COLLAGENASE OINT 30 GM TUBE TOPICAL SCH (09:00)
[2016-08-13] MEDS: SODIUM CHLORIDE 0.9% FLUSH 10 ML FLUSH IV FLUSH SCH (09:00)
[2016-08-13] MEDS: VANCOMYCIN 500 MG VIAL (FOR ORAL USE ONLY) PO SCH ×2 (09:45→13:03)
[2016-08-13] MEDS: ASPIRIN EC 81 MG TABEC PO SCH (09:45)
[2016-08-13] MEDS: CHOLESTYRAMINE 4 GM PACKET PO SCH ×2 (09:45→13:03)
[2016-08-13] MEDS: LACTOBACILLUS ACIDOPHILUS TAB PO SCH ×2 (09:46→13:03)
[2016-08-13] MEDS: POTASSIUM CHLORIDE 10 MEQ CONTROLLED RELEASE TAB PO SCH (09:46)
[2016-08-13] MEDS: HEPARIN SODIUM - SQ 10,000 UNITS/ML VIAL SQ SCH (09:46)
[2016-08-13] MEDS: ONDANSETRON HCL 4 MG/2 ML VIAL IVP PRN (09:58)
[2016-08-13] MEDS: oxyCODONE/ACETAMINOPHEN 5 MG/325 MG TAB PO PRN (09:58)
--- NOTE | 2016-08-13 10:54 | HHI.DS ---
Discharge Summary Admission Date Aug 07, 2016 at 01:54 Discharge Date: Aug 13, 2016 Admitting Diagnosis hypokalemia, SVT (1) SVT (supraventricular tachycardia) (2) Hypokalemia (3) NILAM (acute kidney injury) Procedures No procedures performed. CBC/BMP: 08/12/16 0905 08/13/16 0444 Significant Findings Laboratory Tests Test 08/11/16 08/12/16 08/13/16 05:28 09:05 04:44 White Blood Count 11.7 TH/MM3 (4.0-11.0) Red Blood Count 2.94 MIL/MM3 3.35 MIL/MM3 (4.00-5.30) (4.00-5.30) Hemoglobin 9.0 GM/DL 10.2 GM/DL (11.6-15.3) (11.6-15.3) Hematocrit 26.8 % 30.6 % (35.0-46.0) (35.0-46.0) Eosinophils (%) (Auto) 6.0 % (0.0-4.0) 7.2 % (0.0-4.0) Neutrophils # (Auto) 8.2 TH/MM3 (1.8-7.7) Eosinophils # (Auto) 0.7 TH/MM3 0.8 TH/MM3 (0-0.4) (0-0.4) Chloride Level 108 MEQ/L 111 MEQ/L (98-107) (98-107) Estimat Glomerular Filtration 55 ML/MIN (>89) 59 ML/MIN (>89) 60 ML/MIN (>89) Rate Calcium Level 7.9 MG/DL 8.3 MG/DL 8.3 MG/DL (8.5-10.1) (8.5-10.1) (8.5-10.1) PE at Discharge GENERAL: SKIN: Warm and dry. genrl rash, legs w numerous ankle ulcers b HEAD: Atraumatic. Normocephalic. EYES: Pupils equal and round. No scleral icterus. No injection or drainage. ENT: No nasal bleeding or discharge. Mucous membranes pink and moist. NECK: Trachea midline. No JVD. CARDIOVASCULAR: Regular rate and rhythm. RESPIRATORY: No accessory muscle use. Clear to auscultation. Breath sounds equal bilaterally. GASTROINTESTINAL: Abdomen soft, non-tender, nondistended. Hepatic and splenic margins not palpable. MUSCULOSKELETAL: Extremities without clubbing, cyanosis, or edema. No obvious deformities. NEUROLOGICAL: Awake and alert. No obvious cranial nerve deficits. Motor grossly within normal limits. 2 out of 5 muscle strength in the arms and legs. Normal speech. PSYCHIATRIC: Appropriate mood and affect; insight and judgment normal. Hospital Course 75 Y CF, ADMIT WITH- SEPSIS C DIF LEG CELLULITIS DRUG RASH D/T VANC OR FLAGYL OR NARCOTICS? SVT [facility] AND PLAN WAS TO - IVF'S STOP CARDIZEM GTT, TO PO IV ABX FOR C DIF ID CONSULT FOLLOWUP BLOOD CULTURES SEPSIS R/O, SEE LABS CX'S DR REBOLLEDO CONSULT TO CHECK ABDOMINAL WOUND DEHISCENCE. AM LABS WOUND CONSULT Discharge Disposition: Discharge to SNF Discharge Instructions DIET: Follow Instructions for: Diabetic Diet Activities you can perform: Regular-No Restrictions Follow up Referrals: Cardiology - 08/18/16 with Juma Priest MD PCP Follow-up - 1 Week Surgical - 08/18/16 with Raffi Rebolledo MD New Medications: Vancomycin (Vancocin) 250 Mg Cap 250 MG PO QID Infection #[address] (Aspirin EC) 81 Mg Tabdr 81 MG PO DAILY Prevent Blood Clot #30 TAB Calamine-Zinc Oxide (Calamine 8-8 %) 1 Lot Lot 1 APPLIC TOPICAL Q6H PRN itching Days 30 Ref 11 BOTTLE Cholestyramine (Cholestyramine) 4 Gm/Pkt Powd 4 GM PO TID Bowel Management #30 GM Collagenase (Santyl) 250 Unit/Gm Oin 1 APPLIC TOPICAL DAILY CELLITIS Days 30 Ref 5 TUBE Diltiazem (Cardizem) 30 Mg Tab 30 MG PO Q6H Regulate Heart Beat #120 TAB Diphenhydramine (Diphenhydramine) 25 Mg Cap 25 MG PO Q4H PRN HIVES/ITCHING/ANAPHYLAXIS #30 CAP Lactobacillus Acidophilus (Acidophilus/l-Sporogenes) 1 Tab Tab 1 TAB PO TID Bowel Management #50 TAB Potassium Chloride ER (Klor-Con 10) 10 Meq Tab 20 MEQ PO DAILY Electrolyte Replacement #30 TAB Vancomycin Inj (Vancomycin Inj) 500 Mg Inj 250 MG PO QID CD Days 14 Ref 0 INJECTION Continued Medications: Ascorbic Acid (Vitamin C) 500 Mg Tab 500 MG PO BID Nutritional Supplement Ref 0 TAB Bisacodyl Supp (Dulcolax Supp) 10 Mg Supp 10 MG WI IN AM PRN NO RESUTS FROM MILK OF MAG #12 Ref 0 SUPP Lactic Acid (Ammonium Lactate) (Lac-Hydrin) 12% Lotn 1 APPLIC TOPICAL BID Apply to entire body every day shift #225 Ref 0 ML Magnesium Citrate Liq (Citroma Liq) 300 Ml Liq 300 ML PO IN AM PRN IF NO RESULTS FROM ENEMA #1 Ref 0 BOTTLE Magnesium Hydroxide Liq (Milk of Magnesia Liq) 400 Mg/5 Ml Susp 30 ML PO HS PRN IF NO BM IN 3 DAYS #1 Ref 0 BOTTLE Multiple Vitamin (Multiple Vitamin) 1 Tab 1 TAB PO DAILY Nutritional Supplement Ref 0 TAB Ondansetron (Zofran) 4 Mg Tab 4 MG PO Q4HR PRN NAUSEA OR VOMITING Ref 0 TAB Oxycodone-Acetaminophen (Oxycodone-Acetaminophen) 5-325 mg Tab 1 TAB PO Q4H PRN PAIN #20 TAB Zinc Sulfate (Zinc Sulfate) 220 Mg Tab 220 MG PO DAILY Nutritional Supplement Ref 0 TAB Discontinued Medications: Furosemide (Lasix) 40 Mg Tab 40 MG PO DAILY ROGER Days 90 Ref 0 TAB Potassium Chloride ER (Klor-Con 10) 10 Meq Tab 10 MEQ PO DAILY Electrolyte Replacement #30 Ref 0 TAB Jose Enrique Roberson MD Aug 13, 2016 10:54
[2016-08-13] MEDS ORDERED: DIPH25CA PO (10:59)
[2016-08-13] MEDS ORDERED: COLL30T TOPICAL (10:59)
[2016-08-13] MEDS ORDERED: CALALOT3 TOPICAL (10:59)
[2016-08-13] MEDS ORDERED: VANC500I3 PO (10:59)
[2016-08-13] MEDS ORDERED: VANC1CAP7 PO (11:00)
--- NOTE | 2016-08-13 13:24 | PD.CARD.PN ---
Subjective Subjective Remarks alert in nad Objective Vital Signs / I&O Vital Signs Date Time Temp Pulse Resp B/P Pulse Ox O2 Delivery O2 Flow Rate FiO2 08/13/16 11:00 97.6 68 18 154/54 98 08/13/16 09:28 97.9 68 18 121/45 96 08/13/16 06:00 62 08/13/16 05:00 60 08/13/16 04:00 64 08/13/16 03:00 97.8 70 18 127/63 97 08/13/16 03:00 63 08/13/16 02:00 62 08/13/16 01:00 64 08/13/16 00:00 66 08/12/16 23:00 66 08/12/16 23:00 97.7 67 16 111/44 96 08/12/16 22:00 70 08/12/16 21:00 76 08/12/16 20:00 72 08/12/16 19:00 98.5 72 18 121/54 97 08/12/16 19:00 79 08/12/16 18:00 71 08/12/16 17:06 70 08/12/16 16:18 71 08/12/16 15:30 99.0 73 16 139/54 98 08/12/16 15:00 73 08/12/16 14:00 74 I/O 08/12/16 08/12/16 08/12/16 08/13/16 08/13/16 08/13/16 07:00 15:00 23:00 07:00 15:00 23:00 Intake Total 240 ml 960 ml 240 ml Output Total 400 ml Balance -160 ml 960 ml 240 ml Intake Oral 240 ml 960 ml 240 ml Output Urine Total 400 ml # Voids 5 2 # Bowel Movements 3 Physical Exam GENERAL: SKIN: Warm and dry. HEAD: Normocephalic. EYES: No scleral icterus. No injection or drainage. NECK: Supple, trachea midline. No JVD or lymphadenopathy. CARDIOVASCULAR: Regular rate and rhythm without murmurs, gallops, or rubs. RESPIRATORY: Breath sounds equal bilaterally. No accessory muscle use. GASTROINTESTINAL: Abdomen soft, non-tender, nondistended. MUSCULOSKELETAL: No cyanosis, or edema. BACK: Nontender without obvious deformity. No CVA tenderness. Laboratory Laboratory Tests Test 4/3/17 04:44 Sodium Level 142 MEQ/L Potassium Level 4.0 MEQ/L Chloride Level 111 MEQ/L Carbon Dioxide Level 25.0 MEQ/L Anion Gap 6 MEQ/L Blood Urea Nitrogen 9 MG/DL Creatinine 0.91 MG/DL Estimat Glomerular Filtration 60 ML/MIN Rate Random Glucose 80 MG/DL Calcium Level 8.3 MG/DL Magnesium Level 2.0 MG/DL Assessment and Plan Problem List: (1) SVT (supraventricular tachycardia) (2) Afib Assessment and Plan 1.) Svt resolved, patient refuses coumadin or noac, rec continue aspirin 81 mg qd, wean iv cardizem, start cardizem 30 po q6hr, d/w patient and nurse Juma Priest MD Aug 13, 2016 13:24
== END 2016-08-13 17:49 | DRG 308 ==
LOC: NEPE 23:43 → NEDA 08-07 01:54 → HCIS 08-07 15:01
PROVIDERS: ADMIT Family Medicine; ATTEND Family Medicine
DX: I47.1 Supraventricular tachycardia (principal); A41.4 Sepsis due to anaerobes; N17.9 Acute kidney failure, unspecified; A04.7 Enterocolitis due to Clostridium difficile; K63.2 Fistula of intestine; L03.115 Cellulitis of right lower limb; L03.116 Cellulitis of left lower limb; T81.31XA Disruption of external operation (surgical) wound, not elsewhere classified, initial encounter; E87.6 Hypokalemia; D64.9 Anemia, unspecified; E11.65 Type 2 diabetes mellitus with hyperglycemia; F10.10 Alcohol abuse, uncomplicated; I10 Essential (primary) hypertension; I48.91 Unspecified atrial fibrillation; K43.9 Ventral hernia without obstruction or gangrene; L27.0 Generalized skin eruption due to drugs and medicaments taken internally; L29.9 Pruritus, unspecified; L40.9 Psoriasis, unspecified; Z79.82 Long term (current) use of aspirin
CPT/HCPCS: 71010; 80048; 80053; 82550; 83605; 83735; 84132; 84484; 85025; 85610; 85730; 87040; 87493; 93005; 93971; 96374; J0610; J1644; J2405; J3480; J7030

== ENCOUNTER 2016-10-19 13:45 | Inpatient (IN) | payer MEDICARE, OTHER ==
[~2016-10-19] VITALS: Ht 165.1 cm; Wt 93.1 kg
[~2016-10-19 13:45] MED LIST changes: +ASPI81TA11 PO; +CALALOT3 TOPICAL; +CHOL4POW4 PO; -CIPR-9 PO; +CITRSOL4 PO; +COLL30T TOPICAL; +DILT31TA PO; +DIPH25CA PO; +DULC10SU3 PR; -FURO1TAB60 PO; +LAC-12LO3 TOPICAL; +LACT PO; +MILKSUS PO; +MULTTAB67 PO; +POTA-243 PO; +VANC1CAP7 PO; +VITA500T PO; +ZINC220T PO
[2016-10-19] MEDS ORDERED: VANCOMYCIN INJ 1,000 MG in SODIUM CHLOR 0.9% 250 ML INJ 250 ML IV ONE (14:15)
[2016-10-19 14:33] VITALS: BP 137/60; PULSE 87; RESP 24; TEMP 97.7
[2016-10-19 14:38] VITALS: BP 137/60; PULSE 84; RESP 24; O2SAT 100
[2016-10-19 15:03] LABS: AUTOMATED NEUTROPHIL # 7.8 TH/MM3 (1.8-7.7); BASOPHIL # 0.1 TH/MM3 (0-0.2); BASOPHIL % 0.5 % (0.0-2.0); EOSINOPHIL # 0.5 TH/MM3 (0-0.4); EOSINOPHIL % 4.4 % (0.0-4.0); HEMATOCRIT 29.4 % (35.0-46.0); HEMO FLAGS DIFF FINAL; LYMPH % 16.3 % (9.0-44.0); LYMPHOCYTE # 1.8 TH/MM3 (1.0-4.8); MEAN CELL VOLUME 88.6 FL (80.0-100.0); MEAN CORPUSCULAR HGB CONC 33.9 % (32.0-36.0); MONO % 6.6 % (0.0-8.0); NEUT % 72.2 % (16.0-70.0); PLATELET COUNT 304 TH/MM3 (150-450); RED BLOOD COUNT 3.31 MIL/MM3 (4.00-5.30); RED CELL DISTRIBUTION WIDTH 17.6 % (11.6-17.2); WHITE BLOOD COUNT 10.8 TH/MM3 (4.0-11.0)
--- NOTE | 2016-10-19 15:20 | PD ---
HPI Chief Complaint: Skin Problem Time Seen by Provider: 13:49 Travel History International Travel<30 days: No Contact w/Intl Traveler<30days: No Traveled to known affect area: No History of Present Illness HPI This is a 75-year-old female who evidently has a complex social situation who presents to the emergency department sent in by a her wound care nurses for cellulitis. [facility] healthcare went out to see the patient and were concerned about the appearance of her legs which were weeping and draining some purulent drainage. Right leg is very warm. Patient reports that she was discharged from a half-way late September and since then no once been changing her wounds. She denies any fevers or chills. She is reporting she has pain in her right arm and she's having trouble sitting up but that's been chronic for a year. She is somewhat of a poor historian. PFSH Past Medical History Arthritis: Yes Heart Rhythm Problems: Yes (a fib) Cancer: No Cardiovascular Problems: Yes Diabetes: Yes Patient Takes Glucophage: No Endocrine: No Gastrointestinal Disorders: Yes Genitourinary: No Hypertension: Yes Immune Disorder: No Implanted Vascular Access Dvce: No Musculoskeletal: Yes (right shoulder ROTATOR CUFF/TENDINITIS) Neurologic: Yes Psychiatric: No Reproductive: No Respiratory: No Migraines: Yes Thyroid Disease: Yes Influenza Vaccination: Yes ?: Not : 3 Para: 2 Miscarriage: 1 Past Surgical History Abdominal Surgery: Yes (hernia, gallbladder) Cholecystectomy: Yes Eye Surgery: Yes Other Surgery: Yes Social History Alcohol Use: No Tobacco Use: No Substance Use: No Allergies-Medications (Allergen,Severity, Reaction): Coded Allergies: Flagyl (Verified Allergy, Unknown, Rash, 10/19/16) Reported Meds & Prescriptions Reported Meds & Active Scripts Active Aspirin EC (Aspirin) 81 Mg Tabdr 81 Mg PO DAILY Oxycodone-Acetaminophen 5-325 mg Tab 1 Tab PO Q4H PRN Reported C-500 (Ascorbic Acid) 500 Mg Tab.chew 500 Mg PO BID Amlactin (Lactic Acid (Ammonium Lactate)) 12 % Lot 1 Applic TOPICAL BID Apply to entire body Zinc Sulfate 220 Mg Tab 220 Mg PO DAILY Multiple Vitamin 1 Tab 1 Tab PO DAILY Milk of Magnesia Liq (Magnesium Hydroxide) 400 Mg/5 Ml Susp 30 Ml PO HS PRN Dulcolax Supp (Bisacodyl) 10 Mg Supp 10 Mg NM IN AM PRN Citroma Liq (Magnesium Citrate) 300 Ml Liq 300 Ml PO IN AM PRN Zofran (Ondansetron HCl) 4 Mg Tab 4 Mg PO Q4HR PRN Review of Systems ROS Limitations: Poor Historian Physical Exam Narrative GENERAL: Disheveled, patient leans to the right side SKIN: Erythema and scaling and sloughing of the skin involving the bilateral lower extremities with some weeping, warmth involving the right lower extremity. 3 cm stage I decubitus ulcer along the right buttock HEAD: Atraumatic. Normocephalic. EYES: Pupils equal and round. No injection or drainage. ENT: Moist mucous membranes NECK: Trachea midline. CARDIOVASCULAR: Regular rate and rhythm. No murmur appreciated. RESPIRATORY: Clear to auscultation. Breath sounds equal bilaterally. GASTROINTESTINAL: Abdomen soft, non-tender, nondistended. MUSCULOSKELETAL: No obvious deformities. NEUROLOGICAL: Awake and alert. No obvious cranial nerve deficits. Appears to be weak in the right upper extremity compared to the left. PSYCHIATRIC: Appropriate mood and affect; insight and judgment normal. Data Data Last Documented VS Vital Signs Date Time Temp Pulse Resp B/P Pulse Ox O2 Delivery O2 Flow Rate FiO2 10/19/16 15:52 88 22 135/61 99 Room Air 10/19/16 14:33 97.7 Orders Complete Blood Count With Diff (10/19/16 13:54) Comprehensive Metabolic Panel (10/19/16 13:54) Lactic Acid Sepsis Protocol (10/19/16 13:54) Urinalysis - C+S If Indicated (10/19/16 13:54) Blood Culture (10/19/16 13:54) Blood Glucose (10/19/16 13:54) Ecg Monitoring (10/19/16 13:54) Iv Access Insert/Monitor (10/19/16 13:54) Oximetry (10/19/16 13:54) Oxygen Administration (10/19/16 13:54) Humerus (Min 2vws) (10/19/16 ) Vancomycin Inj (Vancomycin Inj) (10/19/16 14:15) Oxycodone-Acetamin 5-325 Mg (Percocet (10/19/16 16:00) Urine Culture (10/19/16 14:45) Cefepime Inj (Maxipime Inj) (10/19/16 17:15) Admit Order (Ed Use Only) (10/19/16 ) Labs Laboratory Tests Test 10/19/16 10/19/16 14:25 14:45 White Blood Count 10.8 TH/MM3 Red Blood Count 3.31 MIL/MM3 Hemoglobin 9.9 GM/DL Hematocrit 29.4 % Mean Corpuscular Volume 88.6 FL Mean Corpuscular Hemoglobin 30.0 PG Mean Corpuscular Hemoglobin 33.9 % Concent Red Cell Distribution Width 17.6 % Platelet Count 304 TH/MM3 Mean Platelet Volume 8.0 FL Neutrophils (%) (Auto) 72.2 % Lymphocytes (%) (Auto) 16.3 % Monocytes (%) (Auto) 6.6 % Eosinophils (%) (Auto) 4.4 % Basophils (%) (Auto) 0.5 % Neutrophils # (Auto) 7.8 TH/MM3 Lymphocytes # (Auto) 1.8 TH/MM3 Monocytes # (Auto) 0.7 TH/MM3 Eosinophils # (Auto) 0.5 TH/MM3 Basophils # (Auto) 0.1 TH/MM3 CBC Comment DIFF FINAL Differential Comment Sodium Level 146 MEQ/L Potassium Level 3.0 MEQ/L Chloride Level 115 MEQ/L Carbon Dioxide Level 21.0 MEQ/L Anion Gap 10 MEQ/L Blood Urea Nitrogen 22 MG/DL Creatinine 1.18 MG/DL Estimat Glomerular Filtration 45 ML/MIN Rate Random Glucose 101 MG/DL Lactic Acid Level 2.2 mmol/L Calcium Level 8.2 MG/DL Total Bilirubin 0.3 MG/DL Aspartate Amino Transf 28 U/L (AST/SGOT) Alanine Aminotransferase 23 U/L (ALT/SGPT) Alkaline Phosphatase 119 U/L Total Protein 7.5 GM/DL Albumin 2.4 GM/DL Urine Color YELLOW Urine Turbidity HAZY Urine pH 6.0 Urine Specific [place] 1.026 Urine Protein 100 mg/dL Urine Glucose (UA) NEG mg/dL Urine Ketones NEG mg/dL Urine Occult Blood SMALL Urine Nitrite NEG Urine Bilirubin NEG Urine Urobilinogen LESS THAN 2.0 MG/DL Urine Leukocyte Esterase LARGE Urine RBC 14 /hpf Urine WBC 20 /hpf Urine Squamous Epithelial 6 /hpf Cells Urine Hyaline Casts 1 /lpf Urine Mucus FEW /lpf Microscopic Urinalysis Comment CATH-CULTURE IND MDM Medical Decision Making Medical Screen Exam Complete: Yes Emergency Medical Condition: Yes Interpretation(s) Afebrile, no tachycardia, normotensive Anemia Hypernatremia Hypokalemia Lactic acid is 2.2 Differential Diagnosis Cellulitis, sepsis, wound infection, dehydration Narrative Course This is a 75-year-old female who appears fairly unkempt who was brought from her home sent by wound care nurses who were concerned about the appearance of her legs. She was discharged from a half-way several weeks ago and has not had good care since then. She does appear to have a cellulitis of the right lower extremity on exam. Vital signs are reassuring. Patient has some evidence of dehydration on labs. She was given a dose of vancomycin for possible MRSA and cefepime in the setting of history of pseudomonas. I think patient requires observation for IV antibiotics for cellulitis and for wound care consultation. Case management also should be involved as the patient appears disheveled and has early sacral decubitus ulcers on exam. Debbie Chacon MD Oct 19, 2016 15:20
[2016-10-19 15:29] LABS: ALT (GPT) 23 U/L (10-53); ANION GAP 10 MEQ/L (5-15); AST (GOT) 28 U/L (15-37); BLOOD UREA NITROGEN 22 MG/DL (7-18); CHLORIDE 115 MEQ/L (98-107); GLOMERULAR FILTRATION RATE 45 ML/MIN (>89); SODIUM (NA) 146 MEQ/L (136-145)
[2016-10-19 15:31] LABS: ALKALINE PHOSPHATASE 119 U/L (45-117); TOTAL BILIRUBIN ADULT 0.3 MG/DL (0.2-1.0)
[2016-10-19] MEDS ORDERED: LACT12LO4 TOPICAL (15:33)
[2016-10-19] MEDS ORDERED: ASCO1CHW5 PO (15:33)
[2016-10-19 15:52] VITALS: BP 135/61; PULSE 88; RESP 22; O2SAT 99
[2016-10-19 15:53] LABS: BLOOD, URINE SMALL (NEG); GLUCOSE,URINE NEG (NEG); HYALINE CAST, URINE 1 /lpf (RARE); KETONE, URINE NEG (NEG); MUCUS URINE FEW /lpf (OCC); NITRITE,URINE NEG (NEG); SQUAMOUS EPITHELIAL CELL URINE 6 /hpf (0-5); URINE COLOR YELLOW (YELLW/STRAW)
[2016-10-19 15:59] LABS: COMMENT (UR) CATH-CULTURE IND; CULTURE IF INDICATED CATH CULTURE IND
[2016-10-19] MEDS ORDERED: oxyCODONE/ACETAMINOPHEN 5 MG/325 MG TAB PO ONE (16:00)
--- NOTE | 2016-10-19 16:07 | RADRPT ---
EXAM DATE/TIME: 10/19/2016 15:15 [place] COMPARISON: No previous studies available for comparison. INDICATIONS : Right shoulder pain MEDICAL HISTORY : Cardiovascular disease. Atrial Fig, migraines, thyroid disease, GI disorders, Neurologic hx, SURGICAL HISTORY : Cholecystectomy. ENCOUNTER: Initial ACUITY: 1 day PAIN SCORE: Non-responsive. LOCATION: Right humerus FINDINGS: There is deformity of the humeral head without acute fracture. CONCLUSION: Deformity of the humeral head probably from old trauma. I do not see an acute fracture. Isidoro Mrashall MD FACR on October 19, 2016 at 16:02 Board Certified Radiologist. This report was verified electronically.
[2016-10-19 16:53] LABS: LACTIC ACID GHOST NOT REPORTABLE
[2016-10-19] MEDS ORDERED: SODIUM CHLOR 0.9% 1000 ML INJ 1,000 ML IV SCH (17:07)
[2016-10-19] MEDS ORDERED: NALOXONE HCL 0.4 MG/ML AMP IV PRN (17:15)
[2016-10-19] MEDS ORDERED: MAGNESIUM HYDROXIDE SUSP 30 ML CUP PO PRN ×2 (17:15→19:45)
[2016-10-19] MEDS ORDERED: CEFEPIME INJ 2,000 MG in SODIUM CHLORIDE 0.9% INJ 100 ML IV ONE (17:15)
[2016-10-19] MEDS ORDERED: SODIUM CHLORIDE 0.9% FLUSH 10 ML FLUSH IV FLUSH PRN ×2 (17:15→19:45)
[2016-10-19] MEDS ORDERED: POTASSIUM CHLORIDE 20 MEQ CONTROLLED RELEASE TAB PO ONE (17:15)
[2016-10-19] MEDS: HEPARIN SODIUM - SQ 10,000 UNITS/ML VIAL SQ SCH (18:05)
[2016-10-19 19:32] VITALS: O2SAT 99
[2016-10-19] MEDS: SODIUM CHLOR 0.9% 1000 ML INJ 1,000 ML IV SCH ×2 (19:32→21:53)
--- NOTE | 2016-10-19 19:37 | HHI.HP ---
[facility] Jose Enrique Roberson MD Admission Diagnosis cellulitis, dehydration Diagnoses: (1) Cellulitis of lower extremity Diagnosis: Principal (2) NILAM (acute kidney injury) Diagnosis: Principal (3) Lactic acidosis Diagnosis: Principal (4) UTI (urinary tract infection) Diagnosis: Principal (5) Afib Diagnosis: Principal Travel History International Travel<30 Days: No Contact w/Intl Traveler <30 Da: No Traveled to Known Affected Are: No History of Present Illness This is a 75-year-old female with a PMH of A. fib, HTN and Chronic Lower Extremity Wounds who was sent to the ER by her [facility] RN for evaluation of worsening lower extremity cellulitis. Previous admit 08/07-08/13/16 for Sepsis, C Diff, Leg Cellulitis and d/c'd to SNF, states she was d/c'd home from SNF in September and has had persistent drainage from lower extremities. Today, pt seen by [facility] RN and concerned as lower extremities w/ significant weeping/drainage. Denies fever, chills. On arrival, BP 137/60, HR 87, O2 sat 100% on RA, Afebrile. WBC normal, elevated neutrophil count. ESR elevated. CRP elevated at 7.8. K+ 3.0. Creatinine 1.18, previously 0.91 on 08/13/16. Lactic Acid 2.2. UA positive for UTI. Also with complaints of right shoulder pain, Right Humerus X-ray with deformity of humeral head from old trauma, no acute fracture. S/p Urine/Blood Cultures in am, and Vanc/Cefepime. Review of Systems Except as stated in HPI: all other systems reviewed are Neg ROS: 14 point review of systems otherwise negative. Past Family Social History Past Medical History PMH: A. fib, HTN and Chronic Lower Extremity Wounds Past Surgical History PAST SURGICAL HISTORY: Hernia Repair, Cholecystectomy, Eye Surgery Allergies: Coded Allergies: Flagyl (Verified Allergy, Unknown, Rash, 10/19/16) Family History PAST FAMILY HISTORY: Reviewed. No h/o DM or CAD Social History PAST SOCIAL HISTORY: Negative for alcohol, tobacco or drugs. Physical Exam Vital Signs Vital Signs Date Time Temp Pulse Resp B/P Pulse Ox O2 Delivery O2 Flow Rate FiO2 10/19/16 19:32 99 21 10/19/16 17:27 21 10/19/16 15:52 88 22 135/61 99 Room Air 10/19/16 14:38 84 24 137/60 100 Room Air 10/19/16 14:33 97.7 87 24 137/60 Physical Exam PE: GENERAL: Elderly white female in no acute distress. HEENT: PERRLA, EOMI. No scleral icterus or conjunctival pallor. No lid lag or facial droop. CARDIOVASCULAR: Regular rate and rhythm. No obvious murmurs to auscultation. No chest tenderness to palpation. RESPIRATORY: No obvious rhonchi or wheezing. Clear to auscultation. Breath sounds equal bilaterally. GASTROINTESTINAL: Abdomen soft, non-tender, nondistended. BS normal. MUSCULOSKELETAL: Bilateral lower extremities with significant erythema and scaling, weeping. NEUROLOGICAL: Awake, alert and oriented x4. No focal neurologic deficits. Moving both upper and lower extremities spontaneously. Laboratory Laboratory Tests Test 10/19/16 10/19/16 10/19/16 14:25 14:45 18:15 White Blood Count 10.8 Red Blood Count 3.31 Hemoglobin 9.9 Hematocrit 29.4 Mean Corpuscular Volume 88.6 Mean Corpuscular Hemoglobin 30.0 Mean Corpuscular Hemoglobin 33.9 Concent Red Cell Distribution Width 17.6 Platelet Count 304 Mean Platelet Volume 8.0 Neutrophils (%) (Auto) 72.2 Lymphocytes (%) (Auto) 16.3 Monocytes (%) (Auto) 6.6 Eosinophils (%) (Auto) 4.4 Basophils (%) (Auto) 0.5 Neutrophils # (Auto) 7.8 Lymphocytes # (Auto) 1.8 Monocytes # (Auto) 0.7 Eosinophils # (Auto) 0.5 Basophils # (Auto) 0.1 CBC Comment DIFF FINAL Differential Comment Sodium Level 146 Potassium Level 3.0 Chloride Level 115 Carbon Dioxide Level 21.0 Anion Gap 10 Blood Urea Nitrogen 22 Creatinine 1.18 Estimat Glomerular Filtration 45 Rate Random Glucose 101 Lactic Acid Level 2.2 Calcium Level 8.2 Total Bilirubin 0.3 Aspartate Amino Transf 28 (AST/SGOT) Alanine Aminotransferase 23 (ALT/SGPT) Alkaline Phosphatase 119 Total Protein 7.5 Albumin 2.4 Urine Color YELLOW Urine Turbidity HAZY Urine pH 6.0 Urine Specific [place] 1.026 Urine Protein 100 Urine Glucose (UA) NEG Urine Ketones NEG Urine Occult Blood SMALL Urine Nitrite NEG Urine Bilirubin NEG Urine Urobilinogen LESS THAN 2.0 Urine Leukocyte Esterase LARGE Urine RBC 14 Urine WBC 20 Urine Squamous Epithelial 6 Cells Urine Hyaline Casts 1 Urine Mucus FEW Microscopic Urinalysis Comment CATH-CULTURE IND Erythrocyte Sedimentation Rate 76 C-Reactive Protein 7.80 Date/Time Procedure Status Source Growth 10/19/16 14:45 Urine Culture Received Urine Clean Catch Pending 10/19/16 14:30 Aerobic Blood Culture Received Blood Peripheral Pending 10/19/16 14:30 Anaerobic Blood Culture Received Blood Peripheral Pending Result Diagram: 10/19/16 1425 10/19/16 1425 Assessment and Plan Problem List: (1) Cellulitis of lower extremity ICD Code: L03.119 Status: Acute (2) UTI (urinary tract infection) ICD Code: N39.0 Status: Acute (3) Lactic acidosis ICD Code: E87.2 Status: Acute (4) NILAM (acute kidney injury) ICD Code: N17.9 Status: Resolved (5) Hypokalemia ICD Code: E87.6 Status: Resolved (6) Afib ICD Code: I48.91 Status: Acute Assessment and Plan A/P: 1. Lower Extremity Cellulitis: Circumferential. Chronic, Non-healing, now w/ progression. Afebrile, no leukocytosis. S/p Blood Culture in ER, Vanc/ Cefepime. Continue w/ IV Abx, follow up Blood Cultures, Wound Consult for further evaluation. 2. Lactic Acidosis: Lactate 2.2, likely secondary to dehydration rather than sepsis. IVF, repeat lactate now normalized at 1.6. 3. NILAM: Creatinine 1.18, previously 0.91 08/13/16. UA positive for UTI. IVF for hydration, repeat labs in a.m. 4. Hypokalemia: K+ 3.0, s/p replacement in ER, will recheck and replace as needed. 5. A-fib: Chronic. On ASA. Resume home medications. 6. DVT Prophylaxis: Heparin sq 7. Social work for d/c planning as needed. 8. Case discussed w/ ER physician at length Physician Certification 2 Midnight Certification Type: Admission for Inpatient Services Order for Inpatient Services The services are ordered in accordance with Medicare regulations or non- Medicare payer requirements, as applicable. In the case of services not specified as inpatient-only, they are appropriately provided as inpatient services in accordance with the 2-midnight benchmark. Estimated LOS (days): 2 days is the estimated time the patient will need to remain in the hospital, assuming treatment plan goals are met and no additional complications. Post-Hospital Plan: Not yet determined Kalani Huynh MD Oct 19, 2016 19:37
[2016-10-19] MEDS ORDERED: ONDANSETRON HCL 4 MG/2 ML VIAL IVP PRN (19:45)
[2016-10-19] MEDS ORDERED: BISACODYL 10 MG SUPP RECTAL PRN (19:45)
[2016-10-19] MEDS ORDERED: ACETAMINOPHEN 325 MG TAB PO PRN (19:45)
[2016-10-19] MEDS ORDERED: Vancomycin Consult Pharmacy 1 EA OTHER SCH (19:45)
[2016-10-19] MEDS ORDERED: SENNOSIDES 8.6 MG TAB PO PRN (19:45)
[2016-10-19] MEDS ORDERED: LACTULOSE SYRUP 20 GM/30 ML CUP PO PRN (19:45)
[2016-10-19] MEDS ORDERED: MORPHINE SULFATE 4 MG/ML INJ IV PRN (19:45)
[2016-10-19] MEDS: SODIUM CHLORIDE 0.9% FLUSH 10 ML FLUSH IV FLUSH SCH (19:57)
[2016-10-19] MEDS ORDERED: VANCOMYCIN 1,000 MG/NS 250 ML IV ONE ×2 (20:15)
[2016-10-19 21:00] VITALS: PULSE 98
[2016-10-19] MEDS ORDERED: DOCUSATE SODIUM 50 MG/SENNA 8.6 MG TAB PO SCH (21:00)
[2016-10-19] MEDS ORDERED: SODIUM CHLORIDE 0.9% FLUSH 10 ML FLUSH IV FLUSH SCH (21:00)
[2016-10-19] MEDS: ACETAMINOPHEN/HYDROcodone 325 MG/5 MG TAB PO PRN (21:52)
[2016-10-19] MEDS: ASCORBIC ACID 500 MG TAB PO SCH (21:52)
[2016-10-19] MEDS: LACTIC ACID (AMMONIUM LACTATE) 12% LOTION 225 GM BTL TOPICAL SCH (21:52)
[2016-10-19] MEDS: DOCUSATE SODIUM 50 MG/SENNA 8.6 MG TAB PO SCH (21:52)
[2016-10-19 23:23] VITALS: BP 132/75; PULSE 101; RESP 16; TEMP 99.1; O2SAT 97
[2016-10-20] VITALS (8 sets, daily range): BP systolic 91–106; BP diastolic 41–69; PULSE 81–96; RESP 16–22; TEMP 97.9–98.9; O2SAT 94–98
[2016-10-20] MEDS: HEPARIN SODIUM - SQ 10,000 UNITS/ML VIAL SQ SCH ×3 (01:26→17:01)
[2016-10-20] MEDS: CEFEPIME INJ 1,000 MG in SODIUM CHLORIDE 0.9% INJ 100 ML IV SCH ×2 (05:28→17:00)
[2016-10-20] MEDS: ASPIRIN EC 81 MG TABEC PO SCH (07:52)
[2016-10-20] MEDS: ASCORBIC ACID 500 MG TAB PO SCH ×2 (07:53→20:13)
[2016-10-20] MEDS: ZINC SULFATE 220 MG CAP PO SCH (07:53)
[2016-10-20] MEDS: MULTIVITAMIN TAB PO SCH (07:53)
[2016-10-20] MEDS: LACTIC ACID (AMMONIUM LACTATE) 12% LOTION 225 GM BTL TOPICAL SCH ×2 (07:56→20:14)
[2016-10-20] MEDS: DOCUSATE SODIUM 50 MG/SENNA 8.6 MG TAB PO SCH ×2 (08:03→20:13)
[2016-10-20] MEDS: SODIUM CHLORIDE 0.9% FLUSH 10 ML FLUSH IV FLUSH SCH ×2 (08:03→20:15)
[2016-10-20 09:25] LABS: AUTOMATED NEUTROPHIL # 9.2 TH/MM3 (1.8-7.7); BASOPHIL # 0.1 TH/MM3 (0-0.2); BASOPHIL % 0.4 % (0.0-2.0); EOSINOPHIL # 0.2 TH/MM3 (0-0.4); EOSINOPHIL % 1.6 % (0.0-4.0); HEMATOCRIT 26.3 % (35.0-46.0); HEMO FLAGS DIFF FINAL; LYMPH % 13.2 % (9.0-44.0); LYMPHOCYTE # 1.6 TH/MM3 (1.0-4.8); MEAN CELL VOLUME 89.2 FL (80.0-100.0); MEAN CORPUSCULAR HEMOGLOBIN 29.5 PG (27.0-34.0); MEAN CORPUSCULAR HGB CONC 33.1 % (32.0-36.0); MONO % 7.4 % (0.0-8.0); NEUT % 77.4 % (16.0-70.0); PLATELET COUNT 239 TH/MM3 (150-450); RED BLOOD COUNT 2.95 MIL/MM3 (4.00-5.30); RED CELL DISTRIBUTION WIDTH 17.5 % (11.6-17.2); WHITE BLOOD COUNT 11.9 TH/MM3 (4.0-11.0)
[2016-10-20 10:04] LABS: BICARBONATE 15.4 MEQ/L (21.0-32.0); CALCIUM-PROTEIN CORRECTED 8.1 MG/DL (8.5-10.1); TOTAL BILIRUBIN ADULT 0.5 MG/DL (0.2-1.0)
[2016-10-20 10:16] LABS: POTASSIUM 2.7 MEQ/L (3.5-5.1)
[2016-10-20] MEDS: VANCOMYCIN INJ 1,250 MG in SODIUM CHLOR 0.9% 250 ML INJ 250 ML IV SCH (10:50)
[2016-10-20] MEDS ORDERED: POTASSIUM CHLORIDE 20 MEQ CONTROLLED RELEASE TAB PO ONE ×2 (11:00→23:30)
[2016-10-20] MEDS ORDERED: POTASSIUM CHLOR 20 MEQ PREMIX 100 ML IV ONE (11:15)
[2016-10-20] MEDS: ACETAMINOPHEN/HYDROcodone 325 MG/5 MG TAB PO PRN ×2 (11:33→18:12)
[2016-10-20] MEDS: SODIUM CHLOR 0.9% 1000 ML INJ 1,000 ML IV SCH (16:59)
--- NOTE | 2016-10-20 17:10 | HHI.PR ---
Subjective Remarks Patient resting in bed No fever or chills No chest pain Objective Vitals Vital Signs Date Time Temp Pulse Resp B/P Pulse Ox O2 Delivery O2 Flow Rate FiO2 10/20/16 16:00 Room Air 10/20/16 12:00 Room Air 10/20/16 12:00 97.9 81 22 103/56 95 10/20/16 10:25 96 21 10/20/16 08:05 86 10/20/16 08:00 98.6 86 22 106/56 96 10/20/16 08:00 Room Air 10/20/16 04:00 98.7 91 20 104/69 98 10/20/16 00:00 98.9 96 16 99/53 95 10/19/16 23:23 99.1 101 16 132/75 97 10/19/16 21:00 98 10/19/16 19:32 99 21 10/19/16 17:27 21 I/O 10/19/16 10/19/16 10/19/16 10/20/16 10/20/16 10/20/16 07:00 15:00 23:00 07:00 15:00 23:00 Intake Total 203 ml 1527 ml 1278 ml Balance 203 ml 1527 ml 1278 ml Intake Oral 740 ml IV Total 203 ml 787 ml 1278 ml Result Diagram: 10/20/16 0849 10/20/1649 Objective Remarks GENERAL: 75 years old Elderly white female in no acute distress. HEENT: PERRLA, EOMI. No scleral icterus or conjunctival pallor. No lid lag or facial droop. CARDIOVASCULAR: Regular rate and rhythm. 3/6 systolic murmur RESPIRATORY: No obvious rhonchi or wheezing. Clear to auscultation. Breath sounds equal bilaterally. GASTROINTESTINAL: Abdomen soft, non-tender, nondistended. BS normal. MUSCULOSKELETAL: Bilateral lower extremities with significant erythema and scaling, weeping. NEUROLOGICAL: Awake, alert and oriented x4. No focal neurologic deficits. Moving both upper and lower extremities spontaneously. A/P Problem List: (1) Cellulitis of lower extremity ICD Code: L03.119 Status: Acute (2) UTI (urinary tract infection) ICD Code: N39.0 Status: Acute (3) Lactic acidosis ICD Code: E87.2 Status: Acute (4) NILAM (acute kidney injury) ICD Code: N17.9 Status: Resolved (5) Hypokalemia ICD Code: E87.6 Status: Resolved (6) Afib ICD Code: I48.91 Status: Acute Assessment and Plan 1. Lower Extremity Cellulitis: Circumferential. Chronic, Non-healing, now w/ progression. Afebrile, no leukocytosis. Into new Vanc/Cefepime. , follow up Blood Cultures, Wound Consult for further evaluation. 2. Lactic Acidosis: Resolved 3. NILAM: Creatinine improving. UA positive for UTI. IVF for hydration, repeat labs in a.m. 4. Hypokalemia with hypomagnesemia: Replete and recheck labs 5. A-fib: Chronic. On ASA. Resume home medications. 6. DVT Prophylaxis: Heparin sq Natasha Mendenhall MD Oct 20, 2016 17:10
[2016-10-20 20:16] LABS: POTASSIUM 3.1 MEQ/L (3.5-5.1)
[2016-10-20 20:17] LABS: MAGNESIUM 1.5 MG/DL (1.5-2.5)
[2016-10-20] MEDS: MAGNESIUM SULFATE 1 GM PREMIX 100 ML IV SCH (23:28)
[2016-10-20] MEDS: POTASSIUM CHLOR 20 MEQ PREMIX 100 ML IV SCH (23:34)
[2016-10-21] VITALS (7 sets, daily range): BP systolic 94–119; BP diastolic 47–61; PULSE 72–86; RESP 18–20; TEMP 97.3–98.7; O2SAT 97–100
[2016-10-21] MEDS: SODIUM CHLOR 0.9% 1000 ML INJ 1,000 ML IV SCH ×3 (00:37→20:14)
[2016-10-21] MEDS: POTASSIUM CHLOR 20 MEQ PREMIX 100 ML IV SCH (00:38)
[2016-10-21] MEDS: MAGNESIUM SULFATE 1 GM PREMIX 100 ML IV SCH (00:38)
[2016-10-21] MEDS: HEPARIN SODIUM - SQ 10,000 UNITS/ML VIAL SQ SCH ×3 (02:53→17:47)
[2016-10-21] MEDS: CEFEPIME INJ 1,000 MG in SODIUM CHLORIDE 0.9% INJ 100 ML IV SCH ×2 (05:02→17:46)
[2016-10-21] MEDS: ACETAMINOPHEN/HYDROcodone 325 MG/5 MG TAB PO PRN ×4 (05:15→18:51)
[2016-10-21 07:02] LABS: AUTOMATED NEUTROPHIL # 6.9 TH/MM3 (1.8-7.7); BASOPHIL % 0.4 % (0.0-2.0); EOSINOPHIL # 0.3 TH/MM3 (0-0.4); EOSINOPHIL % 3.4 % (0.0-4.0); HEMATOCRIT 25.2 % (35.0-46.0); HEMO FLAGS DIFF FINAL; LYMPH % 15.2 % (9.0-44.0); LYMPHOCYTE # 1.4 TH/MM3 (1.0-4.8); MEAN CORPUSCULAR HEMOGLOBIN 30.1 PG (27.0-34.0); MEAN CORPUSCULAR HGB CONC 33.1 % (32.0-36.0); MONO % 7.4 % (0.0-8.0); NEUT % 73.6 % (16.0-70.0); PLATELET COUNT 197 TH/MM3 (150-450); RED BLOOD COUNT 2.77 MIL/MM3 (4.00-5.30); RED CELL DISTRIBUTION WIDTH 18.1 % (11.6-17.2); WHITE BLOOD COUNT 9.4 TH/MM3 (4.0-11.0)
[2016-10-21 07:25] LABS: BICARBONATE 18.6 MEQ/L (21.0-32.0); MAGNESIUM 2.2 MG/DL (1.5-2.5); POTASSIUM 3.4 MEQ/L (3.5-5.1)
[2016-10-21 07:38] LABS: CALCIUM-PROTEIN CORRECTED 8.1 MG/DL (8.5-10.1)
[2016-10-21] MEDS: DOCUSATE SODIUM 50 MG/SENNA 8.6 MG TAB PO SCH ×2 (09:00→20:06)
[2016-10-21] MEDS: ZINC SULFATE 220 MG CAP PO SCH (09:09)
[2016-10-21] MEDS: MULTIVITAMIN TAB PO SCH (09:09)
[2016-10-21] MEDS: ASPIRIN EC 81 MG TABEC PO SCH (09:09)
[2016-10-21] MEDS: ASCORBIC ACID 500 MG TAB PO SCH ×2 (09:09→20:06)
[2016-10-21] MEDS: SODIUM CHLORIDE 0.9% FLUSH 10 ML FLUSH IV FLUSH SCH ×2 (09:10→20:09)
[2016-10-21] MEDS: LACTIC ACID (AMMONIUM LACTATE) 12% LOTION 225 GM BTL TOPICAL SCH ×2 (09:11→20:09)
[2016-10-21] MEDS: VANCOMYCIN INJ 1,250 MG in SODIUM CHLOR 0.9% 250 ML INJ 250 ML IV SCH (13:23)
--- NOTE | 2016-10-21 16:34 | HHI.PR ---
Subjective Remarks c/o leg pain c/o ankle erythema c/o weakness d/w RN Objective Vitals Vital Signs Date Time Temp Pulse Resp B/P Pulse Ox O2 Delivery O2 Flow Rate FiO2 10/21/16 12:03 77 10/21/16 12:00 97.3 79 20 119/61 100 10/21/16 08:00 98 Room Air 10/21/16 08:00 97.3 81 20 97/52 99 10/21/16 04:00 98.5 86 18 112/51 98 10/21/16 04:00 Room Air 10/21/16 00:00 98.7 84 18 108/52 97 10/21/16 00:00 Room Air 21 10/20/16 20:00 98.3 81 17 91/41 94 10/20/16 20:00 81 10/20/16 19:30 Room Air I/O 10/20/16 10/20/16 10/20/16 10/21/16 10/21/16 10/21/16 06:59 14:59 22:59 06:59 14:59 22:59 Intake Total 1527 ml 550 ml 1578 ml 2026 ml Output Total 150 ml Balance 1527 ml 400 ml 1578 ml 2026 ml Intake Oral 740 ml 550 ml 300 ml 120 ml IV Total 787 ml 1278 ml 1906 ml Output Stool Total 150 ml # Voids 2 3 Result Diagram: 10/21/16 0501 10/21/16 0501 Objective Remarks GENERAL: 75 years old Elderly white female in no acute distress. HEENT: PERRLA, EOMI. No scleral icterus or conjunctival pallor. No lid lag or facial droop. CARDIOVASCULAR: Regular rate and rhythm. 3/6 systolic murmur RESPIRATORY: No obvious rhonchi or wheezing. Clear to auscultation. Breath sounds equal bilaterally. GASTROINTESTINAL: Abdomen soft, non-tender, nondistended. BS normal. MUSCULOSKELETAL: Bilateral lower extremities with significant erythema and scaling, weeping. NEUROLOGICAL: Awake, alert and oriented x4. No focal neurologic deficits. Moving both upper and lower extremities spontaneously. Medications and IVs Current Medications Medications (Trade) Dose Ordered Sig/Cassie Route Start Time Stop Time Status Last Admin (Heparin Inj) 5,000 units Q8H SQ 10/19/16 18:00 10/22/16 09:36 Naloxone HCl 0.4 mg 0.4 mg UNSCH PRN IV 10/19/16 17:15 Pharmacy Profile Note 0 ml @ 0 mls/hr UNSCH OTHER 10/19/16 19:45 Cefepime HCl 1000 mg/Sodium Chloride 100 ml @ 200 mls/hr Q12H IV 10/20/16 06:00 10/22/16 05:31 (NS 1000 ml Inj) 1,000 ml @ 100 mls/hr Q10H IV 10/19/16 19:32 10/22/16 05:38 (NS Flush) 2 ml UNSCH PRN IV FLUSH 10/19/16 19:45 (NS Flush) 2 ml BID IV FLUSH 10/19/16 21:00 10/22/16 09:36 (Zofran Inj) 4 mg Q6H PRN IVP 10/19/16 19:45 (Tylenol) 650 mg Q6H PRN PO 10/19/16 19:45 ([place] 5-325 Mg) 1 tab Q4H PRN PO 10/19/16 19:45 10/22/16 06:54 (Morphine Inj) 2 mg Q3H PRN IV 10/19/16 19:45 (Alysia-Colace) 1 tab BID PO 10/19/16 21:00 10/22/16 09:35 (Milk Of Magnesia Liq) 30 ml Q12H PRN PO 10/19/16 19:45 (Senokot) 17.2 mg Q12H PRN PO 10/19/16 19:45 (Dulcolax Supp) 10 mg DAILY PRN RECTAL 10/19/16 19:45 (Lactulose Liq) 30 ml DAILY PRN PO 10/19/16 19:45 (Ecotrin Ec) 81 mg DAILY PO 10/20/16 09:00 10/22/16 09:35 (Lac-Hydrin 12% Lotion) 1 applic BID TOPICAL 10/19/16 21:00 10/22/16 09:36 (Zinc Sulfate) 220 mg DAILY PO 10/20/16 09:00 10/22/16 09:35 (Vitamin C) 500 mg BID PO 10/19/16 21:00 10/22/16 09:35 Multivitamins 1 tab 1 tab DAILY PO 10/20/16 09:00 10/22/16 09:35 (Vancomycin Inj/ NS 250 ml Inj) 262.5 ml @ 262.5 mls/ hr Q24H IV 10/20/16 11:00 10/21/16 13:23 Miscellaneous Information SPECIFIC LAB TO BE ... ONCE ONCE .XX 10/23/16 10:45 10/23/16 10:46 (Tums Chew) 500 mg Q12HR CHEW 10/21/16 21:00 10/24/16 20:59 10/22/16 09:35 (Mycostatin Powder) 1 applic Q12HR TOPICAL 10/21/16 21:00 11/04/16 20:59 10/22/16 09:36 A/P Problem List: (1) Cellulitis of lower extremity ICD Code: L03.119 Status: Acute (2) UTI (urinary tract infection) ICD Code: N39.0 Status: Acute (3) Lactic acidosis ICD Code: E87.2 Status: Acute (4) NILAM (acute kidney injury) ICD Code: N17.9 Status: Resolved (5) Hypokalemia ICD Code: E87.6 Status: Resolved (6) Afib ICD Code: I48.91 Status: Acute Assessment and Plan 1. Lower Extremity Cellulitis: Circumferential. Chronic, Non-healing, now w/ progression. Afebrile, no leukocytosis. Into new Vanc/Cefepime. , follow up Blood Cultures negative so far, Wound Consult for further evaluation. 2. Lactic Acidosis: Resolved 3. NILAM: Creatinine improving. UA positive for UTI but urine culture unremarkable. IVF for hydration, monitor BMP 4. Hypokalemia with hypomagnesemia: Replete and recheck labs, 5. A-fib: Chronic. On ASA. Resume home medications. 6. DVT Prophylaxis: Heparin sq Natasha Mendenhall MD Oct 21, 2016 16:34 Jose Enrique Roberson MD Oct 22, 2016 09:59
[2016-10-21] MEDS ORDERED: POTASSIUM CHLORIDE 10 MEQ CONTROLLED RELEASE TAB PO ONE (19:45)
[2016-10-21] MEDS ORDERED: CALCIUM CARBONATE 500 MG CHEWABLE TAB CHEW ONE (19:45)
[2016-10-21] MEDS: CALCIUM CARBONATE 500 MG CHEWABLE TAB CHEW SCH (20:09)
[2016-10-21] MEDS: NYSTATIN 100,000 U/GM PWD 15 GM BTL TOPICAL SCH (20:26)
[2016-10-22] VITALS (8 sets, daily range): BP systolic 95–135; BP diastolic 49–61; PULSE 73–85; RESP 18–20; TEMP 97.3–98.5; O2SAT 96–99
[2016-10-22] MEDS: HEPARIN SODIUM - SQ 10,000 UNITS/ML VIAL SQ SCH ×3 (02:03→17:11)
[2016-10-22] MEDS: ACETAMINOPHEN/HYDROcodone 325 MG/5 MG TAB PO PRN ×4 (02:08→20:32)
[2016-10-22] MEDS: CEFEPIME INJ 1,000 MG in SODIUM CHLORIDE 0.9% INJ 100 ML IV SCH ×2 (05:31→17:08)
[2016-10-22] MEDS: SODIUM CHLOR 0.9% 1000 ML INJ 1,000 ML IV SCH (05:38)
--- NOTE | 2016-10-22 07:16 | HHI.FPPN ---
Subjective Remarks c/o leg pain c/o erythema of legs c/o weakness d/w RN Objective Vitals Vital Signs Date Time Temp Pulse Resp B/P Pulse Ox O2 Delivery O2 Flow Rate FiO2 10/22/16 04:00 97.8 78 18 104/49 98 10/22/16 00:00 97.8 76 18 95/52 96 10/22/16 00:00 Room Air 10/21/16 20:00 Room Air 10/21/16 20:00 97.7 78 18 104/48 100 10/21/16 20:00 78 10/21/16 16:00 97.5 72 18 94/47 100 10/21/16 12:03 77 10/21/16 12:00 97.3 79 20 119/61 100 10/21/16 08:00 98 Room Air 10/21/16 08:00 97.3 81 20 97/52 99 I/O 10/21/16 10/21/16 10/21/16 10/22/16 10/22/16 10/22/16 07:00 15:00 23:00 07:00 15:00 23:00 Intake Total 2026 ml 950 ml 480 ml 240 ml Output Total 350 ml Balance 2026 ml 600 ml 480 ml 240 ml Intake Oral 120 ml 950 ml 480 ml 240 ml IV Total 1906 ml Output Stool Total 350 ml # Voids 3 3 1 3 # Bowel Movements 0 1 Result Diagram: 10/21/16 0501 10/21/16 0501 Objective Remarks GENERAL: SKIN: Warm and dry. large ulcers b LE's HEAD: Atraumatic. Normocephalic. EYES: Pupils equal and round. No scleral icterus. No injection or drainage. ENT: No nasal bleeding or discharge. Mucous membranes pink and moist. NECK: Trachea midline. No JVD. CARDIOVASCULAR: Regular rate and rhythm. RESPIRATORY: No accessory muscle use. Clear to auscultation. Breath sounds equal bilaterally. GASTROINTESTINAL: Abdomen soft, non-tender, nondistended. Hepatic and splenic margins not palpable. MUSCULOSKELETAL: Extremities without clubbing, cyanosis, or edema. No obvious deformities. NEUROLOGICAL: Awake and alert. No obvious cranial nerve deficits. Motor grossly within normal limits. Five out of 5 muscle strength in the arms and legs. Normal speech. PSYCHIATRIC: Appropriate mood and affect; insight and judgment normal. Medications and IVs Current Medications Medications (Trade) Dose Ordered Sig/Cassie Route Start Time Stop Time Status Last Admin (Heparin Inj) 5,000 units Q8H SQ 10/19/16 18:00 10/22/16 09:36 Naloxone HCl 0.4 mg 0.4 mg UNSCH PRN IV 10/19/16 17:15 Pharmacy Profile Note 0 ml @ 0 mls/hr UNSCH OTHER 10/19/16 19:45 Cefepime HCl 1000 mg/Sodium Chloride 100 ml @ 200 mls/hr Q12H IV 10/20/16 06:00 10/22/16 05:31 (NS 1000 ml Inj) 1,000 ml @ 100 mls/hr Q10H IV 10/19/16 19:32 10/22/16 05:38 (NS Flush) 2 ml UNSCH PRN IV FLUSH 10/19/16 19:45 (NS Flush) 2 ml BID IV FLUSH 10/19/16 21:00 10/22/16 09:36 (Zofran Inj) 4 mg Q6H PRN IVP 10/19/16 19:45 (Tylenol) 650 mg Q6H PRN PO 10/19/16 19:45 ([place] 5-325 Mg) 1 tab Q4H PRN PO 10/19/16 19:45 10/22/16 06:54 (Morphine Inj) 2 mg Q3H PRN IV 10/19/16 19:45 (Alysia-Colace) 1 tab BID PO 10/19/16 21:00 10/22/16 09:35 (Milk Of Magnesia Liq) 30 ml Q12H PRN PO 10/19/16 19:45 (Senokot) 17.2 mg Q12H PRN PO 10/19/16 19:45 (Dulcolax Supp) 10 mg DAILY PRN RECTAL 10/19/16 19:45 (Lactulose Liq) 30 ml DAILY PRN PO 10/19/16 19:45 (Ecotrin Ec) 81 mg DAILY PO 10/20/16 09:00 10/22/16 09:35 (Lac-Hydrin 12% Lotion) 1 applic BID TOPICAL 10/19/16 21:00 10/22/16 09:36 (Zinc Sulfate) 220 mg DAILY PO 10/20/16 09:00 10/22/16 09:35 (Vitamin C) 500 mg BID PO 10/19/16 21:00 10/22/16 09:35 Multivitamins 1 tab 1 tab DAILY PO 10/20/16 09:00 10/22/16 09:35 (Vancomycin Inj/ NS 250 ml Inj) 262.5 ml @ 262.5 mls/ hr Q24H IV 10/20/16 11:00 10/21/16 13:23 Miscellaneous Information SPECIFIC LAB TO BE ... ONCE ONCE .XX 10/23/16 10:45 10/23/16 10:46 (Tums Chew) 500 mg Q12HR CHEW 10/21/16 21:00 10/24/16 20:59 10/22/16 09:35 (Mycostatin Powder) 1 applic Q12HR TOPICAL 10/21/16 21:00 11/04/16 20:59 10/22/16 09:36 A/P Assessment and Plan 1. Lower Extremity Cellulitis: Circumferential. Chronic, Non-healing, now w/ progression. Afebrile, no leukocytosis. Vanc/Cefepime. follow up Blood Cultures negative so far, Wound Consult for further evaluation. 2. Lactic Acidosis: Resolved 3. NILAM: Creatinine improving. UA positive for UTI but urine culture unremarkable. IVF for hydration, monitor BMP 4. Hypokalemia with hypomagnesemia: recheck labs, 5. A-fib: Chronic. On ASA. Resume home medications. 6. DVT Prophylaxis: Heparin sq Jose Enrique Roberson MD Oct 22, 2016 07:16
[2016-10-22] MEDS: ASCORBIC ACID 500 MG TAB PO SCH ×2 (09:35→20:31)
[2016-10-22] MEDS: MULTIVITAMIN TAB PO SCH (09:35)
[2016-10-22] MEDS: ASPIRIN EC 81 MG TABEC PO SCH (09:35)
[2016-10-22] MEDS: DOCUSATE SODIUM 50 MG/SENNA 8.6 MG TAB PO SCH ×2 (09:35→20:31)
[2016-10-22] MEDS: ZINC SULFATE 220 MG CAP PO SCH (09:35)
[2016-10-22] MEDS: CALCIUM CARBONATE 500 MG CHEWABLE TAB CHEW SCH ×2 (09:35→20:31)
[2016-10-22] MEDS: SODIUM CHLORIDE 0.9% FLUSH 10 ML FLUSH IV FLUSH SCH ×2 (09:36→20:31)
[2016-10-22] MEDS: NYSTATIN 100,000 U/GM PWD 15 GM BTL TOPICAL SCH ×2 (09:36→20:33)
[2016-10-22] MEDS: LACTIC ACID (AMMONIUM LACTATE) 12% LOTION 225 GM BTL TOPICAL SCH ×2 (09:36→20:33)
[2016-10-22] MEDS: VANCOMYCIN INJ 1,250 MG in SODIUM CHLOR 0.9% 250 ML INJ 250 ML IV SCH (12:27)
--- NOTE | 2016-10-22 15:09 | PD.WCN.NOT ---
Wound Consult Description: Patient seen on [address] [place] [address] for evaluation of bilateral lower extremity wounds. Removed rolled gauze, 4x4 gauze and optilock dressings in place on L leg to reveal diffuse full and partial thickness wounds with minimal to moderate sero- sanguinous drainage. Largest wound is located on the lower L ledesma extending posteriorly. Wound measures ~7 x ~18 x ~0.1 and presents as a full thickness wound, with ~50% pink and ~50% yellow tissue. Cleansed wounds to L leg with wound cleanser. Applied oil emulsion gauze in single layer just over wound beds to all wounds. Covered all wounds with optilock dressings and secured dressing with rolled gauze and tape. Removed rolled gauze, dry 4x4 gauze and optilock dressing in place to reveal diffuse full and partial thickness wounds to R dorsal foot, R lateral heel, R medial ankle and R lower leg. Full thickness wounds presents with ~50% pink tissue and ~50% yellow tissue. Wounds located on R dorsal foot and R medial ankle present as full thickness,with moderate serous drainage.Wound to R lateral heel presents as partial thickness, with moderate sero-sanguinous drainage. Wounds to R ledesma present as partial thickness with minimal serous drainage. Cleansed all wounds on the R lower extremity with wound cleanser and applied oil emulsion gauze over wound beds and covered moderately draining wounds with optilock dressings. All minimally draining wounds were covered with dry 4x4 gauze. Secured all dressings with rolled gauze and tape. Patient turned to R side with assistance from engineering writer for skin assessment of buttock area. Patient noted with small partial thickness fissure to medial gluteal cleft and small area of partial thickness skin loss to L buttock area. Periwound noted with blanchable erythema and denuded skin. Partial thickness wounds are not related to pressure. Etiology of wounds is most likely Incontinence associated. Applied thick layer of Calazime barrier cream and left wounds open to air. Communicated with: Communicated recommendations with EVERETTE loredo and Doctor Mendenhall Recommendation: Recommend to cleanse wounds to bilateral lower extremities with wound cleanser. Apply single layer of oil emulsion gauze just over wound beds of all wounds. Cover moderately draining wounds with optilock dressings. Cover all minimally draining wounds with dry 4x4 gauze. Secure all dressings with rolled gauze and tape. Please change dressings to bilateral lower extremities every 2 days or PRN if saturated or dislodged. Please keep patient's legs elevated while in bed or in chair. Please cleanse buttock area gently with soap and water and apply Calazime barrier cream generously BID and PRN. Please turn patient every 2 hours and PRN for comfort. Lorie Farr [facility] Oct 22, 2016 15:09
[2016-10-23] VITALS: BP 117/58; PULSE 78; RESP 18; TEMP 98.4; O2SAT 99
[2016-10-23] MEDS: HEPARIN SODIUM - SQ 10,000 UNITS/ML VIAL SQ SCH ×2 (01:30→09:07)
[2016-10-23] MEDS: ACETAMINOPHEN/HYDROcodone 325 MG/5 MG TAB PO PRN ×2 (01:34→09:20)
[2016-10-23 04:00] VITALS: BP 111/62; PULSE 74; RESP 18; TEMP 98.1; O2SAT 98
[2016-10-23] MEDS: CEFEPIME INJ 1,000 MG in SODIUM CHLORIDE 0.9% INJ 100 ML IV SCH (05:08)
[2016-10-23 06:23] LABS: AUTOMATED NEUTROPHIL # 5.2 TH/MM3 (1.8-7.7); BASOPHIL % 0.4 % (0.0-2.0); EOSINOPHIL # 0.4 TH/MM3 (0-0.4); EOSINOPHIL % 5.1 % (0.0-4.0); HEMATOCRIT 27.5 % (35.0-46.0); HEMO FLAGS DIFF FINAL; LYMPHOCYTE # 2.2 TH/MM3 (1.0-4.8); MEAN CELL VOLUME 90.1 FL (80.0-100.0); MEAN CORPUSCULAR HEMOGLOBIN 29.8 PG (27.0-34.0); MEAN CORPUSCULAR HGB CONC 33.1 % (32.0-36.0); MONO % 7.7 % (0.0-8.0); NEUT % 60.8 % (16.0-70.0); PLATELET COUNT 276 TH/MM3 (150-450); RED BLOOD COUNT 3.05 MIL/MM3 (4.00-5.30); RED CELL DISTRIBUTION WIDTH 17.8 % (11.6-17.2); WHITE BLOOD COUNT 8.6 TH/MM3 (4.0-11.0)
[2016-10-23 06:41] LABS: BICARBONATE 18.6 MEQ/L (21.0-32.0); POTASSIUM 3.3 MEQ/L (3.5-5.1)
[2016-10-23 08:00] VITALS: BP 120/62; PULSE 73; PULSE 77; RESP 20; TEMP 97.8; O2SAT 87
[2016-10-23] MEDS: NYSTATIN 100,000 U/GM PWD 15 GM BTL TOPICAL SCH (09:00)
[2016-10-23] MEDS: LACTIC ACID (AMMONIUM LACTATE) 12% LOTION 225 GM BTL TOPICAL SCH (09:00)
[2016-10-23] MEDS: DOCUSATE SODIUM 50 MG/SENNA 8.6 MG TAB PO SCH (09:00)
[2016-10-23] MEDS: CALCIUM CARBONATE 500 MG CHEWABLE TAB CHEW SCH (09:07)
[2016-10-23] MEDS: MULTIVITAMIN TAB PO SCH (09:07)
[2016-10-23] MEDS: ASCORBIC ACID 500 MG TAB PO SCH (09:07)
[2016-10-23] MEDS: ASPIRIN EC 81 MG TABEC PO SCH (09:07)
[2016-10-23] MEDS: ZINC SULFATE 220 MG CAP PO SCH (09:07)
[2016-10-23] MEDS: SODIUM CHLORIDE 0.9% FLUSH 10 ML FLUSH IV FLUSH SCH (09:20)
[2016-10-23] MEDS ORDERED: PHARMACY ORDERED LAB ONE (10:45)
--- NOTE | 2016-10-23 10:48 | HHI.DCPOC ---
Discharge Care Plan Diagnosis: (1) Bilateral cellulitis of lower leg (2) Sepsis affecting skin (3) Hypokalemia (4) Afib (5) NILAM (acute kidney injury) Goals to Promote Your Health * To prevent worsening of your condition and complications * To maintain your health at the optimal level Directions to Meet Your Goals Take your medications as prescribed Follow your dietary instruction Follow activity as directed Keep your appointments as scheduled Take your immunizations and boosters as scheduled If your symptoms worsen call your PCP, if no PCP go to Urgent Care Center or Emergency Room Smoking is Dangerous to Your Health. Avoid second hand smoke Call the 24-hour hour crisis hotline for domestic abuse at Jose Enrique Roberson MD Oct 23, 2016 10:48
--- NOTE | 2016-10-23 10:49 | HHI.DS ---
Discharge Summary Admission Date Oct 19, 2016 at 19:07 Discharge Date: Oct 23, 2016 Admitting Diagnosis cellulitis, dehydration (1) Cellulitis of lower extremity (2) UTI (urinary tract infection) (3) Lactic acidosis (4) NILAM (acute kidney injury) (5) Hypokalemia (6) Afib CBC/BMP: 10/23/16 0554 10/23/16 0554 Significant Findings Laboratory Tests Test 10/20/16 10/21/16 10/23/16 19:35 05:01 05:54 Potassium Level 3.1 MEQ/L 3.4 MEQ/L 3.3 MEQ/L (3.5-5.1) (3.5-5.1) (3.5-5.1) Red Blood Count 2.77 MIL/MM3 3.05 MIL/MM3 (4.00-5.30) (4.00-5.30) Hemoglobin 8.3 GM/DL 9.1 GM/DL (11.6-15.3) (11.6-15.3) Hematocrit 25.2 % 27.5 % (35.0-46.0) (35.0-46.0) Red Cell Distribution Width 18.1 % 17.8 % (11.6-17.2) (11.6-17.2) Neutrophils (%) (Auto) 73.6 % (16.0-70.0) Sodium Level 146 MEQ/L (136-145) Chloride Level 119 MEQ/L 117 MEQ/L (98-107) (98-107) Carbon Dioxide Level 18.6 MEQ/L 18.6 MEQ/L (21.0-32.0) (21.0-32.0) Estimat Glomerular Filtration 58 ML/MIN (>89) 50 ML/MIN (>89) Rate Calcium Level 7.4 MG/DL 7.9 MG/DL (8.5-10.1) (8.5-10.1) Protein Corrected Calcium 8.1 MG/DL (8.5-10.1) Total Protein 5.9 GM/DL (6.4-8.2) Eosinophils (%) (Auto) 5.1 % (0.0-4.0) Creatinine 1.07 MG/DL (0.50-1.00) PE at Discharge GENERAL: SKIN: Warm and dry. large ulcers of legs HEAD: Atraumatic. Normocephalic. EYES: Pupils equal and round. No scleral icterus. No injection or drainage. ENT: No nasal bleeding or discharge. Mucous membranes pink and moist. NECK: Trachea midline. No JVD. CARDIOVASCULAR: Regular rate and rhythm. RESPIRATORY: No accessory muscle use. Clear to auscultation. Breath sounds equal bilaterally. GASTROINTESTINAL: Abdomen soft, non-tender, nondistended. Hepatic and splenic margins not palpable. MUSCULOSKELETAL: Extremities without clubbing, cyanosis, or edema. No obvious deformities. NEUROLOGICAL: Awake and alert. No obvious cranial nerve deficits. Motor grossly within normal limits. 1 out of 5 muscle strength in the arms and legs. Normal speech. PSYCHIATRIC: Appropriate mood and affect; insight and judgment normal. Hospital Course 75 y cf, admit w leg cellulitis has hx c dif. hospital course and plan was to - 1. Lower Extremity Cellulitis: Circumferential. Chronic, Non-healing, now w/ progression. Afebrile, no leukocytosis. Vanc/Cefepime. follow up Blood Cultures negative so far, Wound Consult for further evaluation. 2. Lactic Acidosis: Resolved 3. NILAM: Creatinine improving. UA positive for UTI but urine culture unremarkable. IVF for hydration, monitor BMP 4. Hypokalemia with hypomagnesemia: recheck labs, 5. A-fib: Chronic. On ASA. Resume home medications. 6. DVT Prophylaxis: Heparin sq dc to snf Discharge Disposition: Discharge to SNF Discharge Instructions DIET: Follow Instructions for: As Tolerated, No Restrictions Activities you can perform: Regular-No Restrictions Follow up Referrals: PCP Follow-up - 2-3 Days New Medications: Metronidazole (Flagyl) 500 Mg Tab 500 MG PO TID Infection Days 10 Ref 0 TAB Continued Medications: Ascorbic Acid (C-500) 500 Mg Tab.chew 500 MG PO BID Nutritional Supplement Aspirin DR (Aspirin EC) 81 Mg Tabdr 81 MG PO DAILY Prevent Blood Clot #30 TAB Bisacodyl Supp (Dulcolax Supp) 10 Mg Supp 10 MG NM IN AM PRN NO RESUTS FROM MILK OF MAG #12 Ref 0 SUPP Lactic Acid (Ammonium Lactate) (Amlactin) 12 % Lot 1 APPLIC TOPICAL BID Apply to entire body Magnesium Citrate Liq (Citroma Liq) 300 Ml Liq 300 ML PO IN AM PRN IF NO RESULTS FROM ENEMA #1 Ref 0 BOTTLE Magnesium Hydroxide Liq (Milk of Magnesia Liq) 400 Mg/5 Ml Susp 30 ML PO HS PRN IF NO BM IN 3 DAYS #1 Ref 0 BOTTLE Multiple Vitamin (Multiple Vitamin) 1 Tab 1 TAB PO DAILY Nutritional Supplement Ref 0 TAB Ondansetron (Zofran) 4 Mg Tab 4 MG PO Q4HR PRN NAUSEA OR VOMITING Ref 0 TAB Zinc Sulfate (Zinc Sulfate) 220 Mg Tab 220 MG PO DAILY Nutritional Supplement Ref 0 TAB Discontinued Medications: Oxycodone-Acetaminophen (Oxycodone-Acetaminophen) 5-325 mg Tab 1 TAB PO Q4H PRN PAIN #20 TAB Jose Enrique Roberson MD Oct 23, 2016 10:49
[2016-10-23] MEDS ORDERED: METR-1 PO (10:52)
[2016-10-23] MEDS ORDERED: POTASSIUM CHLORIDE 20 MEQ CONTROLLED RELEASE TAB PO ONE (11:00)
[2016-10-23] MEDS: VANCOMYCIN INJ 1,250 MG in SODIUM CHLOR 0.9% 250 ML INJ 250 ML IV SCH (11:01)
[2016-10-23 12:00] VITALS: BP 128/56; PULSE 80; RESP 20; TEMP 98; O2SAT 97
[2016-10-23 15:07] LABS: C. DIFF EPI 027 PRESUMPTIVE NEGATIVE (NEGATIVE); C. DIFF TOXIN PCR NEGATIVE (NEGATIVE)
== END 2016-10-23 15:17 | DRG 603 ==
LOC: NEPC 13:45 → NEDA 17:08 → OBSVTOIN 19:07 → N04A 21:24
PROVIDERS: ADMIT Family Medicine; ATTEND Family Medicine
DX: L03.115 Cellulitis of right lower limb (principal); N17.9 Acute kidney failure, unspecified; L89.159 Pressure ulcer of sacral region, unspecified stage; E87.2 Acidosis; N39.0 Urinary tract infection, site not specified; I48.2 Chronic atrial fibrillation; E86.0 Dehydration; I10 Essential (primary) hypertension; E87.6 Hypokalemia; M25.511 Pain in right shoulder; L98.499 Non-pressure chronic ulcer of skin of other sites with unspecified severity
CPT/HCPCS: 73060; 80048; 80053; 80202; 81001; 82948; 83605; 83735; 84132; 84155; 85025; 85652; 86140; 87040; 87086; 87493; 96365; J0692; J1644; J3370; J3475; J3480; J7030; J7050

== ENCOUNTER 2016-11-02 17:49 | Emergency (ER) | payer MEDICARE, OTHER ==
[~2016-11-02] VITALS: Ht 165.1 cm; Wt 85.0 kg
[~2016-11-02 17:49] MED LIST changes: +ASCO1CHW5 PO; -CALALOT3 TOPICAL; -CHOL4POW4 PO; -COLL30T TOPICAL; -DILT31TA PO; -DIPH25CA PO; -LAC-12LO3 TOPICAL; -LACT PO; +LACT12LO4 TOPICAL; +METR-1 PO; -OXYC1TAB63 PO; -POTA-243 PO; -VANC1CAP7 PO; -VITA500T PO
[2016-11-02 17:58] VITALS: BP 111/59; PULSE 156; RESP 20; TEMP 98.2; O2SAT 96
[2016-11-02] MEDS ORDERED: SODIUM CHLOR 0.9% 1000 ML INJ 1,000 ML IV SCH (18:13)
[2016-11-02] MEDS ORDERED: DILTIAZEM HCL 25 MG/5 ML VIAL ONE (18:14)
[2016-11-02] MEDS ORDERED: DILTIAZEM HCL 25 MG/5 ML VIAL IV ONE (18:15)
[2016-11-02] MEDS ORDERED: SODIUM CHLORIDE 0.9% FLUSH 10 ML FLUSH IVF PRN (18:15)
--- NOTE | 2016-11-02 18:15 | PD ---
HPI Chief Complaint: Cardiac Complaint Time Seen by Provider: 18:15 Travel History International Travel<30 days: No Contact w/Intl Traveler<30days: No Traveled to known affect area: No History of Present Illness HPI 75-year-old female with a history of hypertension, atrial fibrillation, chronic lower extremity wounds, hypothyroidism is brought to the emergency department from her group home facility for evaluation of SVT. The patient states that this has happened to her in the past and she felt her heart rate rising earlier this morning. States that she feels palpitations and as though her heart is racing. States she also feels weak. She denies any chest pain, shortness of breath, lightheadedness, dizziness, nausea, vomiting, fever, chills, swelling of the extremities. No modifying factors. No other complaints. PFSH Past Medical History Arthritis: Yes Heart Rhythm Problems: Yes (a fib) Cancer: No Cardiovascular Problems: Yes (afib) Diabetes: Yes Endocrine: Yes Gastrointestinal Disorders: Yes Genitourinary: Yes Hypertension: Yes Immune Disorder: No Implanted Vascular Access Dvce: No Musculoskeletal: Yes (right shoulder ROTATOR CUFF/TENDINITIS) Neurologic: Yes Psychiatric: No Reproductive: No Respiratory: No Migraines: Yes Thyroid Disease: Yes ?: Not : 3 Para: 2 Miscarriage: 1 Past Surgical History Abdominal Surgery: Yes (hernia, gallbladder) Cholecystectomy: Yes Eye Surgery: Yes Hysterectomy: No Other Surgery: Yes Social History Alcohol Use: No Tobacco Use: No Substance Use: No Allergies-Medications (Allergen,Severity, Reaction): Coded Allergies: Flagyl (Verified Allergy, Unknown, Rash, 11/02/16) Reported Meds & Prescriptions Reported Meds & Active Scripts Active Levaquin (Levofloxacin) 750 Mg Tablet 750 Tab PO DAILY 7 Days Aspirin EC (Aspirin) 81 Mg Tabdr 81 Mg PO DAILY Reported Gentamicin Topical 0.1% Cream 1 Applic TOPICAL ONCE Apply to affected area(s) Diltiazem ER 24 HR 240 Mg Delores 240 Mg PO DAILY Amlactin (Lactic Acid (Ammonium Lactate)) 12 % Lot 1 Applic TOPICAL BID Apply to entire body Zinc Sulfate 220 Mg Tab 220 Mg PO DAILY Multiple Vitamin 1 Tab 1 Tab PO DAILY Review of Systems Except as stated in HPI: all other systems reviewed are Neg Physical Exam Narrative GENERAL: Well-nourished and well-developed pleasant elderly female patient in no acute distress. SKIN: Warm and dry. Chronic lower extremity erythematous wounds. HEAD: Normocephalic and atraumatic. EYES: No injection, drainage, or hyphema noted. PERRLA. EOMI. ENT: No nasal drainage noted. Oropharynx is clear. NECK: Supple and the trachea is midline. CARDIOVASCULAR: Tachycardic. Regular rhythm. RESPIRATORY: Breath sounds are equal bilaterally with no accessory muscle use, wheezing, rhonchi, or crackles. GASTROINTESTINAL: Abdomen is soft, non-tender, and nondistended. MUSCULOSKELETAL: No obvious deformities, swelling, cyanosis, or ecchymosis is present throughout the upper and lower extremities. Patient has full range of motion without any signs of neurovascular compromise. NEUROLOGICAL: Awake, alert, and oriented. Normal speech and gait. Cranial nerves are grossly intact. Data Data Last Documented VS Vital Signs Date Time Temp Pulse Resp B/P Pulse Ox O2 Delivery O2 Flow Rate FiO2 11/02/16 19:00 74 16 106/42 95 Room Air 11/02/16 17:58 98.2 Orders Electrocardiogram (11/02/16 18:13) B-Type Natriuretic Peptide (11/02/16 18:13) Ckmb (Isoenzyme) Profile (11/02/16 18:13) Complete Blood Count With Diff (11/02/16 18:13) Comprehensive Metabolic Panel (11/02/16 18:13) Magnesium (Mg) (11/02/16 18:13) Prothrombin Time / Inr (Pt) (11/02/16 18:13) Act Partial Throm Time (Ptt) (11/02/16 18:13) Troponin I (11/02/16 18:13) Chest, Single Ap (11/02/16 18:13) Ecg Monitoring (11/02/16 18:13) Bilateral Bp Monitoring (11/02/16 18:13) Iv Access Insert/Monitor (11/02/16 18:13) Oximetry (11/02/16 18:13) Oxygen Administration (11/02/16 18:13) Sodium Chloride 0.9% Flush (Ns Flush) (11/02/16 18:15) Sodium Chlor 0.9% 1000 Ml Inj (Ns 1000 M (11/02/16 18:13) Diltiazem Inj (Cardizem Inj) (11/02/16 18:15) Diltiazem Inj (Cardizem Inj) (11/02/16 18:14) Levofloxacin (Levaquin) (11/02/16 19:45) Labs Laboratory Tests Test 11/02/16 18:37 White Blood Count 10.5 TH/MM3 Red Blood Count 3.49 MIL/MM3 Hemoglobin 10.2 GM/DL Hematocrit 32.2 % Mean Corpuscular Volume 92.4 FL Mean Corpuscular Hemoglobin 29.2 PG Mean Corpuscular Hemoglobin 31.6 % Concent Red Cell Distribution Width 17.7 % Platelet Count 434 TH/MM3 Mean Platelet Volume 7.3 FL Neutrophils (%) (Auto) 63.4 % Lymphocytes (%) (Auto) 26.0 % Monocytes (%) (Auto) 6.4 % Eosinophils (%) (Auto) 3.4 % Basophils (%) (Auto) 0.8 % Neutrophils # (Auto) 6.6 TH/MM3 Lymphocytes # (Auto) 2.7 TH/MM3 Monocytes # (Auto) 0.7 TH/MM3 Eosinophils # (Auto) 0.4 TH/MM3 Basophils # (Auto) 0.1 TH/MM3 CBC Comment DIFF FINAL Differential Comment Prothrombin Time 10.3 SEC Prothromb Time International 0.9 RATIO Ratio Activated Partial 28.1 SEC Thromboplast Time Sodium Level 141 MEQ/L Potassium Level 3.9 MEQ/L Chloride Level 108 MEQ/L Carbon Dioxide Level 25.1 MEQ/L Anion Gap 8 MEQ/L Blood Urea Nitrogen 25 MG/DL Creatinine 1.03 MG/DL Estimat Glomerular Filtration 52 ML/MIN Rate Random Glucose 104 MG/DL Calcium Level 7.6 MG/DL Magnesium Level 2.0 MG/DL Total Bilirubin 0.1 MG/DL Aspartate Amino Transf 14 U/L (AST/SGOT) Alanine Aminotransferase 12 U/L (ALT/SGPT) Alkaline Phosphatase 94 U/L Total Creatine Kinase 35 U/L Troponin I 0.02 NG/ML B-Type Natriuretic Peptide 423 PG/ML Total Protein 6.8 GM/DL Albumin 2.0 GM/DL [facility] Medical Decision Making Medical Screen Exam Complete: Yes Emergency Medical Condition: Yes Differential Diagnosis SVT versus sinus tachycardia versus A. fib with RVR versus dehydration versus electrolyte abnormality versus sepsis Narrative Course 75-year-old female is brought to the emergency department from her group home facility for evaluation of SVT. Patient is afebrile. She is tachycardic with a heart rate of 156 bpm. Vital signs are stable. EKG shows SVT with a ventricular rate of 156 bpm, no acute ST elevations or depressions. Physical examination is unremarkable. Patient is in no acute distress. IV access is obtained, labs were drawn and sent. Patient is placed on cardiac telemetry and pulse oximetry monitoring. Patient is administered diltiazem 10 mg IV bolus. This immediately converted the patient to sinus rhythm with a ventricular rate of 77 bpm. CBC shows moderate anemia with hemoglobin of 10.2, hematocrit 32.2, otherwise unremarkable. CMP shows renal insufficiency with a creatinine of 1.03, BUN 25, GFR 52. This is slightly above baseline however patient has received IV fluids here in the ED. Cardiac enzymes are negative. BNP is 423. Coags are unremarkable. Chest x-ray shows small right effusion with right lower lobe infiltrate. Patient has remained stable without complaint while here in the emergency department. Her heart rate has remained in the 70s and sinus rhythm. She will be treated as an outpatient for pneumonia with Levaquin per the recommendation of my attending physician Dr. Stone. She is stable to be discharged back to her group home facility. Diagnosis Primary Impression: SVT (supraventricular tachycardia) Additional Impression: Pneumonia Qualified Code: J18.1 - Pneumonia of right lower lobe due to infectious organism Referrals: Primary Care Physician Patient Instructions: General Instructions, Pneumonia (ED) Additional Instructions: Take medication as prescribed with food and a full glass of water. Follow-up with your Primary Care Physician. Return to the ED for any acute worsening of symptoms. Med/Other Pt SpecificInfo: Prescription(s) given Scripts Levofloxacin (Levaquin)750 Mg [id number] Tab PO DAILY 7 Days Prov:Boo Stone MD 11/02/16 Disposition: 03 DISCHARGE TO SNF Condition: Stable Sheridan Godfrey Nov 02, 2016 18:15
[2016-11-02 18:21] VITALS: BP 111/59; PULSE 73; RESP 20; O2SAT 96
[2016-11-02] MEDS ORDERED: DILT1TAB4 PO (18:52)
[2016-11-02] MEDS ORDERED: GENT0.1C TOPICAL (18:52)
[2016-11-02 18:53] LABS: AUTOMATED NEUTROPHIL # 6.6 TH/MM3 (1.8-7.7); BASOPHIL # 0.1 TH/MM3 (0-0.2); BASOPHIL % 0.8 % (0.0-2.0); EOSINOPHIL # 0.4 TH/MM3 (0-0.4); EOSINOPHIL % 3.4 % (0.0-4.0); HEMATOCRIT 32.2 % (35.0-46.0); HEMO FLAGS DIFF FINAL; LYMPHOCYTE # 2.7 TH/MM3 (1.0-4.8); MEAN CELL VOLUME 92.4 FL (80.0-100.0); MEAN CORPUSCULAR HEMOGLOBIN 29.2 PG (27.0-34.0); MEAN CORPUSCULAR HGB CONC 31.6 % (32.0-36.0); MONO % 6.4 % (0.0-8.0); NEUT % 63.4 % (16.0-70.0); PLATELET COUNT 434 TH/MM3 (150-450); RED BLOOD COUNT 3.49 MIL/MM3 (4.00-5.30); RED CELL DISTRIBUTION WIDTH 17.7 % (11.6-17.2); WHITE BLOOD COUNT 10.5 TH/MM3 (4.0-11.0)
[2016-11-02 18:54] LABS: APTT (PATIENT) 28.1 SEC (24.3-30.1); INTERNATIONAL NORMALIZED RATIO 0.9 RATIO; PROTHROMBIN TIME - PATIENT 10.3 SEC (9.8-11.6)
[2016-11-02 19:00] VITALS: BP 106/42; PULSE 74; RESP 16; O2SAT 95
[2016-11-02 19:11] LABS: ALT (GPT) 12 U/L (10-53); ANION GAP 8 MEQ/L (5-15); AST (GOT) 14 U/L (15-37); BICARBONATE 25.1 MEQ/L (21.0-32.0); BLOOD UREA NITROGEN 25 MG/DL (7-18); CHLORIDE 108 MEQ/L (98-107); GLOMERULAR FILTRATION RATE 52 ML/MIN (>89); POTASSIUM 3.9 MEQ/L (3.5-5.1); SODIUM (NA) 141 MEQ/L (136-145)
[2016-11-02 19:16] LABS: ALKALINE PHOSPHATASE 94 U/L (45-117); TOTAL BILIRUBIN ADULT 0.1 MG/DL (0.2-1.0)
--- NOTE | 2016-11-02 19:17 | RADRPT ---
EXAM DATE/TIME: 11/02/2016 18:47 [facility] COMPARISON: CHEST SINGLE AP, August 07, 2016, 0:07. INDICATIONS : Patient states Chest tightness. MEDICAL HISTORY : Hypertension. A-Fib SURGICAL HISTORY : None. ENCOUNTER: Initial ACUITY: 1 day PAIN SCORE: 4/10 LOCATION: Bilateral chest FINDINGS: A single portable frontal view of the chest shows a small right pleural effusion and associated right basilar consolidation. Heart is mildly enlarged. No effusion or infiltrate on the left. Old trauma i nvolving the right proximal humerus.CONCLUSION: Small right effusion with right lower lobe infiltrate. Cardiomegaly. Brandyn Wallace Jr., MD on November 02, 2016 at 19:15 Board Certified Radiologist. This report was verified electronically.
[2016-11-02 19:41] LABS: CREATINE KINASE 35 U/L (26-192)
[2016-11-02] MEDS ORDERED: LEVOFLOXACIN 750 MG TAB PO ONE (19:45)
[2016-11-02] MEDS ORDERED: LEVA750T9 PO (19:45)
--- NOTE | 2016-11-03 11:52 | EKG ---
Date Performed: 11/02/2016 Time Performed: 18:01:55 PTAGE: 75 years EKG: SUPRAVENTRICULAR TACHYCARDIA LEFT VENTRICULAR HYPERTROPHY AND ST-T CHANGE Compared to previ ous tracing, supraventricular tachycardia has replaced Sinus rhythm . ABNORMAL ECG PREVIOUS TRACING : 23.50.44 DOCTOR: Faisal De Interpretating Date/Time 11/03/2016 11:51:34
--- NOTE | 2016-11-03 11:53 | EKG ---
Date Performed: 11/02/2016 Time Performed: 18:20:54 PTAGE: 75 years EKG: Sinus rhythm NONSPECIFIC ST & T-WAVE ABNORMALITY Compared to previous tracing, sinus rhythm is now present and no nspecific ST-T changes are somewhat improved. BORDERLINE ECG PREVIOUS TRACING : 11/02/2016 18.01.55 DOCTOR: Faisal De Interpretating Date/Time 11/03/2016 11:52:28
== END 2016-11-02 21:32 ==
LOC: NEDAMB 17:49
DX: I47.1 Supraventricular tachycardia (principal); J18.1 Lobar pneumonia, unspecified organism; R94.31 Abnormal electrocardiogram [ECG] [EKG]; I10 Essential (primary) hypertension; I48.91 Unspecified atrial fibrillation; E03.9 Hypothyroidism, unspecified; E11.9 Type 2 diabetes mellitus without complications; Z87.2 Personal history of diseases of the skin and subcutaneous tissue; Z87.39 Personal history of other diseases of the musculoskeletal system and connective tissue; Z86.79 Personal history of other diseases of the circulatory system; Z87.19 Personal history of other diseases of the digestive system; Z87.448 Personal history of other diseases of urinary system; Z86.69 Personal history of other diseases of the nervous system and sense organs
CPT/HCPCS: 71010; 80053; 82550; 83735; 83880; 84484; 85025; 85610; 85730; 93005; 96374; 99285; J7030

== ENCOUNTER 2017-02-19 13:05 | Emergency (ER) | payer MEDICARE, OTHER ==
[~2017-02-19 13:05] MED LIST changes: -ASCO1CHW5 PO; -CITRSOL4 PO; +DILT1TAB4 PO; -DULC10SU3 PR; +GENT0.1C TOPICAL; +LEVA750T9 PO; -METR-1 PO; -MILKSUS PO; -ZOFR4TAB PO
[2017-02-19 13:13] VITALS: BP 123/73; PULSE 171; RESP 32; TEMP 98.4; O2SAT 100
[2017-02-19] MEDS ORDERED: LIDOCAINE HCL 1% PF 30 ML VIAL ONE (13:34)
[2017-02-19 13:45] VITALS: PULSE 161; RESP 22; O2SAT 99
[2017-02-19] MEDS ORDERED: ADENOSINE IV SOLN 3 MG/ML 2 ML VIAL ONE ×2 (13:47→13:48)
[2017-02-19 14:04] VITALS: BP 103/58; PULSE 81; RESP 18; O2SAT 100
[2017-02-19] MEDS ORDERED: ADENOSINE IV SOLN 3 MG/ML 2 ML VIAL IV PUSH ONE (14:45)
--- NOTE | 2017-02-19 14:46 | PD ---
HPI Chief Complaint: Leg pain Time Seen by Provider: 13:36 Travel History International Travel<30 days: No Contact w/Intl Traveler<30days: No History of Present Illness HPI 76yo F with PMH of SVT, afib, HTN, chronic lower extremity wound initially came to the ED because her wound care nurse said her right ankle wound is foul smelling and getting worst. Pt has been having that wound for months. Pt states it looks the same to her. Then she was found to have HR int he 160s and said she does feel her heart beating fast. Denies any fever, cough, chest pain , sob, n/v, abdominal pain, focal weakness or numbness. PFSH Past Medical History Arthritis: Yes Heart Rhythm Problems: Yes (a fib) Cancer: No Cardiovascular Problems: Yes (afib) Diabetes: No Endocrine: Yes Gastrointestinal Disorders: Yes Genitourinary: Yes Hypertension: Yes Immune Disorder: No Implanted Vascular Access Dvce: No Musculoskeletal: Yes (right shoulder ROTATOR CUFF/TENDINITIS) Neurologic: Yes Psychiatric: No Reproductive: No Respiratory: No Migraines: Yes Thyroid Disease: Yes Tetanus Vaccination: > 5 Years Influenza Vaccination: Yes : 3 Para: 2 Miscarriage: 1 Past Surgical History Abdominal Surgery: Yes (hernia, gallbladder) Cholecystectomy: Yes Eye Surgery: Yes Hysterectomy: No Other Surgery: Yes Social History Alcohol Use: No Tobacco Use: No Substance Use: No Allergies-Medications (Allergen,Severity, Reaction): Coded Allergies: metronidazole (Unverified Allergy, Unknown, Rash, 02/19/17) Reported Meds & Prescriptions Reported Meds & Active Scripts Active Lortab (Hydrocodone-Acetaminophen) 5-325 Mg Tab 1 Tab PO Q6H PRN Aspirin EC (Aspirin) 81 Mg Tabdr 81 Mg PO DAILY Reported Gentamicin Topical 0.1% Cream 1 Applic TOPICAL ONCE Apply to affected area(s) Diltiazem ER 24 HR 240 Mg Delores 240 Mg PO DAILY Review of Systems Except as stated in HPI: all other systems reviewed are Neg Physical Exam Narrative GENERAL: 76yo F in mild distress. SKIN: Focused skin assessment warm/dry. HEAD: Atraumatic. Normocephalic. EYES: Pupils equal and round. No scleral icterus. No injection or drainage. ENT: No nasal bleeding or discharge. Mucous membranes pink and moist. NECK: Trachea midline. No JVD. CARDIOVASCULAR: Regular rate and rhythm. No murmur appreciated. RESPIRATORY: No accessory muscle use. Clear to auscultation. Breath sounds equal bilaterally. GASTROINTESTINAL: Abdomen soft, non-tender, nondistended. Hepatic and splenic margins not palpable. MUSCULOSKELETAL: RLW: +Ulcer in medial malleolus 12cm by 12cm. No purulent drainage. Mild erythema surrounding the wound. Nonfoul smelling DP 1+. NEUROLOGICAL: Awake and alert. No obvious cranial nerve deficits. Motor grossly within normal limits. Normal speech. PSYCHIATRIC: Appropriate mood and affect; insight and judgment normal. Data Data Last Documented VS Vital Signs Date Time Temp Pulse Resp B/P (MAP) Pulse Ox O2 Delivery O2 Flow Rate FiO2 02/19/17 20:14 02/19/17 18:46 85 18 99 Room Air 02/19/17 13:13 98.4 Orders Orders Lidocaine Pf 1% Inj (Xylocaine-Mpf 1% In (02/19/17 13:34) Adenosine Inj (Adenocard Inj) (02/19/17 13:47) Adenosine Inj (Adenocard Inj) (02/19/17 13:48) Adenosine Inj (Adenocard Inj) (02/19/17 14:45) Complete Blood Count With Diff (02/19/17 14:40) Basic Metabolic Panel (Bmp) (02/19/17 14:40) Troponin I (02/19/17 14:40) Prothrombin Time / Inr (Pt) (02/19/17 14:40) Act Partial Throm Time (Ptt) (02/19/17 14:40) Ankle, Limited (Ap&Lat) (02/19/17 ) Potassium Chloride (Kcl) (02/19/17 16:15) Magnesium (Mg) (02/19/17 16:13) Calcium Gluconate Inj (Calcium Gluconate (02/19/17 16:15) Electrocardiogram (02/19/17 13:52) Electrocardiogram (02/19/17 13:52) Electrocardiogram (02/19/17 13:53) Ketorolac Inj (Toradol Inj) (02/19/17 17:00) Acetamin-Hydrocod 325-5 Mg ([place] 5-325 (02/19/17 18:45) Ed Discharge Order (02/19/17 19:51) Labs Laboratory Tests Test 02/19/17 13:55 White Blood Count 10.8 TH/MM3 Red Blood Count 3.27 MIL/MM3 Hemoglobin 10.0 GM/DL Hematocrit 31.0 % Mean Corpuscular Volume 95.0 FL Mean Corpuscular Hemoglobin 30.6 PG Mean Corpuscular Hemoglobin Concent 32.2 % Red Cell Distribution Width 14.0 % Platelet Count 400 TH/MM3 Mean Platelet Volume 7.3 FL Neutrophils (%) (Auto) 67.5 % Lymphocytes (%) (Auto) 26.0 % Monocytes (%) (Auto) 6.1 % Eosinophils (%) (Auto) 0.0 % Basophils (%) (Auto) 0.4 % Neutrophils # (Auto) 7.3 TH/MM3 Lymphocytes # (Auto) 2.8 TH/MM3 Monocytes # (Auto) 0.7 TH/MM3 Eosinophils # (Auto) 0.0 TH/MM3 Basophils # (Auto) 0.0 TH/MM3 CBC Comment DIFF FINAL Differential Comment Prothrombin Time 10.7 SEC Prothromb Time International Ratio 1.0 RATIO Activated Partial Thromboplast Time 31.1 SEC Blood Urea Nitrogen 19 MG/DL Creatinine 1.14 MG/DL Random Glucose 109 MG/DL Calcium Level 7.9 MG/DL Sodium Level 143 MEQ/L Potassium Level 2.9 MEQ/L Chloride Level 110 MEQ/L Carbon Dioxide Level 23.4 MEQ/L Anion Gap 10 MEQ/L Estimat Glomerular Filtration Rate 46 ML/MIN Magnesium Level 1.8 MG/DL Troponin I LESS THAN 0.02 NG/ML MDM Medical Decision Making Medical Screen Exam Complete: Yes Emergency Medical Condition: Yes Interpretation(s) EKG: SVT 160bpm. LAD. Repeat EKG after adenosine: NSR 87bpm. LVH. ST depressions. Pt has no chest pain. Laboratory Tests Test 02/19/17 13:55 White Blood Count 10.8 TH/MM3 (4.0-11.0) Red Blood Count 3.27 MIL/MM3 (4.00-5.30) Hemoglobin 10.0 GM/DL (11.6-15.3) Hematocrit 31.0 % (35.0-46.0) Mean Corpuscular Volume 95.0 FL (80.0-100.0) Mean Corpuscular Hemoglobin 30.6 PG (27.0-34.0) Mean Corpuscular Hemoglobin Concent 32.2 % (32.0-36.0) Red Cell Distribution Width 14.0 % (11.6-17.2) Platelet Count 400 TH/MM3 (150-450) Mean Platelet Volume 7.3 FL (7.0-11.0) Neutrophils (%) (Auto) 67.5 % (16.0-70.0) Lymphocytes (%) (Auto) 26.0 % (9.0-44.0) Monocytes (%) (Auto) 6.1 % (0.0-8.0) Eosinophils (%) (Auto) 0.0 % (0.0-4.0) Basophils (%) (Auto) 0.4 % (0.0-2.0) Neutrophils # (Auto) 7.3 TH/MM3 (1.8-7.7) Lymphocytes # (Auto) 2.8 TH/MM3 (1.0-4.8) Monocytes # (Auto) 0.7 TH/MM3 (0-0.9) Eosinophils # (Auto) 0.0 TH/MM3 (0-0.4) Basophils # (Auto) 0.0 TH/MM3 (0-0.2) CBC Comment DIFF FINAL Differential Comment Prothrombin Time 10.7 SEC (9.8-11.6) Prothromb Time International Ratio 1.0 RATIO Activated Partial Thromboplast Time 31.1 SEC (24.3-30.1) Blood Urea Nitrogen 19 MG/DL (7-18) Creatinine 1.14 MG/DL (0.50-1.00) Random Glucose 109 MG/DL (74-106) Calcium Level 7.9 MG/DL (8.5-10.1) Sodium Level 143 MEQ/L (136-145) Potassium Level 2.9 MEQ/L (3.5-5.1) Chloride Level 110 MEQ/L (98-107) Carbon Dioxide Level 23.4 MEQ/L (21.0-32.0) Anion Gap 10 MEQ/L (5-15) Estimat Glomerular Filtration Rate 46 ML/MIN (>89) Magnesium Level 1.8 MG/DL (1.5-2.5) Troponin I LESS THAN 0.02 NG/ML Last Impressions Ankle X-Ray 02/19/17 0000 Signed Impressions: Service Date/Time: Sunday, February 19, 2017 14:59 - CONCLUSION: 1. No acute fracture identified. No definite cortical destruction is seen. 2. Extensive soft tissue swelling with calcification in the subcutaneous soft tissues suggesting venous stasis. Tadeo Marshall MD Differential Diagnosis Venous ulcer vs. chronic venous stasis vs. cellulitis vs. PAD vs. SVT Narrative Course 76yo F with chronic ulcer in right ankle since here because wound nurse said it looks bad today. Pt complaining of pain in the nonhealing ulcer. Denies any fever or trauma. Pt was found to be in SVT 150s-160. It was very regular on the monitor and has history of SVT. Attempted vagal maneuver which did not work. Pt given adenosine 6mg IV and SVT converted to normal sinus rhythm in the 80s. Pt states she feels better. Denies any chest pain or sob. Labs reviewed, no leukocytosis. H/H low at 03/12. This is baseline. K: 2.9, replaced orally. Magnesium level was added and it is normal at 1.8. Calcium low at 7.9, given calcium gluconate. Troponin negative. Xray with ankle showed no acute fracture. No definite cortical destruction seen. Extensive soft tissue swelling with calcification in the subcutaneous soft tissues suggesting venous stasis. Pt given toradol and lortab for pain. Pt reevaluated at bedside and pain has improved. HR has been continuously monitored and still in the 80s. Pt is nontoxic appearing and observed in the ED for a few hours. Will have pt follow up with PMD, outpatient wound care or podiatry. Pt has outpatient wound care already. Diagnosis Primary Impression: SVT (supraventricular tachycardia) Additional Impression: Venous ulcer of ankle Qualified Codes: I83.013 - Varicose veins of right lower extremity with ulcer of ankle; L97.319 - Non-pressure chronic ulcer of right ankle with unspecified severity Referrals: Efrem Oquendo DPM call for appointment Chronic right ankle ulcer Patient Instructions: General Instructions Departure Forms: Tests/Procedures Additional Instructions: Please follow up with podiatry and wound care as outpatient. Return to the ED if symptoms worsen. Med/Other Pt SpecificInfo: Prescription(s) given Scripts Hydrocodone-Acetaminophen (Lortab) 5-325 Mg Tab 1 TAB PO Q6H Y for PAIN, #10 TAB 0 Refills Prov: Heike Rodrigues DO 02/19/17 Disposition: 01 DISCHARGE HOME Condition: Stable Heike Rdorigues DO Feb 19, 2017 14:46
[2017-02-19 14:55] VITALS: BP 107/55; PULSE 80; RESP 16; O2SAT 97
--- NOTE | 2017-02-19 15:12 | RADRPT ---
EXAM DATE/TIME: 02/19/2017 14:59 [facility] COMPARISON: CHEST SINGLE AP, November 02, 2016, 18:47. INDICATIONS : Right ankle pain, swelling, and oozing. MEDICAL HISTORY : Hypertension. Afib. SURGICAL HISTORY : Cholecystectomy. Hernia repair. Eye surgery. ENCOUNTER: Initial ACUITY: >1 year PAIN SCORE: 8/10 LOCATION: Right ankle FINDINGS: The bony structures demonstrates diffuse osteopenia. There is no acute fracture. The alignment of the ankle mortise is anatomic. There are moderate degenerative changes. There is diffuse soft tissue edema. There is calcification within the subcutaneous soft tissues sugge sting venous stasis. CONCLUSION: 1. No acute fracture identified. No definite cortical destruction is seen. 2. Extensive soft tissue swelling with calcification in the subcutaneous soft tissues suggesting veno us stasis. Tadeo Marshall MD on February 19, 2017 at 15:09 Board Certified Radiologist. This report was verified electronically.
[2017-02-19 15:19] LABS: AUTOMATED NEUTROPHIL # 7.3 TH/MM3 (1.8-7.7); BASOPHIL % 0.4 % (0.0-2.0); HEMO FLAGS DIFF FINAL; LYMPHOCYTE # 2.8 TH/MM3 (1.0-4.8); MEAN CORPUSCULAR HEMOGLOBIN 30.6 PG (27.0-34.0); MEAN CORPUSCULAR HGB CONC 32.2 % (32.0-36.0); MONO % 6.1 % (0.0-8.0); NEUT % 67.5 % (16.0-70.0); PLATELET COUNT 400 TH/MM3 (150-450); RED BLOOD COUNT 3.27 MIL/MM3 (4.00-5.30); WHITE BLOOD COUNT 10.8 TH/MM3 (4.0-11.0)
[2017-02-19 15:34] LABS: APTT (PATIENT) 31.1 SEC (24.3-30.1); PROTHROMBIN TIME - PATIENT 10.7 SEC (9.8-11.6)
[2017-02-19 15:40] LABS: ANION GAP 10 MEQ/L (5-15)
[2017-02-19 15:41] LABS: BICARBONATE 23.4 MEQ/L (21.0-32.0); BLOOD UREA NITROGEN 19 MG/DL (7-18); CHLORIDE 110 MEQ/L (98-107); GLOMERULAR FILTRATION RATE 46 ML/MIN (>89); SODIUM (NA) 143 MEQ/L (136-145)
[2017-02-19 15:50] LABS: POTASSIUM 2.9 MEQ/L (3.5-5.1)
[2017-02-19] MEDS ORDERED: POTASSIUM CHLORIDE 20 MEQ CONTROLLED RELEASE TAB PO ONE (16:15)
[2017-02-19] MEDS ORDERED: CALCIUM GLUCONATE INJ 1 GM in DEXTROSE 5% IN WATER 100ML INJ 100 ML IV ONE ×2 (16:15)
[2017-02-19 16:27] VITALS: BP 125/65; PULSE 83; RESP 18; O2SAT 99
[2017-02-19] MEDS ORDERED: KETOROLAC TROMETHAMINE 30 MG/ML (IVP) VIAL IV PUSH ONE (17:00)
[2017-02-19] MEDS ORDERED: HYDR-3533 PO (18:41)
[2017-02-19] MEDS ORDERED: ACETAMINOPHEN/HYDROcodone 325 MG/5 MG TAB PO ONE (18:45)
[2017-02-19 18:46] VITALS: BP 150/63; PULSE 85; RESP 18; O2SAT 99
--- NOTE | 2017-02-21 00:01 | EKG ---
Date Performed: 02/19/2017 Time Performed: 13:53:54 PTAGE: 76 years EKG: Sinus rhythm LEFT VENTRICULAR HYPERTROPHY AND ST-T CHANGE ABNORMAL ECG PREVIOUS TRACING : 11/02/2016 18.20 Compared to the previous tracing, previously Afib with RVR converting to NSR DOCTOR: Jc Mark Interpretating Date/Time 02/21/2017 00:01:05
--- NOTE | 2017-02-21 00:03 | EKG ---
Date Performed: 02/19/2017 Time Performed: 13:52:55 PTAGE: 76 years EKG: ATRIAL FIBRILLATION WITH RAPID VENTRICULAR RESPONSE, CONVERTING TO NORMAL Sinus rhythm MODERATE VOLTAGE CRITERIA FOR LVH, CONSIDER NORMAL VARIANT ST DEVIATION AND MODERATE T-WAVE ABNORMAL ITY, CONSIDER LATERAL ISCHEMIA ABNORMAL ECG PREVIOUS TRACING : 02/19/2017 13.52 Compared to the previous tracing, previously Afib with RVR DOCTOR: Jc Mark Interpretating Date/Time 02/21/2017 00:02:04
--- NOTE | 2017-02-21 00:04 | EKG ---
Date Performed: 02/19/2017 Time Performed: 13:52:05 PTAGE: 76 years EKG: ATRIAL FLUTTER/TACHYCARDIA WITH RAPID VENTRICULAR RESPONSE LEFT VENTRICULAR HYPERTROPHY AND ST-T CHANGE ABNORMAL ECG PREVIOUS TRACING : 11/02/2016 18.20 Compared to the previous tracing, previously normal Sinus r [facility] DOCTOR: Jc Mark Interpretating Date/Time 02/21/2017 00:02:30
== END 2017-02-19 20:31 | disposition home or self-care (01) ==
LOC: NEPE 13:05
DX: I47.1 Supraventricular tachycardia (principal); I83.013 Varicose veins of right lower extremity with ulcer of ankle; L97.319 Non-pressure chronic ulcer of right ankle with unspecified severity; I48.91 Unspecified atrial fibrillation; I10 Essential (primary) hypertension
CPT/HCPCS: 73600; 80048; 83735; 84484; 85025; 85610; 85730; 93005; 96365; 96375; 99285; J0610; J1885; J0153